=== PATIENT | female | born 1960 | race Caucasian/White ===

== ENCOUNTER → 2019-01-03 08:03 | Outpatient (CLI) | payer OTHER, SELFPAY ==
--- NOTE | 2019-01-03 08:08 | BI_ITS ---
MAMMOGRAPHY - BILATERAL SCREENING REASON FOR EXAM: Female, 58 years old. Routine annual screening examination. PERTINENT HISTORY: Non-contributory. TECHNIQUE: Digital bilateral breast cesia (3D mammographic acquisition) in the CC and MLO projections. 2-D mediolateral oblique (MLO) and craniocaudad (CC) views of both breasts were obtained. CAD: Full Field Digital Mammography with Computer Added Detection was performed. COMPARISON: Comparison is made with prior arteriogram examination dated July 08, 2016. FINDINGS: Breast Composition: The breasts are heterogeneously dense, which may obscure small masses. There are no dominant masses or suspicious calcifications. No other significant abnormalities are identified. There has been no significant change since the prior study. BI/SCREENING MAMM (CAD), BILAT IMPRESSION: Stable bilateral screening mammogram. Yearly follow-up mammogram recommended. (A) ASSESSMENT CATEGORY: BIRADS Category 1: Negative. A letter regarding these results will be sent to the patient by the facility within 30 days. Approximately 10% of breast cancers are not detected by mammography. A normal mammogram should not delay biopsy of a clinically suspicious abnormality. [id number] Electronically Signed: Satya Brooks, at 9:42 EST , Service support ,
== END ==
PROVIDERS: Referring Provider Family Medicine; Visit Provider Family Medicine
DX: Z12.31 Encounter for screening mammogram for malignant neoplasm of breast (principal)
CPT/HCPCS: 77063; 77067

== ENCOUNTER → 2020-12-24 15:00 | Outpatient (CLI) | payer OTHER, SELFPAY ==
[2020-12-24 18:18] LABS: Anion Gap 6 (5-15); BUN 17 mg/dL (7-18); BUN/Creat Ratio 24.8 RATIO (10-20); Calcium,Total 8.7 mg/dL (8.5-10.1); Chloride 108 mmol/L (98-107); Creatinine, Serum 0.68 mg/dL (0.55-1.02); EST Glomerular Filtration Rate 92 mL/min (>60); Est Glom Filt Rate - Afr Amer 112 mL/min (>60); Glucose 102 mg/dL (74-106); Magnesium 2.1 mg/dL (1.6-2.6); Potassium 3.6 mmol/L (3.5-5.1); Sodium Level 142 mmol/L (136-145); Thyroid Stim Hormone (TSH) 1.11 uIU/mL (0.358-3.74)
== END ==
PROVIDERS: PCP Family Medicine; Visit Provider Family Medicine
DX: R00.2 Palpitations (principal)
CPT/HCPCS: 36415; 80048; 83735; 84443

== ENCOUNTER → 2020-12-28 13:33 | Outpatient (CLI) | payer OTHER, SELFPAY ==
--- NOTE | 2020-12-28 13:37 | BI_ITS ---
MAMMOGRAPHY - BILATERAL SCREENING REASON FOR EXAM: Female, 60 years old. Routine annual screening examination. PERTINENT HISTORY: Non-contributory. TECHNIQUE: Digital bilateral breast roshan (3D mammographic acquisition) in the CC and MLO projections. 2-D mediolateral oblique (MLO) and craniocaudad (CC) views of both breasts were obtained. CAD: Full Field Digital Mammography with Computer Added Detection was performed. COMPARISON: Comparison is made with prior examination dated 01/03/2019. FINDINGS: Breast Composition: The breasts are heterogeneously dense, which may obscure small masses. There are no dominant masses or suspicious calcifications. No other significant abnormalities are identified. There has been no significant change since the prior study. BI/SCRN MAMM (CAD)W/ROSHAN BILAT IMPRESSION: Stable bilateral screening mammogram. Yearly follow-up mammogram recommended. (A) ASSESSMENT CATEGORY: BIRADS Category 1: Negative. A letter regarding these results will be sent to the patient by the facility within 30 days. Approximately 10% of breast cancers are not detected by mammography. A normal mammogram should not delay biopsy of a clinically suspicious abnormality. [id number] Electronically Signed: Satya Brooks MD at 14:23 EST , Service support ,
== END ==
PROVIDERS: PCP Family Medicine; Referring Provider Family Medicine; Visit Provider Family Medicine
DX: Z12.31 Encounter for screening mammogram for malignant neoplasm of breast (principal)
CPT/HCPCS: 77063; 77067

== ENCOUNTER → 2021-01-18 12:41 | Outpatient (CLI) | payer OTHER, SELFPAY ==
--- NOTE | 2021-01-18 12:46 | CDU_ITS ---
Reason For Study: TIA's with complete right vision loss Rt. Velocities/BP Lt. Velocities/BP Prox CCA 90.4/16 cm/sec. Prox CCA 83.4/25.8 cm/sec. Mid CCA 64.3/18.6 cm/sec. Mid CCA 74/22 cm/sec. Dist CCA 68.2/21.3 cm/sec. Dist CCA 76.8/24.8 cm/sec. Prox ICA 57.8/17.3 cm/sec. Prox ICA 80.6/25.8 cm/sec. Mid ICA 81.2/33 cm/sec. Mid ICA 86/34.4 cm/sec. Dist ICA 98.2/36.9 cm/sec. Dist ICA 78.3/28.9 cm/sec. Rt. ICA/CCA = 1.4. Lt. ICA/CCA = 1.1. Prox ECA 70.8/18.6 cm/sec. Prox ECA 75.9/21.1 cm/sec. Rt. Vert. 31.5/12.6 cm/sec. Lt. Vert. 32.5/11.6 cm/sec. Right Extracranial There is intimal thickening but no significant atherosclerotic plaque noted in the right common carotid artery. There is intimal thickening but no significant atherosclerotic plaque noted in the right internal carotid artery. There is intimal thickening but no significant atherosclerotic plaque noted in the right external carotid artery. Antegrade flow is noted in the right vertebral artery. Left Extracranial There is intimal thickening but no significant atherosclerotic plaque noted in the left common carotid artery. There is intimal thickening but no significant atherosclerotic plaque noted in the left internal carotid artery. There is intimal thickening but no significant atherosclerotic plaque noted in the left external carotid artery. Antegrade flow is noted in the left vertebral artery. Procedure Carotid Duplex [id number]. This is a Carotid Duplex examination using B-mode, color flow and specral Doppler. Exam performed in department. Interpretation Summary Mild (<50%) stenosis right extracranial internal carotid. Mild (<50%) stenosis left extracranial internal carotid. Flow within the vertebral arteries is antegrade bilaterally. Ordering Physician: Stepan Yeung Referring Physician: Stepan Yeung Performed By: Stephanie Shea RVT
--- NOTE | 2021-01-18 12:46 | ECHOD_ITS ---
Reason For Study: TIA Procedure This was a 2D Doppler, Color Flow transthoracic echocardiogram. Bubble Study Performed. Exam performed in department. Left Ventricle Normal LV size. Left ventricular systolic function is normal. The estimated ejection fraction is 60 %. No regional wall motion abnormalities noted. Right Ventricle Normal RV size. Normal systolic function. Atria Normal left atrium. Normal right atrium. Bubble contrast study negative for right to left interatrial shunt. Mitral Valve Normal mitral valve. Tricuspid Valve Normal tricuspid valve. Aortic Valve Normal aortic valve. Trisinus/trileaflet aortic valve. Pulmonic Valve Normal pulmonic valve. Great Vessels Normal aortic root. The pulmonary artery is normal size. Normal inferior vena cava. Pericardium/Pleural No pericardial effusion. Medication 22 gauge I.V. with prn adaptor inserted into right arm. Performed a rapid injection of agitated mix of 9 cc saline and 1cc air to assess for atrial septal defect. MMode/2D Measurements & Calculations LVIDd: 4.4 cm IVSd: 0.73 cm Ao root diam: 3.4 cm LVIDs: 2.5 cm LVPWd: 0.99 cm LA dimension: 3.5 cm FS: 42.6 % LAV(MOD-bp): 47.1 ml LA A4 area: 16.7 cm2 LAV(MOD-bp) Indexed: 25.6 ml/m2 LAV(MOD-sp2): 45.4 ml LAV(MOD-sp4): 44.3 ml Time Measurements MV dec time: 0.33 sec Doppler Measurements & Calculations MV E max kt: 70.1 cm/sec Lat Peak E' Kt: 10.5 cm/sec Med Peak E' Kt: 8.4 cm/sec MV A max kt: 95.4 cm/sec E/E' lat: 6.7 E/E' med: 8.4 MV E/A: 0.73 MV V2 max: 84.7 cm/sec MV P1/2t max kt: 72.3 cm/sec Ao V2 max: 109.6 cm/sec MV max P.9 mmHg MV P1/2t: 55.7 msec Ao max P.8 mmHg MV V2 mean: 44.8 cm/sec MV dec slope: 379.6 cm/sec2 MV mean P.95 mmHg MV V2 VTI: 27.2 cm MVA(P1/2t): 3.9 cm2 LV V1 max: 105.2 cm/sec PA V2 max: 79.9 cm/sec TR max kt: 239.3 cm/sec LV V1 max P.4 mmHg TR max P.9 mmHg Interpretation Summary Normal LV size. Left ventricular systolic function is normal. The estimated ejection fraction is 60 %. Bubble contrast study negative for right to left interatrial shunt. Ordering Physician: Stepan Yeung Referring Physician: Stepan Yeung Performed By: Javon Hay RCS
== END ==
PROVIDERS: PCP Family Medicine; Referring Provider Family Medicine; Visit Provider Family Medicine
DX: G45.3 Amaurosis fugax (principal); R00.2 Palpitations
CPT/HCPCS: 93306; 93880; A4216

== ENCOUNTER → 2021-01-20 15:34 | Outpatient (CLI) | payer OTHER, SELFPAY ==
[2021-01-20 14:40] VITALS: BMI 26.8
[2021-01-20 16:27] LABS: AST(SGOT) 16 U/L (15-37); Alanine Aminotransfer ALT/SGPT 28 U/L (13-56); Albumin, Serum 3.8 g/dL (3.2-5.0); Alkaline Phosphatase 73 U/L (45-117); Anion Gap 5 (5-15); BUN 21 mg/dL (7-18); BUN/Creat Ratio 38.7 RATIO (10-20); Bilirubin, Direct 0.14 mg/dL (0.00-0.30); Calcium,Total 8.6 mg/dL (8.5-10.1); Chloride 108 mmol/L (98-107); Cholesterol 224 mg/dL (200); Creatinine, Serum 0.54 mg/dL (0.55-1.02); EST Glomerular Filtration Rate 121 mL/min (>60); Est Glom Filt Rate - Afr Amer 146 mL/min (>60); Globulin 3.5 g/dL (2.2-4.2); Glucose 89 mg/dL (74-106); High Density Lipoprotein 83 mg/dL; Potassium 3.9 mmol/L (3.5-5.1); Protein, Total 7.3 g/dL (6.4-8.2); Sodium Level 140 mmol/L (136-145); Triglycerides 105 mg/dL; Very Low Density Lipoprotein 21 mg/dL (5-40)
== END ==
PROVIDERS: PCP Family Medicine; Referring Provider Internal Medicine Cardiovascular Disease; Visit Provider Internal Medicine Cardiovascular Disease
DX: G45.3 Amaurosis fugax (principal); R00.2 Palpitations
CPT/HCPCS: 36415; 80048; 80061; 80076

== ENCOUNTER 2021-01-26 07:34 | Day surgery (SDC) | payer OTHER, SELFPAY ==
[2021-01-20 14:40] VITALS: BMI 26.8
[2021-01-25 11:29] VITALS: BMI 26.8
--- NOTE | 2021-01-26 08:48 | CL.IE_ITS ---
Patient: SANCHO SHANNON Study Date: 01/26/2021 Performing: Artie Veronica MD : 1960 Age: 60 Gender: female PROCEDURES PERFORMED [id number] OF LOOP RECORDER INDICATIONS Cryptogenic stroke PROCEDURE DETAILS The patient was brought to the Catheterization Lab in the postabsorptive nonsedated state. Infor [facility] consent was obtained prior to the procedure. Local anesthetic was given subcutaneously to the le ft upper chest area with Lidocaine 2%. Incision was made to the left upper chest. ICM Loop Recorder w as inserted. The patient tolerated the procedure well. Estimated Blood Loss: 3 ml's IMPLANTED / EX-PLANTED DEVICES IMPLANTED DEVICE(S): ICM Loop Recorder - Scale Technician: [employer], Model # [id number] , Serial # [id number] DEVICE PARAMETERS CONCLUSIONS / RECOMMENDATIONS Device Conclusions: Successful implantation of a patient activated loop recorder. Device Recommendations: Follow up with Primary Care Physician PROCEDURE MEDICATIONS Antibiotic given in appropriate timeframe. Ancef 2 Gm IV @ 01/26/2021 08:15:47 Signed By Artie Veronica MD On 01/26/2021 08:47:58 Artie Veronica MD
== END 2021-01-26 09:50 | disposition home or self-care (01) ==
LOC: CLSP 07:35
PROVIDERS: PCP Family Medicine; Referring Provider Internal Medicine Cardiovascular Disease; Visit Provider Internal Medicine Cardiovascular Disease
DX: G45.3 Amaurosis fugax (principal); R00.2 Palpitations; F32.9 Major depressive disorder, single episode, unspecified; Z79.82 Long term (current) use of aspirin; Z79.899 Other long term (current) drug therapy; Z87.891 Personal history of nicotine dependence
CPT/HCPCS: 33285; J7040

== ENCOUNTER → 2022-09-05 | Outpatient (CLI) | payer OTHER, SELFPAY ==
--- NOTE | 2022-09-05 13:27 | BI_ITS ---
MAMMOGRAPHY - BILATERAL SCREENING REASON FOR EXAM: Female, 62 years old. Routine annual screening examination. PERTINENT HISTORY: Non-contributory. TECHNIQUE: Digital bilateral breast roshan (3D mammographic acquisition) in the CC and MLO projections. 2-D mediolateral oblique (MLO) and craniocaudad (CC) views of both breasts were obtained. CAD: Full Field Digital Mammography with Computer Added Detection was performed. COMPARISON: Comparison is made with prior study dated 12/28/2020 and 01/03/2019. FINDINGS: Breast Composition: The breasts are heterogeneously dense, which may obscure small masses. There are no dominant masses or suspicious calcifications. Loop recording device is seen in the deep central medial aspect of the left breast. No other significant abnormalities are identified. There has been no significant change since the prior study. BI/SCRN MAMM (CAD)W/ROSHAN BILAT IMPRESSION: Stable bilateral screening mammogram. Yearly follow-up mammogram recommended. (A) ASSESSMENT CATEGORY: BIRADS Category 2: Benign. A letter regarding these results will be sent to the patient by the facility within 30 days. Approximately 10% of breast cancers are not detected by mammography. A normal mammogram should not delay biopsy of a clinically suspicious abnormality. [id number] Electronically Signed: Satya Brooks MD at 14:30 EDT ,
== END | disposition home or self-care (01) ==
LOC: OPBI 13:26
PROVIDERS: PCP Family Medicine; Referring Provider Family Medicine; Visit Provider Family Medicine
DX: Z12.31 Encounter for screening mammogram for malignant neoplasm of breast (principal)
CPT/HCPCS: 77063; 77067

== ENCOUNTER → 2023-04-11 | Outpatient (CLI) | payer OTHER, SELFPAY ==
[2023-04-11 14:58] LABS: Absolute Lymphocyte Count 1.56 X10^3/uL (0.83-4.51); Absolute Neutrophil Count 2.6 X10^3/uL (2.0-7.7); Basophil# 0.04 X10^3/uL; Basophil% 0.8 % (0-1); Eosinophil# 0.08 X10^3/uL; Eosinophils% 1.7 % (0-5); Hematocrit 44.9 % (37-47); Hemoglobin 14.4 g/dL (12.0-15.0); Lymphocyte # 1.56 X10^3/ul (0.83-4.51); Lymphocyte % 32.3 % (19-41); Mean Corp Hgb Conc 32.1 g/dL (32-36); Mean Corpuscular Hgb 30.4 pg (27.0-32.0); Mean Corpuscular Volume 94.7 fL (81-99); Mean Platelet Vol. 10.6 fl (6.2-12.0); Monocyte# 0.53 X10^3/uL; NRBC Flagged by Analyzer 0 % (0-5); Neutrophil # 2.61 X10^3/uL (2.7-7.7); Platelet Count 276 K/mm3 (150-450); RBC Distribution Width CV 12.9 % (11.6-14.6); RBC Distribution Width SD 45.1 fl (35.1-43.9); Red Blood Count 4.74 M/mm3 (4.2-5.4); White Blood Count 4.8 K/mm3 (4.4-11.0)
[2023-04-11 15:39] LABS: AST(SGOT) 20 U/L (15-37); Alanine Aminotransfer ALT/SGPT 19 U/L (13-56); Albumin, Serum 3.9 g/dL (3.2-5.0); Alkaline Phosphatase 56 U/L (45-117); Anion Gap 4 (5-15); BUN 17 mg/dL (7-18); Chloride 106 mmol/L (98-107); Creatinine, Serum 0.71 mg/dL (0.55-1.02); EST Glomerular Filtration Rate 88 mL/min (>60); Est Glom Filt Rate - Afr Amer 107 mL/min (>60); Globulin 3.8 g/dL (2.2-4.2); Glucose 87 mg/dL (74-106); Protein, Total 7.7 g/dL (6.4-8.2); Sodium Level 139 mmol/L (136-145)
== END | disposition home or self-care (01) ==
LOC: BFHLAB 13:36
PROVIDERS: PCP Nurse Practitioner Family; Referring Provider Nurse Practitioner Family; Visit Provider Nurse Practitioner Family
DX: R10.32 Left lower quadrant pain (principal)
CPT/HCPCS: 36415; 80053; 85025

== ENCOUNTER → 2023-05-01 | Outpatient (CLI) | payer OTHER, SELFPAY ==
--- NOTE | 2023-05-01 14:52 | CT_ITS ---
STUDY: CT ABDOMEN AND PELVIS WITH CONTRAST REASON FOR EXAM: Female, 62 years old. 3 week history of right upper quadrant pain. RADIATION DOSAGE (If Supplied By Facility): CTDIvol = ( 12.99 ) mGy, DLP = ( 568.18 ) mGycm TECHNIQUE: Transaxial images were obtained from the dome of the diaphragm to the symphysis pubis without oral contrast. Oral and amp;amp; IV Redi-CAT and amp;amp; 100mL Isovue-300 was administered. Sagittal and coronal images were reconstructed. Individualized dose optimization techniques were used for this CT. COMPARISON: None. FINDINGS: The visualized lung bases are unremarkable. The visualized portions of the heart are within normal limits. Normal liver. Normal gallbladder and extrahepatic biliary system. Normal spleen. Normal pancreas. Normal bilateral adrenal glands. Normal right kidney. 1.2 cm cyst in the lateral portion of the left kidney. Normal visualized stomach. Normal small intestine. There are scattered colonic diverticula consistent with diverticulosis. The appendix is visualized and appears normal. Normal abdominal aorta. Normal inferior vena cava. Normal retroperitoneum. Normal urinary bladder. There is a 3.1 cm x 2.6 cm cyst in the left ovary. There is a 2.2 cm x 1.9 cm cyst in the right ovary. Normal abdominal wall. Normal osseous structures. CT/Abdomen/Pelvis WITH Contrast IMPRESSION: Bilateral ovarian cysts. Scattered sigmoid diverticula. Electronically Signed: Satya Brooks MD at 11:05 EDT ,
== END | disposition home or self-care (01) ==
PROVIDERS: PCP Family Medicine; Referring Provider Nurse Practitioner Family; Visit Provider Nurse Practitioner Family
DX: R10.31 Right lower quadrant pain (principal)
CPT/HCPCS: 74177; Q9967

== ENCOUNTER 2023-05-08 06:49 | Day surgery (SDC) | payer OTHER, SELFPAY ==
[2023-05-08] MEDS: Lactated Ringers 1,000 ML 15 ML IV (07:21)
[2023-05-08 07:22] VITALS: BP 112/68; PULSE 60; RESP 18; TEMP 36.5; O2SAT 100; BMI 26.6
--- NOTE | 2023-05-08 07:53 | H&P.OPEN ---
HPI - General HPI Narrative SANCHO SHANNON, is a 62 F who presents for screening colonoscopy. Patient has not had a colonoscopy in the past. She had a negative Cologuard 2 years ago. She denies any blood in the stool. She says she always has a small amount of right-sided abdominal pain has been going on for the last 3 months. She has no family history of colon cancer she does have family history of polyps. [facility] Medical History (Updated 05/04/23 @ 11:48 by Swati Alexandra) Alcohol use Amaurosis fugax of right eye Cardiology follow-up encounter Former smoker History of diverticulitis History of echocardiogram Intermittent palpitations Migraine headache Post-menopausal Wears contact lenses Home Medications aspirin 81 mg tablet,delayed release (Adult Low Dose Aspirin) 81 mg PO DAILY 01/18/21 [History Last Taken Unknown] metoprolol succinate 25 mg tablet,extended release 24 hr 25 mg PO DAILY #90 tabs 06/08/22 [Rx Last Taken 05/08/23] Allergy/AdvReac Type Severity Reaction Status Date / Time Sulfa (Sulfonamide Allergy hand Verified 05/04/23 11:42 Antibiotics) swelling meperidine [From Demerol] AdvReac vein Verified 05/04/23 11:42 irritation Family History (Updated 04/17/23 @ 10:48 by Alba Shaver) Mother blood clots Hypertension Heart disease CHF Colon polyps Father Hypertension Parkinson disease Brother Hypertension Sister Colon polyps Surgical History (Updated 05/04/23 @ 11:48 by Swati Alexandra) History of History of left heart catheterization (11/29/01) History of loop recorder (01/26/21) History of tubal ligation Social History Smoking Status: Former smoker alcohol intake: current alcohol intake frequency: holidays/special occasions only Past Medical/Surgical History Planned Operation Planned Operative Procedure/s: CSCOPE OA Previous Hospitalizations/Surgeries HX Hospitalizations: No HX of Surgeries: , heart cath, tubal ligation Any Problems With Anesthesia: No You/Your Family Experience Fever (Hyperthermia) With Anes: No Cholinesterase deficiency: No Cardiovascular Hx Chest Pain within Last 2 months: No Hx of Irregular Heartbeat and/or Afib: No Hx Heart Attack: No Hx Congestive Heart Failure: No Hx Rheumatic Fever: No Hx Hypertension: No Hx Internal Defibrillator: No Hx Pacemaker: No Hx Cardiac Catheterization: Yes What facility was last heart cath performed: unknown Date of last Heart Cath: unknown Hx Cardiac Surgery/Stents/Etc.: No Hx Stress Test: Yes Respiratory Chronic Cough: No Hx Chronic Obstructive Pulmonary Disease (COPD): No Hx Asthma: No Hx Emphysema: No Hx Sleep Apnea: No Hx Respiratory Tract Infection/Cold (presently): No Do You Snore Loudly (louder than talking or can be heard): No Do You Often Feel Tired/ Fatigued/ Sleepy Dring Daytime?: No Has Anyone Observed You Stop Breathing During Sleep?: No Result (for STOP score): Negative Hx Smoking: Yes Smoking Status: Former smoker Gastrointestinal Hx Gastroesophageal Reflux: No Hx Ulcer: No Hx Unplanned Weight Loss of 20#: No HX Unplanned Weight Gain of 20#: No Neurological Hx Seizures: No HX Syncope/Blackout Spells/Unconsciousness: No Hx Headaches: No Does patient have nerve stimulator: No Blood Disorder Hx Deep Vein Thrombosis: No Hx High Cholesterol: Yes Hx Hepatitis: No Hx Anemia: No Reproduction : No Genitourinary Hx Dialysis: No Musculoskeletal Hx Arthritis: No Endocrine Hx Diabetes: No Psycho/Social Hx Alcohol Use: No Hx Anxiety: No Hx Depression: Yes Miscellaneous Hx Cancer: No Recent Exposure to Contagious Disease: No Allergies Sulfa (Sulfonamide Antibiotics) Allergy (Verified 05/04/23 11:42) hand swelling meperidine [From Demerol] Adverse Reaction (Verified 05/04/23 11:42) vein irritation Discharge Is Pt Admitted From a Residential, or a [facility]: No After D/C, Where Do you Plan to Go: Return Home From the PAT History Number of Risk Factors: 1 Vital Signs Vital Signs Vital Signs: 05/08/23 07:22 05/08/23 07:22 Temperature 97.7 F L Temperature Source Temporal Pulse Rate 60 Respiratory Rate 18 Respiratory Pattern Normal Blood Pressure 112/68 Blood Pressure Mean 82 Blood Pressure Source Monitor Blood Pressure Position Semi-Fowlers Blood Pressure Location Right Arm Pulse Ox 100 Oxygen Delivery Method Room Air Weight Weight: 165 lb Body Mass Index (BMI) 26.6 Physical Exam Const alert and oriented x3 HEENT normocephalic Eyes PERRL Resp normal respiratory effort and normal air movement Cardio regular rate and regular rhythm GI soft to palpation, non-tender and non-distended Extremity normal to inspection Assessment & Plan Assessment/Plan (1) Encounter for screening for malignant neoplasm of colon: PLAN: I explained endoscopy in detail to the patient. I explained the risks including but not limited to stroke or heart attack with anesthesia, perforation of the GI tract, bleeding, infection. I explained that any of these could necessitate further emergency surgery. The patient understands and all questions were answered sufficiently. The patient wishes to proceed with procedure. Nirmal Newberry MD Pager: [facility] [address] [place] [address] [address] [place] [address] Office: Surgery Risks - Colonoscopy Risks Include but are not Limited To: Risks include but are not limited to: Bleeding, perforation requiring further surgery, inability to complete colonoscopy requiring barium enema.
[2023-05-08 08:22] VITALS: BP 112/68; BP 88/52; PULSE 62; RESP 12; TEMP 36.4; O2SAT 95
--- NOTE | 2023-05-08 08:26 | OP.COLON_ITS ---
Patient Name: Agnely Mancia Procedure Date: 05/08/2023 7:56 AM Date of : 1960 Age: 62 Procedure: Colonoscopy Indications: Screening for colorectal malignant neoplasm Providers: Nirmal Newberry MD Medicines: Monitored Anesthesia Care Patient Profile: This is a 62 year old female. Refer to note in patient chart for documentation of history and physical. Last Colonoscopy: none. The patient's first colonoscopy is today. Complications: No immediate complications. Procedure: Pre-Anesthesia Assessment: - Prior to the procedure, a History and Physical was performed, and patient medications and allergies were reviewed. The patient's tolerance of previous anesthesia was also reviewed. The risks and benefits of the procedure and the sedation options and risks were discussed with the patient. All questions were answered, and informed consent was obtained. Prior Anticoagulants: The patient has taken no previous anticoagulant or antiplatelet agents. ASA Grade Assessment: II - A patient with mild systemic disease. After reviewing the risks and benefits, the patient was deemed in satisfactory condition to undergo the procedure. After I obtained informed consent, the scope was passed under direct vision. Throughout the procedure, the patient's blood pressure, pulse, and oxygen saturations were monitored continuously. The colonoscope was introduced through the anus and advanced to the cecum, identified by appendiceal orifice and ileocecal valve. The colonoscopy was performed without difficulty. The patient tolerated the procedure well. The quality of the bowel preparation was good. Scope In: 8:05:12 AM Scope Withdrawal Time 0 hours 6 minutes 25 seconds Scope Out: 8:18:39 AM Total Procedure Duration Time 0 hours 13 minutes 27 seconds Findings: The entire examined colon appeared normal on direct and retroflexion views. Impression: - The entire examined colon is normal on direct and retroflexion views. - No specimens collected. Recommendation: - Discharge patient to home. - Resume previous diet. - Continue present medications. - Repeat colonoscopy in 10 years for screening purposes. Procedure Code(s): --- Professional --- 66200, Colonoscopy, flexible; diagnostic, including collection of specimen(s) by brushing or washing, when performed (separate procedure) Diagnosis Code(s): --- Professional --- Z12.11, Encounter for screening for malignant neoplasm of colon CPT copyright 2017 [employer]. All rights reserved. The codes documented in this report are preliminary and upon instrument worker review may be revised to meet current compliance requirements. Nirmal Newberry MD 05/08/2023 8:26:17 AM This report has been signed electronically. Number of Addenda: 0 Note Initiated On: 05/08/2023 7:56 AM
[2023-05-08 08:27] VITALS: BP 112/68; BP 99/57; PULSE 74; RESP 18; O2SAT 99
--- NOTE | 2023-05-08 08:27 | OP.CCLET_ITS ---
05/08/2023 Alicia Alston [address] [place] [address] Re : Colonoscopy procedure for Angely Gavino Dear Dr. Alston This procedure was performed on Monday, May 08, 2023. My impressions and recommendations are as follows: Impressions : - The entire examined colon is normal on direct and retroflexion views. - No specimens collected. Recommendations : - Discharge patient to home. - Resume previous diet. - Continue present medications. - Repeat colonoscopy in 10 years for screening purposes. My findings are described in the full procedure note, which is enclosed. If I can be of further assistance, please feel free to contact me at Doctor phone number(s): , Work: . Sincerely, Nirmal Newberry MD 05/08/2023 8:26:17 AM This report has been signed electronically.
[2023-05-08 08:29] VITALS: BP 112/68; BP 98/85; PULSE 72; RESP 18; O2SAT 97
[2023-05-08 08:34] VITALS: BP 112/68; BP 93/66; PULSE 59; RESP 18; TEMP 36.1; O2SAT 97
[2023-05-08 08:55] VITALS: BP 112/68
== END 2023-05-08 09:04 | disposition home or self-care (01) ==
LOC: SDC 06:56 → AC 06:57
PROVIDERS: PCP Family Medicine; Referring Provider Family Medicine; Visit Provider Surgery
PROC: 0DJD8ZZ Inspection of Lower Intestinal Tract, Via Natural or Artificial Opening Endoscopic (ICD-10-PCS; CPT 45378; principal; 2023-05-08 07:55)
DX: Z12.11 Encounter for screening for malignant neoplasm of colon (principal); Z79.82 Long term (current) use of aspirin; Z87.891 Personal history of nicotine dependence; Z79.899 Other long term (current) drug therapy; Z87.19 Personal history of other diseases of the digestive system
CPT/HCPCS: 45378; J7120; J2405

== ENCOUNTER → 2023-09-13 | Outpatient (CLI) | payer OTHER, SELFPAY ==
--- NOTE | 2023-09-13 13:37 | BI_ITS ---
MAMMOGRAPHY - BILATERAL SCREENING REASON FOR EXAM: Female, 63 years old. Routine annual screening examination. PERTINENT HISTORY: Non-contributory. TECHNIQUE: Digital bilateral breast roshan (3D mammographic acquisition) in the CC and MLO projections. 2-D mediolateral oblique (MLO) and craniocaudad (CC) views of both breasts were obtained. CAD: Full Field Digital Mammography with Computer Added Detection was performed. COMPARISON: Comparison is made with prior study September 05, 2022 and December 28, 2020. FINDINGS: Breast Composition: The breasts are heterogeneously dense, which may obscure small masses. There are no dominant masses or suspicious calcifications. A loop recorder device is seen in the deep central medial portion of the left breast. No other significant abnormalities are identified. There has been no significant change since the prior study. BI/SCRN MAMM (CAD)W/ROSHAN BILAT IMPRESSION: Stable bilateral screening mammogram. Yearly follow-up mammogram recommended. (A) ASSESSMENT CATEGORY: BIRADS Category 2: Benign. A letter regarding these results will be sent to the patient by the facility within 30 days. Approximately 10% of breast cancers are not detected by mammography. A normal mammogram should not delay biopsy of a clinically suspicious abnormality. [id number] Electronically Signed: Satya Brooks MD at 14:43 EST ,
== END | disposition home or self-care (01) ==
LOC: OPBI 13:36
PROVIDERS: PCP Family Medicine; Referring Provider Family Medicine; Visit Provider Family Medicine
DX: Z12.31 Encounter for screening mammogram for malignant neoplasm of breast (principal)
CPT/HCPCS: 77063; 77067

== ENCOUNTER 2023-11-25 22:17 | Inpatient (IN) | payer OTHER, MEDICARE, SELFPAY ==
[2023-11-25 22:24] VITALS: BP 130/68; PULSE 107; RESP 28; TEMP 37.4; O2SAT 70; BMI 27.8
--- NOTE | 2023-11-25 22:25 | ED.RN ---
pt walked in with friends assisting. blue lips. vitals obtained, pre-reg and then took straight to ED room 1 and placed on 4L NC.
[2023-11-25 22:35] VITALS: BP 130/68; PULSE 107; RESP 28; TEMP 37.4; O2SAT 89
--- NOTE | 2023-11-25 22:44 | ED.VIS.DYS ---
HPI History of Present Illness Chief Complaint: Shortness of Breath Informant: patient and family Narrative Narrative: Patient presents with cough and dyspnea. Patient states she has been coughing for about 2 weeks. It has been a dry cough. No productivity. No blood. It does not hurt to breathe. No chest pain or palpitations. She has not heard wheezing. She has felt kind of tired. She has taken COVID test that were negative. She thought she might be tired because her son's wedding was today and she has been busy with that. She has no recent travel surgery immobilization personal or family history of DVT or PE. No leg pain or swelling. No fevers at any time. She quit smoking over 30 years ago. She has never had a cardiovascular disease. She has a history of an increased heart rate and is on metoprolol but has been on a stable dose for 3 years. She states it is a little hard to breathe over the last 2 or so days. But coughing was 2 weeks. But no discomfort whatsoever. [facility] Medical History Alcohol use Amaurosis fugax of right eye Cardiology follow-up encounter Former smoker History of diverticulitis History of echocardiogram Intermittent palpitations Migraine headache Post-menopausal Wears contact lenses Home Medications aspirin 81 mg tablet,delayed release (Adult Low Dose Aspirin) 81 mg PO DAILY 01/18/21 [History Last Taken Unknown] metoprolol succinate 25 mg tablet,extended release 24 hr 25 mg PO DAILY #90 tabs 07/28/23 [Rx Last Taken Unknown] ascorbic acid (vitamin C) 500 mg tablet,extended release (C Complex) 500 mg PO DAILY 11/25/23 [History Last Taken Unknown] Allergy/AdvReac Type Severity Reaction Status Date / Time Sulfa (Sulfonamide Allergy hand Verified 11/25/23 22:42 Antibiotics) swelling meperidine [From Demerol] AdvReac vein Verified 11/25/23 22:42 irritation Family History Mother blood clots Hypertension Heart disease CHF Colon polyps Father Hypertension Parkinson disease Brother Hypertension Sister Colon polyps Surgical History History of History of left heart catheterization (11/29/01) History of loop recorder (01/26/21) History of tubal ligation Social History Smoking Status: Former smoker alcohol intake: current alcohol intake frequency: holidays/special occasions only ROS ROS ED Constitutional Constitutional ED: Denies chills, fever(s) or sweats Eyes Eyes: Denies change in vision ENT ENT ED: Denies rhinorrhea or sore throat Cardiovascular Cardiovascular: Denies chest pain, palpitations or racing heartbeat Respiratory/Chest Respiratory/Chest: Reports cough, dyspnea and dyspnea on exertion; Denies sputum Gastrointestinal Gastrointestinal: Denies nausea or vomiting Musculoskeletal Musculoskeletal: Reports myalgias and other Details: Had some slight myalgias earlier in the illness. Integumentary Denies rash Neurologic Neurologic: Denies headache(s) Endocrine Endocrinology: Denies polydipsia or polyuria Hematologic/Lymphatic Hematologic/Lymphatic: Denies lymphadenopathy Allergic/Immunologic Allergic/Immunologic ED: Denies urticaria EXAM Physical Exam Narrative Exam Narrative: CONSTITUTIONAL: Patient is nontoxic in appearance. The patient looks comfortable. Patient is running about 89% on 6 L. But she looks amazingly comfortable with this. She is telling her history. She is smiling and laughing. She is joking with her friends and us. She has a wide awake alert and shockingly nontoxic. HEENT: No notable trauma. Mucous membranes still moist. No sinus tenderness. I see no swelling or mass. She does speak with a very quiet voice and has admitted to having some laryngitis with this. But she does not feel like her throat is closing in any way. EYES: No conjunctival injection. No proptosis. NECK:No JVD. No stridor. CARDIOVASCULAR: Mildly tachycardic rate. Regular rhythm except for an occasional PAC on the monitor. No notable murmur. No JVD. RESPIRATORY: Some increased work of breathing but much less than 1 would think considering her hypoxia. She has a few coarse breath sounds in her mid lower lungs. No definitive wheezing. No specific rhonchi. GASTROINTESTINAL: Not distended. Bowel sounds are normal. No tenderness. No guarding. No rebound. No palpable mass. No bruit is heard. GENITOURINARY: No tenderness over the bladder. No CVA tenderness. MUSCULOSKELETAL: Atraumatic. No peripheral edema. No cord. No tenderness along the deep venous system. No asymmetry. No distended veins. She states her legs are normal. NEUROLOGICAL: Patient is alert and appropriate. No focal deficit noted. SKIN: No noted rashes. No diaphoresis. She apparently was a bit cyanotic when she came through the door at 70% but her color is normal now. PSYCHIATRIC: Patient is calm. Mood is appropriate. Const Vital Signs: 11/25/23 22:24 11/25/23 22:35 11/25/23 22:35 Temperature 99.4 F H 99.4 F H Temperature Source Oral Oral Pulse Rate 107 H 107 H Respiratory Rate 28 H 28 H Respiratory Effort Short of Breath Respiratory Pattern Gasping Blood Pressure 130/68 H 130/68 H Blood Pressure Mean 88 88 Pulse Ox 70 89 Oxygen Delivery Method Room Air Nasal Cannula Oxygen Flow Rate (L/min) 6 Fraction of Inspired Oxygen (FIO2) 11/25/23 22:54 11/25/23 23:00 11/25/23 23:00 Temperature Temperature Source Pulse Rate 104 H Respiratory Rate 26 H Respiratory Effort Respiratory Pattern Tachypnea Blood Pressure Blood Pressure Mean Pulse Ox 97 96 Oxygen Delivery Method Nasal Cannula Nasal Cannula Oxygen Flow Rate (L/min) 6 6 Fraction of Inspired Oxygen (FIO2) 11/26/23 01:00 11/26/23 01:14 11/26/23 01:15 Temperature Temperature Source Pulse Rate 94 89 Respiratory Rate 28 H 25 H Respiratory Effort Respiratory Pattern Tachypnea Blood Pressure 109/52 L Blood Pressure Mean 71 Pulse Ox 95 92 50 Oxygen Delivery Method Airvo Airvo Oxygen Flow Rate (L/min) Fraction of Inspired Oxygen (FIO2) 50 50 11/26/23 01:16 Temperature Temperature Source Pulse Rate 90 Respiratory Rate 25 H Respiratory Effort Respiratory Pattern Blood Pressure 95/81 H Blood Pressure Mean 85 Pulse Ox 93 Oxygen Delivery Method Oxygen Flow Rate (L/min) Fraction of Inspired Oxygen (FIO2) MDM MDM MDM Narrative Medical decision making narrative: Although she does not have notable wheezing, she does have auscultatory sounds and she will be given a DuoNeb to see if this provides benefit. We will do a CTA. Even if her D-dimer is negative and x-ray is negative we need more definitive answers due to her significant hypoxia. My independent interpretation of the patient's CTA shows diffuse and increased parenchymal density throughout both lung harding. I do not see any definitive PE. But I am awaiting final read. I did compare this to an abdominal CT from May 2023 and I saw none of those lung changes on that film. Patient's CBC shows nonspecific elevation of the white count 11.1 with normal platelets and hemoglobin. Patient's basic metabolic panel shows mildly low potassium at 3.4 and mildly elevated BUN and creatinine. She is hydrated. Glucose is also little bit up at 142. Patient's hepatic function shows no marked abnormalities. Patient's BNP is normal at 64. Patient's troponin is negative at 25. Patient's lactate is mildly elevated at 2.5 which is expected since she was so hypoxic. I reviewed prior records as an outpatient on the patient's electronic medical record. She had what was essentially a normal cardiac echo in January 2021. Patient will be treated as if she has pneumonia. She has a slight rise of her white count. She is coughing and she has changes on her scan. But this could also be inflammatory or other process. I think she does need to come in the hospital with her significant hypoxia. Even though she is tolerating and amazingly well. She will likely need to see pulmonology. I discussed case with hospitalist. Lab Data Attestation: I reviewed the patient's lab results. Labs: Laboratory Results - last 24 hr 11/25/23 22:30 WBC 11.1 H RBC 4.41 Hgb 13.1 Hct 40.3 MCV 91.4 MCH 29.7 MCHC 32.5 RDW Std Deviation 44.3 H RDW Coeff of Rebekah 13.2 Plt Count 332 MPV 10.0 Immature Gran % (Auto) 0.400 Neut % (Auto) 80.3 H Lymph % (Auto) 10.7 L Stokes % (Auto) 5.2 Eos % (Auto) 3.1 Baso % (Auto) 0.3 Absolute Neuts (auto) 8.9 H Absolute Lymphs (auto) 1.18 Nucleated RBC % 0 Sodium 138 Potassium 3.4 L Chloride 106 Carbon Dioxide 25.0 Anion Gap 7 BUN 33 H Creatinine 1.14 H Estim Creat Clear Calc 51.90 Est GFR (MDRD) Af Amer 62 Est GFR (MDRD) Non-Af 51 L BUN/Creatinine Ratio 28.9 H Glucose 142 H Lactic Acid 2.5 H* Calcium 10.1 Total Bilirubin 0.60 AST 52 H ALT 52 Alkaline Phosphatase 62 Troponin I High Sens 25 B-Natriuretic Peptide 64.0 Total Protein 7.4 Albumin 3.3 Globulin 4.1 Albumin/Globulin Ratio 0.8 L Radiography Diagnostic Testing: Clinical Impression(s) from Imaging Studies Chest CTA 11/25/23 23:40 IMPRESSION: 1. Patchy infiltrates involving the lower lobes. Patchy ground glass opacities are seen involving the upper lungs. Differential diagnosis includes pulmonary edema, alveolar damage, ARDS, infectious and inflammatory processes including atypical pneumonia. 2. No PE. [facility] program was used to assist in the detection of abnormal findings. Electronically Signed: Carlos Varma MD at 0:20 EST , EKG Initial EKG: Comments: My independent interpretation of her EKG shows sinus rhythm with slightly tachycardic rate at 107. There is an occasional PAC with compensatory pause. There are diffuse nonspecific ST and T wave changes. No indication of acute ST elevation ID. OK interval, QRS duration and QTc are normal. This EKG is a bit different than 1 I was able to find from 24 December 2020. Management Discussion w/another healthcare provider: Hospitalist Discharge Plan Dx/Rx/DC Orders Clinical Impression: Leukocytosis, Hypoxia, Pneumonia, Acidosis, lactic Disposition Disposition: Acute Care [facility] Discharge Date/Time: 11/26/23 02:00
[2023-11-25 22:54] VITALS: O2SAT 97
[2023-11-25 23:00] VITALS: PULSE 104; RESP 26; O2SAT 96
[2023-11-25] MEDS: Ipratropium/Albuterol Sulfate 3 ML AMPUL.NEB INHALATION (23:01)
[2023-11-25 23:03] LABS: Absolute Lymphocyte Count 1.18 X10^3/uL (0.83-4.51); Absolute Neutrophil Count 8.9 X10^3/uL (2.0-7.7); Basophil# 0.03 X10^3/uL; Basophil% 0.3 % (0-1); Eosinophil# 0.34 X10^3/uL; Eosinophils% 3.1 % (0-5); Hematocrit 40.3 % (37-47); Hemoglobin 13.1 g/dL (12.0-15.0); Lymphocyte # 1.18 X10^3/ul (0.83-4.51); Lymphocyte % 10.7 % (19-41); Mean Corp Hgb Conc 32.5 g/dL (32-36); Mean Corpuscular Hgb 29.7 pg (27.0-32.0); Mean Corpuscular Volume 91.4 fL (81-99); Monocyte# 0.57 X10^3/uL; Monocyte% 5.2 % (0-10); NRBC Flagged by Analyzer 0 % (0-5); Neutrophil % 80.3 % (47-70); Platelet Count 332 K/mm3 (150-450); RBC Distribution Width CV 13.2 % (11.6-14.6); RBC Distribution Width SD 44.3 fl (35.1-43.9); Red Blood Count 4.41 M/mm3 (4.2-5.4); White Blood Count 11.1 K/mm3 (4.4-11.0)
[2023-11-25 23:22] LABS: ALB/GLOB Ratio 0.8 RATIO (0.9-2.4); AST(SGOT) 52 U/L (15-37); Alanine Aminotransfer ALT/SGPT 52 U/L (13-56); Albumin, Serum 3.3 g/dL (3.2-5.0); Alkaline Phosphatase 62 U/L (45-117); Anion Gap 7 (5-15); BUN 33 mg/dL (7-18); BUN/Creat Ratio 28.9 RATIO (10-20); Calcium,Total 10.1 mg/dL (8.5-10.1); Chloride 106 mmol/L (98-107); Creatinine, Serum 1.14 mg/dL (0.55-1.02); EST Glomerular Filtration Rate 51 mL/min (>60); Est Glom Filt Rate - Afr Amer 62 mL/min (>60); Globulin 4.1 g/dL (2.2-4.2); Glucose 142 mg/dL (74-106); Potassium 3.4 mmol/L (3.5-5.1); Protein, Total 7.4 g/dL (6.4-8.2); Sodium Level 138 mmol/L (136-145); Troponin-I HS 25 pg/mL (3.0-54.0)
[2023-11-25 23:39] LABS: Lactic Acid 2.5 mmol/L (0.4-1.9)
--- NOTE | 2023-11-25 23:40 | CT_ITS ---
EXAM: CT ANGIOGRAPHY CHEST WITHOUT AND WITH INTRAVENOUS CONTRAST CLINICAL INDICATION: pe TECHNIQUE: Helically acquired angiography images were obtained of the chest without and with intravenous contrast. CTDIvol = ( 7.69 ) mGy, DLP = ( 260.74 ) mGycm This CT exam was performed using one or more of the following dose reduction techniques: automated exposure control, adjustment of the mA and/or kV according to patient size, and/or use of iterative reconstruction technique. MIP reconstructed images were created and reviewed. CONTRAST: IV 100mL [id number] COMPARISON: No relevant prior studies available. FINDINGS: PULMONARY ARTERIES: Unremarkable. Normal in caliber. No evidence of pulmonary embolism. No PE. AORTA: Unremarkable. No aortic aneurysm or dissection. GREAT VESSELS OF AORTIC ARCH: Unremarkable. Normal in caliber. No evidence of dissection. LUNGS AND PLEURAL SPACES: Patchy infiltrates involving the lower lobes. Patchy ground glass opacities are seen involving the upper lungs. Differential diagnosis includes pulmonary edema, alveolar damage, ARDS, infectious and inflammatory processes including atypical pneumonia. No mass. No pleural effusions or pneumothorax. No airway narrowing or obstruction. HEART: Unremarkable. Heart size is normal. No pericardial effusion. No significant coronary artery calcifications. MEDIASTINUM: Unremarkable. No mediastinal or hilar adenopathy. Esophagus is unremarkable. No hiatal hernia. THYROID: Unremarkable. No thyroid lesions. BONES/JOINTS: Unremarkable. No suspicious lytic or blastic abnormality. KIDNEYS AND URETERS: Incompletely imaged hypodense lesion (exophytic) at the lateral aspect of left kidney measuring [address]/CTA Chest W/WO Contrast IMPRESSION: 1. Patchy infiltrates involving the lower lobes. Patchy ground glass opacities are seen involving the upper lungs. Differential diagnosis includes pulmonary edema, alveolar damage, ARDS, infectious and inflammatory processes including atypical pneumonia. 2. No PE. [facility] program was used to assist in the detection of abnormal findings. Electronically Signed: Carlos Varma MD at 0:20 EST ,
[2023-11-26] VITALS (21 sets, daily range): BP systolic 95–119; BP diastolic 52–81; PULSE 79–110; RESP 20–28; TEMP 36.8–37.7; O2SAT 50–98; BMI 26.8
--- OUTSIDE RECORDS SUMMARY | 2023-11-26 00:07 | XMS RPT_ITS | CCD ---
Author Name Unknown Address [address] [place] [address] Organization [facility] Care Team Providers Care Commercial Litigation Attorney Name Role Phone [facility] Primary Care Provider ANNABEL Harris Attending Unavailable [facility] Primary Care Unavailable Allergies Allergy Classification Reported Allergen(s) Allergy Type Date of Onset Reaction(s) Facility (3 sources) Meperidine Drug Allergy 07-31-2015 Rash [facility] (3 sources) Sulfonamides (Antibiotic) Drug Allergy 07-31-2015 Swelling [facility] Medications Current Medications Medication Drug Class(es) Dates Sig (Normalized) Sig (Original) fluconazole 150 mg oral tablet (1 source) Azole Antifungal Start: 04-24-2023 End: 04-28-2023 fluconazole (Diflucan) 150 MG tablet Take 1 tablet (150 mg) by mouth Every 3 days for 2 doses. 2 tablet 1 04/24/2023 04/28/2023 Active Metoprolol (3 sources) beta-Adrenergic [place] Start: 01-04-2021 METOPROLOL SUCCINATE ER PO Problems Problem Classification Problem Date Documented Da te Episodic/Chronic Abdominal pain (3 sources) Pain in pelvis; Translations: [Pelvic and perineal pain] Onset: 04-19-2023 04-19-2023 Episodic Other screening for suspected conditions (not mental disorders or infectious disease) (3 sources) Patient encounter status; Translations: [Encounter for screening mammogram for malignant neoplasm of breast] Onset: 04-19-2023 04-19-2023 Episodic Results Test Name Value Interpretation Reference Range Facil ity Vital Signs Date Time Vital Sign Value Performing Clinician Rickey grossman 04-19-2023 11:51-0400 Body height 167.6 cm Annabel Miner MD Work Phone: [facility] 04-19-2023 11:51-0400 Body mass index (BMI) [Ratio] 26.79 kg/m2 Annabel Miner MD Work Phone: [facility] 04-19-2023 11:51-0400 Body weight 75.3 kg Annabel Miner MD Work Phone: [facility] 04-19-2023 11:51-0400 Diastolic blood pressure 79 mm[Hg] Annabel Miner MD Work Phone: [facility] 04-19-2023 11:51-0400 Heart rate 69 /min Annabel Miner MD Work Phone: [facility] 04-19-2023 11:51-0400 Systolic blood pressure 137 mm[Hg] Annabel Miner MD Work Phone: [facility] Encounters Encounter Date Encounter Type Care Provider Facility Start: 04-24-2023 Orders Only Annabel Arita Work Phone: [facility] Start: 04-21-2023 Telephone encounter Samantha COLORADO [facility] Clinical Communication Procedures Date Procedure Procedure Detail Performing Clinician Start: 09-05-2022 Mammography Annabel Orta Work Phone: Start: 04-27-2020 Microscopic observat ion [Identifier] in Cervix by Cyto stain Annabel Miner MD Work Phone: Plan of Treatment Date Care Activity Detail Author Start: 04-27-2025 Screening for malign ant neoplasm of cervix [facility] Start: 04-24-2024 End: 04-24-2024 Patient encounter procedure 04/24/2024 10:00 AM EDT Office Visit [facility] [address] [place] [address] [address] [place], [place] [id number] Coty Mcduffie MD [address] [facility], [address] [place] [address] [facility] Start: 09-05-2023 Screening for malign ant neoplasm of breast Mammogram [facility] Start: 07-07-2023 Influenza vaccination Influenz a Vaccine (Season Ended) [facility] Start: 05-23-2023 End: 05-23-2023 Professional / ancillary services management 05/23/2023 11:45 AM EDT Ancillary Procedure [facility] [address] [place] [address] [address] [place] [address] [facility] Start: 04-27-2023 Screening for malign ant neoplasm of cervix Pap Smear [facility] Start: 04-19-2023 End: 06-19-2024 MG Breast - bilateral Screening Bilateral screening mammogram Imaging Routine Encounter for screening mammogram for malignant neoplasm of breast Expected: 04/19/2023, Expires: 06/19/2024 [facility] Payers Date Payer Category Payer Private Health [facility] [id number] 2015-Present [address] [address] [place] [address] Commercial [id number] 2015 Private Health Insurance [id number] Social History Date Type Detail Facility Tobacco smoking status NHIS Never smoked tobacco [facility] Start: 04-19-2023 Alcohol intake Current drinke r of alcohol (finding) [facility] Start: 04-19-2023 History of Social function [facility] Start: 04-19-2023 Tobacco use panel [facility] Start: 1960 Sex Assigned At Not on file [facility] Start: 04-09-2023 End: 04-19-2023 Exposure to SARS-CoV-2 (event) Not sure [facility] Telephone encounter Note 04-24-2023 Telephone Encounter - Loan Marlow MA - 04/24/2023 9:09 AM EDT Note Date & Type Note Facility 04-24-2023 Telephone encounter Note Form atting of this note might be different from the original. Patient notified Dr Miner sent Rx to pharmacy [facility] Note 04-24-2023 Telephone Encounter - Loan Marlow MA - 04/24/2023 9:09 AM EDTTelephone Encounter - Samantha Lawrence LPN - 04/21/2023 11:41 AM EDT Note Date & Type Note Facility 04-24-2023 Miscellaneous Notes Formattin g of this note might be different from the original. Patient notified Dr Miner sent Rx to pharmacy S: Patient spoke with [facility] nurse regarding medication being sent for yeast infection B: Patient states she had an appointment a few days ago and a medication for yeast infection was suppose to be sent in and she called the pharmacy and it is not there. I checked and advised it was not sent and I will send message to provider to send in A: Advised Patient I would send message to provider R: Sent TE to provider documented in this encounter [facility] Telephone encounter Note 04-21-2023 Telephone Encounter - Samantha Lawrence LPN - 04/21/2023 11:41 AM EDT Note Date & Type Note Facility 04-21-2023 Telephone encounter Note Form atting of this note might be different from the original. S: Patient spoke with [facility] nurse regarding medication being sent for yeast infection B: Patient states she had an appointment a few days ago and a medication for yeast infection was suppose to be sent in and she called the pharmacy and it is not there. I checked and advised it was not sent and I will send message to provider to send in A: Advised Patient I would send message to provider R: Sent TE to provider [facility] History of Present illness Narrative 04-19-2023 Annabel Miner MD - 04/19/2023 11:45 AM EDT Note Date & Type Note Facility 04-19-2023 History of Presen t illness Narrative Angely Mancia 04/19/2025 62 y.o. Chief Complaint Patient presents with Annual Exam No LMP recorded. Patient is postmenopausal. Primary Care Physician: [facility] HPI : Angely Mancia is a 62 y.o. female The patient was seen and examined today for her annual exam. No Dyspareunia. Her bowels are regular. There are no voiding complaints. She denies any bloating. She denies vaginal discharge. Diet and exercise reviewed, pap and mammogram guidelines reviewed, self breast exam recommended and reviewed. She denies a family history of DVTs or PE. She also denies a history of migraines with aura, HTN, DM, breast disease. She does not smoke She c/o about a 2 month h/s of right sided pelvic pain. She denies vaginal bleeding, bloating, constipation or early satiety. OB History Para Term AB Living 2 2 2 2 SAB IAB Ectopic Multiple Live Births 2 # Outcome Date GA Lbr Gadiel/2nd Weight Sex Delivery Anes PTL Lv 2 Term M CS-LTranv AMMON 1 Term M CS-LTranv AMMON Past Medical History: Diagnosis Date Colon cancer screening 05/2021 negative cologuard Irregular heart beat toprol Past Surgical History: Procedure Laterality Date SECTION (HISTORICAL) 1996 TUBAL LIGATION Family History Problem Relation Name Age of Onset Heart disease Mother Diabetes Mother Hypertension Mother Parkinsonism Father Social History Socioeconomic History Marital status: Single Spouse name: Not on file Number of children: Not on file Years of education: Not on file Highest education level: Not on file Occupational History Not on file Tobacco Use Smoking status: Never Smokeless tobacco: Never Substance and Sexual Activity Alcohol use: Yes Drug use: No Sexual activity: Not Currently Partners: Male Comment: TL Other Topics Concern Not on file Social History Narrative Not on file Social Determinants of Health Financial Resource Strain: Not on file Food Insecurity: Not on file Transportation Needs: Not on file Physical Activity: Not on file Stress: Not on file Social Connections: Not on file Intimate Partner Violence: Not on file Housing Stability: Not on file MEDICATIONS: Current Outpatient Medications Medication Sig Dispense Refill METOPROLOL SUCCINATE ER PO No current facility-administered medications for this visit. No results found for: COLORU, CLARITYU, GLUCOSEU, BILIRUBINUR, SPECGRAV, BLOODU, PHUR, PROTEINU, LEUKOCYTESUR, NITRITE] ALLERGIES: Allergies as of 04/19/2023 - Reviewed 04/19/2023 Allergen Reaction Noted Sulfa antibiotics Swelling 07/31/2015 Meperidine Rash 07/31/2015 Gynecologic History: No LMP recorded. Patient is postmenopausal. Genetic Qualified Family History of Breast, Ovarian , Colon or Uterine Cancer: No If YES see scanned worksheet. Preventative Health Testing: Date of Last Pap Smear: 2019, normal with negative HPV Date of Last Mammogram: 1 yr ago, normal per pt Date of Last Colonoscopy: scheduled in 2 weeks Date of Last Bone Density: n/a REVIEW OF SYSTEMS: A minimum of an eleven point review of systems was completed. Review Of Systems (11 point): Constitutional: No fever, chills or malaise; No weight change or fatigue Head and Eyes: No vision, Headache, Dizziness or trauma in last 12 months ENT ROS: No hearing, Tinnitis, sinus or taste problems Hematological and Lymphatic ROS:No Lymphoma, Von Willebrand's, Hemophillia or Bleeding History Psych ROS: No Depression, Homicidal thoughts,suicidal thoughts, or anxiety Breast ROS: No prior breast abnormalities or lumps Respiratory ROS: No SOB, Pneumoniae,Cough, or Pulmonary Embolism History Cardiovascular ROS: No Chest Pain with Exertion, Palpitations, Syncope, Edema, Arrhythmia Gastrointestinal ROS: No Indigestion, Heartburn, Nausea, vomiting, Diarrhea, Constipation,or Bowel Changes; No Bloody Stools or melena Genito-Urinary ROS: No Dysuria, Hematuria or Nocturia. No Urinary Incontinence or Vaginal Discharge Musculoskeletal ROS: No Arthralgia, Arthritis,Gout,Osteoporosis or Rheumatism Neurological ROS: No CVA, Migraines, Epilepsy, Seizure Hx, or Limb Weakness Dermatological ROS: No Rash, Itching, Hives, Mole Changes or Cancer PHYSICAL Exam: Constitutional: Vitals: 04/19/23 1151 BP: 137/79 Pulse: 69 Weight: 166 lb (75.3 kg) Height: 5' 6 (1.676 m) SHAREPOINT ADMIN: BREASTS: normal, no masses, tenderness or skin changes. EXTERNAL GENITALIA: normal female structures VAGINA: normal ruggae, no lesions, normal discharge CERVIX: no lesions, no cervical motion tenderness, normal appearance. VAGINA VAULT: normal. Minimal relaxation UTERUS: normal mobility, nontender, normal size, shape and consistency. ADNEXA: normal, non tender no masses URETHRA: normal. nontender BLADDER: non tender. ANUS/PERINEUM: no hemorrhoids, masses or warts noted. NEUROLOGICAL Oriented x 3, no gross motor or sensory deficits noted. PELVIC SUPPORT DEFECTS: Normal support of vagina and or uterus. LUNGS: good effort. NECK: no thyromegaly, supple. ABDOMEN: normoactive bowel sounds, soft, non-tender, non-distended. LYMPH NODES: no lymphadenapathy axillary or inguinal. EXTREMITIES: no edema, clubbing or cyanosis. GENERAL EXAM Pleasant, well developed, well nourished, well groomed. PSYCHIATRIC Normal mood and affect, A&O x3. ASSESSMENT: 62 y.o. Annual No diagnosis found. Chief Complaint Patient presents with Annual Exam PLAN: No follow-ups on file. Repeat Annual every 1 year Annual Mammograms are recommended at age 40 and can prevent advanced breast cancer. Monthly self breast exams are also recommended. Risks and prevention of Breast cancer were discussed. ALL women should be in-taking a total of 1200mg of Calcium and 800IU of Vitamin D daily including diet and supplement, more is not better. Exercise daily to help build strong bones. A Colonoscopy is recommended for women over 50. Screening Lipid panel is recommended every 2 years. Screening DEXA scan should be done q 5 years in postmenopausal women unless risk factors are identified, starting age depends on risk factors. No pap needed after age 65, but does need annual pelvic and breast exams. Routine health maintenance per patients PCP. No orders of the defined types were placed in this encounter. There are no diagnoses linked to this encounter. No follow-ups on file. Mammogram ultrasound documented in this encounter [facility] Evaluation note Note Date & Type Note Facility documented in this encounter [facility] Summary Purpose Family History No Family History Records Found Advance Directives No Advanced Directives Records Found Additional Source Comments Reason for Visit (unrecogniz ed section and content) Reason Onset Date Comments Medication Problem 04/21/2023 Care Teams (unrecognized sec tion and content) Commercial Litigation Attorney Relationship Specialty Start Date End Date [facility] [address] [place] [address] PCP - General 04/11/23 Commercial Litigation Attorney Relationship Specialty Start Date End Date [facility] [address] [place] [address] PCP - General 04/11/23 INFORMATION SOURCE (unrecogn ized section and content) FOR RECORDS PERTAINING TO PATIENTS WHO ARE OR HAVE BEEN ENROLLED IN A CHEMICAL DEPENDENCY/SUBSTANCEABUSE PROGRAM, SOME INFORMATION MAY BE OMITTED. This clinical summary was aggregated from multiple sources. Caution should be exercised in using it in the provision of clinical care. This summary normalizes information from multiple sources, and as a consequence, information in this document may materially change the coding, format and clinical context of patient data. In addition, data may be omitted in some cases. CLINICAL DECISIONS SHOULD BE BASED ON THE PRIMARY CLINICAL RECORDS. [employer] provides no warranty or guarantee of the accuracy or completeness of information in this document.
--- NOTE | 2023-11-26 00:56 | HP.PCM.HOS_ITS ---
[facility] - General General Date of Admission: 11/26/23 Date of Service: 11/26/23 Chief Complaint: Shortness of breath. HPI Narrative SANCHO SHANNON, is a 63 F with a past medical history of being overweight; with BMI of 27.8 this admission, intermittent tachycardia with palpitations; treated with metoprolol, migraine headaches, remote history of tobacco abuse (quit ~35 years ago), history of amaurosis fugax of the right eye, history of virtually normal echocardiogram (01/2021), history of colonic diverticulosis and history of colon cancer who presents to [facility] ER complaining of SOB. Ms. Shannon reports her symptoms began approximately 2 weeks prior to admission with a gradual onset of a dry cough along with JOSEPH that progressed to SOB at rest that acutely worsened over the past 48 hours. She also admits to fatigue but she had attributed it to being tired because of her son's wedding which was on November 25, 2020 because she has been busy with that. She denies recent trauma, surgery, immobilization or history of VTE and she also denies a history of cardiovascular disease with her dose of metoprolol unchanged for the past ~3 years. She denies related fever, chills, chest pain and pleuritic pain with cough or deep breathing and her CT scan of the chest from May 2023 was unremarkable for acute pathologic changes. In the ER her CT scan of the chest revealed evidence of severe bilateral, multifocal pneumonia complicated by clinical evidence of acute hypoxic respiratory failure on Airvo 45L/min @ 49% FiO2 with leukocytosis of 11.1 and lactic acidosis of 2.5 mmol/L present on admission concerning for sepsis and she was then admitted to the PCU for ongoing care for a stay that is expected to be greater than 48 hours. [facility] Medical History Alcohol use Amaurosis fugax of right eye Cardiology follow-up encounter Former smoker History of diverticulitis History of echocardiogram Intermittent palpitations Migraine headache Post-menopausal Wears contact lenses Home Medications aspirin 81 mg tablet,delayed release (Adult Low Dose Aspirin) 81 mg PO DAILY 01/18/21 [History Last Taken Unknown] metoprolol succinate 25 mg tablet,extended release 24 hr 25 mg PO DAILY #90 tabs 07/28/23 [Rx Last Taken Unknown] ascorbic acid (vitamin C) 500 mg tablet,extended release (C Complex) 500 mg PO DAILY 11/25/23 [History Last Taken Unknown] Allergy/AdvReac Type Severity Reaction Status Date / Time Sulfa (Sulfonamide Allergy hand Verified 11/25/23 22:42 Antibiotics) swelling meperidine [From Demerol] AdvReac vein Verified 11/25/23 22:42 irritation Family History Mother blood clots Hypertension Heart disease CHF Colon polyps Father Hypertension Parkinson disease Brother Hypertension Sister Colon polyps Surgical History History of History of left heart catheterization (11/29/01) History of loop recorder (01/26/21) History of tubal ligation Social History Smoking Status: Former smoker alcohol intake: current alcohol intake frequency: holidays/special occasions only ROS ROS Narrative Review of systems: General: Perhaps ironically, she states she feels good overall and cannot believe she is actually sick. Patient denies fevers chills or night sweats. HENT: Denies headache, denies stuffy nose, denies sore throat EYES: Denies changes in vision Resp: Patient admits to dyspnea on exertion that progressed to shortness of breath at rest with nonproductive cough. Cardiac: Denies chest pain, palpitations or heart racing. GI: Denies abdominal pain, denies changes in bowel, Denies nausea or vomiting. : Denies changes in urination Extremity: Denies swelling Musculoskeletal: Patient denies arthralgias and myalgias. Neuro: Denies any numbness/tingling Heme: Denies any bleeding or bruising Skin: Denies rashes Psychiatric: No complaints voiced related to uncontrolled depression or anxiety. Endocrine: No polyuria, polydipsia or polyphagia. The rest of the 14 point ROS was negative except for positives in HPI. Vital Signs Vital Signs Vital Signs: 11/25/23 22:24 11/25/23 22:35 11/25/23 22:35 Temperature 99.4 F H 99.4 F H Temperature Source Oral Oral Pulse Rate 107 H 107 H Respiratory Rate 28 H 28 H Respiratory Effort Short of Breath Respiratory Pattern Gasping Blood Pressure 130/68 H 130/68 H Blood Pressure Mean 88 88 Pulse Ox 70 89 Oxygen Delivery Method Room Air Nasal Cannula Oxygen Flow Rate (L/min) 6 11/25/23 22:54 11/25/23 23:00 11/25/23 23:00 Temperature Temperature Source Pulse Rate 104 H Respiratory Rate 26 H Respiratory Effort Respiratory Pattern Tachypnea Blood Pressure Blood Pressure Mean Pulse Ox 97 96 Oxygen Delivery Method Nasal Cannula Nasal Cannula Oxygen Flow Rate (L/min) 6 6 Weight Weight: 172 lb 2.896 oz Body Mass Index (BMI) 27.8 Physical Exam Const alert, oriented x3, no apparent distress, average body habitus and healthy appearing General Appearance: cooperative HEENT normocephalic, head/scalp atraumatic and hearing grossly normal bilaterally Eyes PERRL and EOMs intact bilaterally Neck no lymphadenopathy and supple Results Lab / Micro Data 11/25/23 22:30 11/25/23 22:30 Labs: Laboratory Results - last 24 hr 11/25/23 22:30: WBC 11.1 H, RBC 4.41, Hgb 13.1, Hct 40.3, MCV 91.4, MCH 29.7, MCHC 32.5, RDW Std Deviation 44.3 H, RDW Coeff of Rebekah 13.2, Plt Count 332, MPV 10.0, Immature Gran % (Auto) 0.400, Neut % (Auto) 80.3 H, Lymph % (Auto) 10.7 L, Karnes % (Auto) 5.2, Eos % (Auto) 3.1, Baso % (Auto) 0.3, Absolute Neuts (auto) 8.9 H, Absolute Lymphs (auto) 1.18, Nucleated RBC % 0, Sodium 138, Potassium 3.4 L, Chloride 106, Carbon Dioxide 25.0, Anion Gap 7, BUN 33 H, Creatinine 1.14 H, Estim Creat Clear Calc 51.90, Est GFR (MDRD) Af Amer 62, Est GFR (MDRD) Non-Af 51 L, BUN/Creatinine Ratio 28.9 H, Glucose 142 H, Lactic Acid 2.5 H*, Calcium 10.1, Total Bilirubin 0.60, AST 52 H, ALT 52, Alkaline Phosphatase 62, Troponin I High Sens 25, B-Natriuretic Peptide 64.0, Total Protein 7.4, Albumin 3.3, Globulin 4.1, Albumin/Globulin Ratio 0.8 L Micro: Microbiology 11/25/23 23:15 Mucosa - Nasopharyngeal SARS-CoV-2, Influenza & RSV (PCR) - Final Imagaing Radiology Impression Chest CTA 11/25/23 23:40 IMPRESSION: 1. Patchy infiltrates involving the lower lobes. Patchy ground glass opacities are seen involving the upper lungs. Differential diagnosis includes pulmonary edema, alveolar damage, ARDS, infectious and inflammatory processes including atypical pneumonia. 2. No PE. AIDOC program was used to assist in the detection of abnormal findings. Electronically Signed: Carlos Varma MD at 0:20 EST , Assessment & Plan Assessment/Plan (1) Sepsis: QUALIFIERS: Sepsis type: sepsis due to unspecified organism Sepsis acute organ dysfunction status: with acute organ dysfunction Severe sepsis acute organ dysfunction type: acute respiratory failure Acute respiratory failure type: with hypoxia Severe sepsis shock status: without septic shock Qualified Code(s): A41.9 - Sepsis, unspecified organism; R65.20 - Severe sepsis without septic shock; J96.01 - Acute respiratory failure with hypoxia (2) Pneumonia: QUALIFIERS: Pneumonia type: due to unspecified organism Laterality: bilateral Lung location: unspecified part of lung Qualified Code(s): J18.9 - Pneumonia, unspecified organism (3) Acidosis, lactic: (4) Acute hypoxic respiratory failure: PLAN: Plan 1. Sepsis due to severe bilateral, multifocal pneumonia evidenced by leukocytos is of 11.1 present on admission, lactic acidosis of 2.5 mmol/L present on admission and severe hypoxia - Admit to monitored bed for treatment under the sepsis protocol. Continue broad-spectrum antibiotics and await culture and sensitivity data. Give Tylenol as needed pain or fever. Give albuterol nebulizers as needed. Finally, due to the severity of the patient's condition we will consult president consumer electronics company on-call to see this patient on rounds in the a.m. for further recommendations with help appreciated in advance. 2. Acute hypoxic respiratory failure requiring Airvo 45L/min @ 49% FiO2 att ributable to #1 - Wean supplemental oxygen with Airvo as tolerated. 3. Overweight; with BMI of 27.8 this admission - Weight loss will be recommended. Check TSH. 4. Intermittent tachycardia with palpitations; treated with metoprolol - Stable. Hold this agent until infection outlined in #1 is neutralized. 5. Migraine headaches - Stable with no complaints of headaches at this time. 6. Remote history of tobacco abuse (quit ~35 years ago) - Noted. 7. History of amaurosis fugax of the right eye - Noted. 8. History of virtually normal echocardiogram (01/2021) - Noted. 9. History of colonic diverticulosis - Stable. 10. History of colon cancer; with negative colonoscopy by Dr. Newberry (05/2023) - Noted. 11. DVT prophylaxis - Lovenox 40 mg sq daily. Total time: Approximately 55 minutes. Update: Patient was rechecked approximately 4 hours after admission with a l actic acidosis of 2.5 mmol/L present on admission now down to 1.2 mmol/L after the initial round of treatment. Her potassium dropped to 3.4 mmol/L and replacement was ordered. Her vital signs have remained stable and she never required pressor support. SENIOR STACK ENGINEER was updated with plan. Sepsis Attestation Sepsis Alert: Yes Sepsis Attestation: Sepsis Ruled Out Date exam was performed: 11/26/23 Time exam was performed: 01:00 Possible Source of Sepsis: Pulmonary Sepsis Organ Dysfunction Criteria Present: Acute Respiratory Failure (New need for BiPAP/CPAP or MV) and Lactic Acid > 2 mmol/L Fluid Resuscitation Fluid resuscitation indicated?: Yes Fluid Resuscitation ordered: 30 ml/kg fluid bolus ordered Amount of fluid ordered: 2 Sepsis Note Date exam was performed: 11/26/23 Time exam was performed: 05:00 Sepsis Attestation: Sepsis re-evaluation was performed Response to fluids: Fluid responsive hypotension Charges/Coding Visit Charges Inpatient E&M: 72662 Init Hosp L3
--- OUTSIDE RECORDS SUMMARY | 2023-11-26 01:15 | XMS RPT_ITS | CCD ---
Author Name Unknown Address [address] [place] [address] Organization [facility] Care Team Providers Care Sdv Pilot/Navigator/Dds Operator Name Role Phone [facility] Primary Care Provider ANNABEL Harris Attending Unavailable [facility] Primary Care Unavailable Allergies Allergy Classification Reported Allergen(s) Allergy Type Date of Onset Reaction(s) Facility (3 sources) Meperidine Drug Allergy 07-31-2015 Rash [facility] (3 sources) Sulfonamides (Antibiotic) Drug Allergy 07-31-2015 Swelling [facility] Medications Current Medications Medication Drug Class(es) Dates [...] 167.6 cm Annabel Miner MD Work Phone: [facility] [employer] 04-19-2023 11:51-0400 Body mass index (BMI) [Ratio] 26.79 kg/m2 Annabel Miner MD Work Phone: [facility] [employer] 04-19-2023 11:51-0400 Body weight 75.3 kg Annabel Miner MD Work Phone: [facility] 04-19-2023 11:51-0400 Diastolic blood pressure 79 mm[Hg] Annabel Miner MD Work Phone: [facility] 04-19-2023 11:51-0400 Heart rate 69 /min Annabel Miner MD Work Phone: [facility] 04-19-2023 11:51-0400 Systolic blood pressure 137 mm[Hg] Annabel Miner MD Work Phone: [facility] Encounters Encounter Date Encounter Type Care Provider Facility Start: 04-24-2023 Orders Only Annabel Arita Work Phone: [facility] Start: 04-21-2023 Telephone encounter Samantha COLORADO [facility] Clinical Communication Procedures Date Procedure Procedure Detail Performing Clinician Start: 09-05-2022 Mammography Annabel Orta Work Phone: Start: 04-27-2020 Microscopic observat ion [Identifier] in Cervix by Cyto stain Annabel Miner MD Work Phone: Plan of Treatment Date Care Activity Detail Author Start: 04-27-2025 Screening for malign ant neoplasm of cervix [facility] Start: 04-24-2024 End: 04-24-2024 Patient encounter procedure 04/24/2024 10:00 AM EDT Office Visit [facility] [address] [place] [address] [address] [place], [place] [address] Coty Mcduffie MD [address] [facility], [address] [place] [address] [facility] Start: 09-05-2023 Screening for malign ant neoplasm of breast Mammogram [facility] Start: 07-07-2023 Influenza vaccination Influenz a Vaccine (Season Ended) [facility] Start: 05-23-2023 End: 05-23-2023 Professional / ancillary services management 05/23/2023 11:45 AM EDT Ancillary Procedure [facility] [address] [place] [address] [address] [place] [address] [facility] Start: 04-27-2023 Screening for malign ant neoplasm of cervix Pap Smear [facility] Start: 04-19-2023 End: 06-19-2024 MG Breast - bilateral Screening Bilateral screening mammogram Imaging Routine Encounter for screening mammogram for malignant neoplasm of breast Expected: 04/19/2023, Expires: 06/19/2024 [facility] Payers Date Payer Category Payer Private Health Insurance [facility] OPT [id number] 2015-Present [address] [address] [place] [address] Commercial [id number] 2015 Private Health Insurance [id number] Social History Date Type Detail Facility Tobacco smoking status NHIS Never smoked tobacco [facility] Start: 04-19-2023 Alcohol intake Current drinke r of alcohol (finding) [facility] Start: 04-19-2023 History of Social function [facility] Start: 04-19-2023 Tobacco use panel [facility] Start: 1960 Sex Assigned At Not on file S [facility] Start: 04-09-2023 End: 04-19-2023 Exposure to SARS-CoV-2 (event) Not sure [facility] Telephone encounter Note 04-24-2023 Telephone Encounter - Loan Marlow MA - 04/24/2023 9:09 AM EDT Note Date & Type Note Facility 04-24-2023 Telephone encounter Note Form atting of this note might be different from the original. Patient notified Dr Miner sent Rx to pharmacy [facility] Note 04-24-2023 Telephone Encounter - Loan Marlow MA - 04/24/2023 9:09 AM EDTTelephone Encounter - Samantha Lawrence LPN - 04/21/2023 11:41 AM EDT Note Date & Type Note Facility 04-24-2023 Miscellaneous Notes Formattin g of this note might be different from the original. Patient notified Dr Miner sent Rx to pharmacy S: Patient spoke with [facility] nurse regarding medication being sent for [...] TE to provider documented in this encounter [facility] Telephone encounter Note 04-21-2023 Telephone Encounter - Samantha Lawrence LPN - 04/21/2023 11:41 AM EDT Note Date & Type Note Facility 04-21-2023 Telephone encounter Note Form atting of this note might be different from the original. S: Patient spoke with [facility] nurse regarding medication being sent for [...] to provider R: Sent TE to provider [facility] History of Present illness Narrative 04-19-2023 Annabel Miner MD - 04/19/2023 11:45 AM EDT Note Date & Type Note Facility 04-19-2023 History of Presen t illness Narrative Angely Mancia 04/19/2025 62 y.o. Chief Complaint Patient presents with Annual Exam No LMP recorded. Patient is postmenopausal. 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 [employer] provides no warranty or guarantee of the accuracy or completeness of information in this document.
[2023-11-26] MEDS: Ceftriaxone 1 GM/50 ML BAG IV ×2 (01:24→20:50)
--- OUTSIDE RECORDS SUMMARY | 2023-11-26 02:01 | XMS RPT_ITS | CCD ---
Author Name Unknown Address [address] [place] [address] Organization [facility] Care Team Providers Care Cinema Operator Name Role Phone [facility] Primary Care Provider ANNABEL Harris Attending Unavailable [facility] Primary Care Unavailable Allergies Allergy Classification Reported Allergen(s) Allergy Type Date of Onset Reaction(s) Facility (3 sources) Meperidine Drug Allergy 07-31-2015 Rash [facility] (3 sources) Sulfonamides (Antibiotic) Drug Allergy 07-31-2015 Swelling [facility] Medications Current Medications Medication Drug Class(es) [...] Annabel Miner MD Work Phone: [facility] [employer] 04-19-2023 11:51-0400 Body mass index (BMI) [Ratio] 26.79 kg/m2 Annabel Miner MD Work Phone: [facility] [employer] 04-19-2023 11:51-0400 Body weight 75.3 kg Annabel Miner MD Work Phone: [facility] 04-19-2023 11:51-0400 Diastolic blood pressure 79 mm[Hg] Annabel Miner MD Work Phone: [facility] 04-19-2023 11:51-0400 Heart rate 69 /min Annabel Miner MD Work Phone: [facility] 04-19-2023 11:51-0400 Systolic blood pressure 137 mm[Hg] Annabel Miner MD Work Phone: [facility] Encounters Encounter Date Encounter Type Care Provider Facility Start: 04-24-2023 Orders Only Annabel Arita Work Phone: [facility] Start: 04-21-2023 Telephone encounter Samantha COLORADO [facility] Clinical Communication Procedures Date Procedure Procedure Detail Performing Clinician Start: 09-05-2022 Mammography Annabel Orta Work Phone: Start: 04-27-2020 Microscopic observat ion [Identifier] in Cervix by Cyto stain Annabel Miner MD Work Phone: Plan of Treatment Date Care Activity Detail Author Start: 04-27-2025 Screening for malign ant neoplasm of cervix [facility] Start: 04-24-2024 End: 04-24-2024 Patient encounter procedure 04/24/2024 10:00 AM EDT Office Visit [facility] [address] [place] [address] [address] [place], [place] [address] Coty Mcduffie MD [address] [facility], [address] [place] [address] [facility] Start: 09-05-2023 Screening for malign ant neoplasm of breast Mammogram [facility] Start: 07-07-2023 Influenza vaccination Influenz a Vaccine (Season Ended) [facility] Start: 05-23-2023 End: 05-23-2023 Professional / ancillary services management 05/23/2023 11:45 AM EDT Ancillary Procedure [facility] [address] [place] [address] [address] [place] [address] [facility] Start: 04-27-2023 Screening for malign ant neoplasm of cervix Pap Smear [facility] Start: 04-19-2023 End: 06-19-2024 MG Breast - bilateral Screening Bilateral screening mammogram Imaging Routine Encounter for screening mammogram for malignant neoplasm of breast Expected: 04/19/2023, Expires: 06/19/2024 [facility] Payers Date Payer Category Payer [facility] Health [facility] [id number] 2015-Present [address] [address] [place] [address] Commercial [id number] 2015 Private Health Insurance [id number] Social History Date Type Detail Facility Tobacco smoking status NHIS Never smoked tobacco [facility] Start: 04-19-2023 Alcohol intake Current drinke r of alcohol (finding) [facility] Start: 04-19-2023 History of Social function [facility] Start: 04-19-2023 Tobacco use panel [facility] Start: 1960 Sex Assigned At Not on file S [facility] Start: 04-09-2023 End: 04-19-2023 Exposure to SARS-CoV-2 (event) Not sure [facility] Telephone encounter Note 04-24-2023 Telephone Encounter - Loan Marlow MA - 04/24/2023 9:09 AM EDT Note Date & Type Note Facility 04-24-2023 Telephone encounter Note Form atting of this note might be different from the original. Patient notified Dr Miner sent Rx to pharmacy [facility] Note 04-24-2023 Telephone Encounter - Loan Marlow MA - 04/24/2023 9:09 AM EDTTelephone Encounter - Samantha Lawrence LPN - 04/21/2023 11:41 AM EDT Note Date & Type Note Facility 04-24-2023 Miscellaneous Notes Formattin g of this note might be different from the original. Patient notified Dr Miner sent Rx to pharmacy S: Patient spoke with [facility] nurse regarding medication being sent for yeast [...] TE to provider documented in this encounter [facility] Telephone encounter Note 04-21-2023 Telephone Encounter - Samantha Lawrence LPN - 04/21/2023 11:41 AM EDT Note Date & Type Note Facility 04-21-2023 Telephone encounter Note Form atting of this note might be different from the original. S: Patient spoke with [facility] nurse regarding medication being sent for yeast [...] to provider R: Sent TE to provider [facility] History of Present illness Narrative 04-19-2023 Annabel Miner MD - 04/19/2023 11:45 AM EDT Note Date & Type Note Facility 04-19-2023 History of Presen t illness Narrative Angely Mancia 04/19[birth year]23 62 y.o. Chief Complaint Patient presents with Annual Exam No LMP recorded. Patient is postmenopausal. Primary Care Physician: [facility] HPI : Angely Mancia is a 62 [...] (75.3 kg) Height: 5' 6 (1.676 m) HAND WASHER: BREASTS: normal, no masses, tenderness or skin [...] Care Teams (unrecognized sec tion and content) Cinema Operator Relationship Specialty Start Date End Date [facility] [address] [place] [address] PCP - General 04/11/23 Cinema Operator Relationship Specialty Start Date End Date [facility] [address] [place] [address] PCP - General 04/11/23 INFORMATION SOURCE (unrecogn [...] BE BASED ON THE PRIMARY CLINICAL RECORDS. [employer] provides no warranty or guarantee of the accuracy or completeness of information in this document.
[2023-11-26] MEDS: Azithromycin 500 MG in Dextrose 5%-Water (250mL Bag) 250 ML 250 MG IV ×2 (02:24→21:38)
[2023-11-26] MEDS: 0.9% Normal Saline (1000mL) 1,000 ML 999 ML IV ×2 (02:26→05:04)
[2023-11-26 02:57] LABS: Reflex Lactate? Y
[2023-11-26 03:31] LABS: Lactic Acid 1.2 mmol/L (0.4-1.9)
[2023-11-26 06:01] LABS: Allen Test Positive; Base Excess -2 mmol/L (-2 to +2); Bicarbonate 23.3 mmol/L (22-26); Blood Gas Specimen Type ART; Comment airvo. 45L 50%; Mode Not entered; O2 Delivery Device HFNC; PO2 82 mmHG (75-100); SITE R Radial; SO2 96 % (95-99); Total Carbon Dioxide 25 mmol/L
[2023-11-26] MEDS: Enoxaparin 40 MG/0.4 ML Syringe SC (06:28)
[2023-11-26] MEDS: Potassium Chloride Oral Tablet 20 MEQ 60 MEQ PO (06:28)
--- NOTE | 2023-11-26 06:40 | RAD_ITS ---
EXAM: XR CHEST, 1 VIEW CLINICAL INDICATION: PNA. TECHNIQUE: Frontal view of the chest. COMPARISON: Chest CTA 11:38 PM November 25, 2023. There were extensive pulmonary opacities most pronounced in the lower lobes. FINDINGS: LUNGS AND PLEURAL SPACES: Hazy moderate opacities most pronounced in the lower lung harding appear similar to casting machine operator helper exam for the chest CTA. Heart margins and hemidiaphragms remain well seen. No pneumothorax. No effusion. HEART: Unremarkable. Cardiac silhouette not enlarged. MEDIASTINUM: Central airways and mediastinal contour are unremarkable. BONES/JOINTS: Mild thoracic spondylosis. No acute fracture. SOFT TISSUES: Unremarkable. TUBES, LINES AND DEVICES: Small battery type device again noted over the left medial thorax. RAD/Chest 1 View (Portable) IMPRESSION: Bilateral moderate pulmonary opacities appear similar to casting machine operator helper exam for prior CTA with the exception of mildly larger or more confluent opacity at the left lateral lung base. Electronically Signed: Joseline Hernandez MD at 8:04 EST ,
--- NOTE | 2023-11-26 06:48 | EX.PCM.CONCC ---
Assessment & Plan Assessment/Plan (1) Acute hypoxic respiratory failure: PLAN: Plan RECOMMENDATIONS: 1. Continue current antibiotics, pending infectious workup. 2. Check MRSA screen, and if positive, add vancomycin. 3. Check BNP. 4. Wean FiO2 to maintain oxygen saturations at or above 90%. 5. Continue appropriate DVT prophylaxis. 6. Encourage incentive spirometer use and mobilize patient as tolerated. IMPRESSIONS: 1. Acute hypoxemic respiratory failure Clinical concern for underlying bilateral pneumonia. The patient has no pre-existing lung conditions and does not utilize supplemental oxygen at her baseline. For now, it is reasonable to continue current antibiotic regimen, pending infectious workup. Continue heated high flow oxygen and wean FiO2 to maintain saturations at or above 90%. Will check MRSA screen and BNP. If MRSA screen is positive, will add vancomycin to antibiotic coverage. Otherwise, continue current supportive care. 2. History of palpitations/tachycardia/history of migraine headaches/remote tobacco abuse history Complicates care, management, recovery and prognosis. Continue current medical management and supportive care as noted above. This note was generated with [employer] dictation software. It may contain incorrect words, spelling, and punctuation that were not noted in checking the note before signing. HPI Consult Data Date of Consult: 11/26/23 HPI Narrative Reason for Consultation: Acute hypoxemic respiratory failure HPI Narrative: The patient is a 63-year-old female, with a history as outlined below, who presented to the emergency department on November 26 with shortness of breath. The patient does have a remote smoking history along with intermittent palpitations and history of migraines. 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 She denied any recent known sick contact exposure. She does not utilize supplemental oxygen at her baseline. She has no pre-existing lung conditions. On presentation to the emergency department, the patient was noted to have a temperature of 99.4 ?F. She was mildly tachycardic and tachypneic. However, the patient was hemodynamically stable. Initial laboratory evaluation revealed a white blood cell count of 11,000. Initial ABG demonstrated a pH of 7.4 with a pCO2 of 38 and pO2 of 82. Chemistry profile was notable for a potassium of 3.4 and creatinine of 1.14. Lactate was elevated at 2.5. CTA chest demonstrated bilateral groundglass opacities, most pronounced in the bilateral lower lobes. COVID, influenza and RSV PCR was negative. Strep and urine Legionella antigens were negative. The patient was initiated on antimicrobials and supplemental oxygen. She was subsequently admitted to the hospital for further management. [facility] Medical History Alcohol use Amaurosis fugax of right eye Cardiology follow-up encounter Former smoker History of diverticulitis History of echocardiogram Intermittent palpitations Migraine headache Post-menopausal Wears contact lenses Home Medications aspirin 81 mg tablet,delayed release (Adult Low Dose Aspirin) 81 mg PO DAILY 01/18/21 [History Last Taken Unknown] metoprolol succinate 25 mg tablet,extended release 24 hr 25 mg PO DAILY #90 tabs 07/28/23 [Rx Last Taken Unknown] ascorbic acid (vitamin C) 500 mg tablet,extended release (C Complex) 500 mg PO DAILY 11/25/23 [History Last Taken Unknown] Allergy/AdvReac Type Severity Reaction Status Date / Time Sulfa (Sulfonamide Allergy hand Verified 11/25/23 22:42 Antibiotics) swelling meperidine [From Demerol] AdvReac vein Verified 11/25/23 22:42 irritation Family History Mother blood clots Hypertension Heart disease CHF Colon polyps Father Hypertension Parkinson disease Brother Hypertension Sister Colon polyps Surgical History History of History of left heart catheterization (11/29/01) History of loop recorder (01/26/21) History of tubal ligation Social History Smoking Status: Former smoker alcohol intake: current alcohol intake frequency: holidays/special occasions only ROS ROS Narrative 10 systems were reviewed with pertinent positives as noted in the HPI above. Physical Exam Const alert and no apparent distress General Appearance: cooperative HEENT normocephalic, head/scalp atraumatic and moist oral mucous membranes Eyes PERRL, EOMs intact bilaterally and conjunctivae normal Neck supple General: trachea midline Chest inspection of chest normal Resp normal respiratory effort Resp Narrative: Mild basilar rales Cardio regular rate and regular rhythm GI normal to inspection, nondistended, normoactive bowel sounds Extremity no clubbing, cyanosis or edema Skin no rashes or lesions noted Neuro oriented x3, CN's II-XII intact bilaterally and moves all extremities Psych cooperative and affect normal Lab / Micro Data 11/25/23 22:30 11/25/23 22:30 Labs: Laboratory Results - last 24 hr 11/25/23 22:30: WBC 11.1 H, RBC 4.41, Hgb 13.1, Hct 40.3, MCV 91.4, MCH 29.7, MCHC 32.5, RDW Std Deviation 44.3 H, RDW Coeff of Rebekah 13.2, Plt Count 332, MPV 10.0, Immature Gran % (Auto) 0.400, Neut % (Auto) 80.3 H, Lymph % (Auto) 10.7 L, [place] % (Auto) 5.2, Eos % (Auto) 3.1, Baso % (Auto) 0.3, Absolute Neuts (auto) 8.9 H, Absolute Lymphs (auto) 1.18, Nucleated RBC % 0, Sodium 138, Potassium 3.4 L, Chloride 106, Carbon Dioxide 25.0, Anion Gap 7, BUN 33 H, Creatinine 1.14 H, Estim Creat Clear Calc 51.90, Est GFR (MDRD) Af Amer 62, Est GFR (MDRD) Non-Af 51 L, BUN/Creatinine Ratio 28.9 H, Glucose 142 H, Lactic Acid 2.5 H*, Calcium 10.1, Total Bilirubin 0.60, AST 52 H, ALT 52, Alkaline Phosphatase 62, Troponin I High Sens 25, B-Natriuretic Peptide 64.0, Total Protein 7.4, Albumin 3.3, Globulin 4.1, Albumin/Globulin Ratio 0.8 L 11/26/23 02:50: Lactic Acid 1.2 Micro: Microbiology 11/26/23 02:30 Urine, Random Legionella Antigen - Final 11/26/23 02:30 Urine, Random Streptococcus pneumoniae Antigen (M - Final 11/25/23 23:15 Mucosa - Nasopharyngeal SARS-CoV-2, Influenza & RSV (PCR) - Final ABG Data ABG results: ABG 11/26/23 05:58 Specimen Type ART Sample Site R Radial pH 7.40 Bicarbonate Actual 23.3 Total CO2 25 Base Excess -2 O2 Saturation 96 O2 % 50.0 ABG pCO2 38.0 ABG pO2 82 Marcos Test Positive O2 Delivery Device HFNC Vent Mode Not entered Clinical Comments airvo. 45L 50% Imagaing Radiology Impression Chest CTA 11/25/23 23:40 IMPRESSION: 1. Patchy infiltrates involving the lower lobes. Patchy ground glass opacities are seen involving the upper lungs. Differential diagnosis includes pulmonary edema, alveolar damage, ARDS, infectious and inflammatory processes including atypical pneumonia. 2. No PE. AIDOC program was used to assist in the detection of abnormal findings. Electronically Signed: Carlos Varma MD at 0:20 EST , Charges/Coding Visit Charges Inpatient E&M: 93538 Init Hosp L3
[2023-11-26 07:56] LABS: BNP,B-Type NATRIURETIC PEPTIDE 107.3 pg/mL (0-100)
--- NOTE | 2023-11-26 08:04 | PCM.HOSP.N ---
Hospitalist Note SANCHO SHANNON, is a 63 F with a past medical history of being overweight; with BMI of 27.8 this admission, intermittent tachycardia with palpitations; treated with metoprolol, migraine headaches, remote history of tobacco abuse (quit ~35 years ago), history of amaurosis fugax of the right eye, history of virtually normal echocardiogram (01/2021), history of colonic diverticulosis and history of colon cancer who presents to [facility] ER complaining of SOB. Symptoms began 2 weeks prior to admission that acutely worsened over [address] scan with severe bilateral multifocal pneumonia and patient found to have acute hypoxic respiratory failure presently on Airvo. Infectious workup pending, patient on Rocephin and azithromycin, pulmonology consulted. MRSA screen negative, continue to wean O2 as tolerated. Continue Mucinex. A.m. chest x-ray redemonstrated pulmonary opacities. Patient evaluated at bedside and still on Airvo but reports she is feeling better than when she came in, coughing but not producing sputum. Will continue current management and monitor closely. Pulm following
[2023-11-26] MEDS: guaiFENesin 1,200 MG Tablet 1200 MG PO ×2 (09:09→20:52)
[2023-11-26] MEDS: Aspirin E.C. 81 MG Tablet PO (09:09)
[2023-11-26] MEDS: Ascorbic Acid 500 MG Tablet 1000 MG PO ×2 (09:09→16:30)
[2023-11-26] MEDS: Zinc Sulfate 50 mg zinc (220 mg) ORAL capsule PO (09:10)
[2023-11-26] MEDS: Cholecalciferol (Vit D3) 125 MCG CAPSULE (5,000 UNITS) PO (09:10)
[2023-11-26 09:30] LABS: M R Staph aureus DNA By PCR Negative (Negative); Probe Check PASS; Specimen Processing Control PASS
[2023-11-26] MEDS: Acetaminophen 325 MG Tablet 650 MG PO (20:55)
[2023-11-27] VITALS (10 sets, daily range): BP systolic 102–111; BP diastolic 55–65; PULSE 76–132; RESP 16–24; TEMP 36.7–37.7; O2SAT 93–98
--- NOTE | 2023-11-27 04:14 | CPS ---
Pt was proning herself. spo2 shot up to 100%
[2023-11-27] MEDS: Enoxaparin 40 MG/0.4 ML Syringe SC (05:01)
[2023-11-27 06:30] LABS: Absolute Lymphocyte Count 1.35 X10^3/uL (0.83-4.51); Basophil# 0.03 X10^3/uL; Basophil% 0.3 % (0-1); Eosinophil# 0.17 X10^3/uL; Eosinophils% 1.8 % (0-5); Hematocrit 35.4 % (37-47); Hemoglobin 11.3 g/dL (12.0-15.0); Lymphocyte # 1.35 X10^3/ul (0.83-4.51); Lymphocyte % 14.3 % (19-41); Mean Corp Hgb Conc 31.9 g/dL (32-36); Mean Corpuscular Hgb 29.3 pg (27.0-32.0); Mean Corpuscular Volume 91.7 fL (81-99); Mean Platelet Vol. 10.2 fl (6.2-12.0); Monocyte# 0.89 X10^3/uL; Monocyte% 9.4 % (0-10); NRBC Flagged by Analyzer 0 % (0-5); Neutrophil # 6.95 X10^3/uL (2.7-7.7); Neutrophil % 73.8 % (47-70); Platelet Count 282 K/mm3 (150-450); RBC Distribution Width CV 13.2 % (11.6-14.6); Red Blood Count 3.86 M/mm3 (4.2-5.4); White Blood Count 9.4 K/mm3 (4.4-11.0)
[2023-11-27 06:56] LABS: Anion Gap 5 (5-15); BUN 10 mg/dL (7-18); BUN/Creat Ratio 19.8 RATIO (10-20); Calcium,Total 8.5 mg/dL (8.5-10.1); Chloride 111 mmol/L (98-107); EST Glomerular Filtration Rate 130 mL/min (>60); Est Glom Filt Rate - Afr Amer 157 mL/min (>60); Estimated Creatinine Clearance 72.71 ml/min; Glucose 98 mg/dL (74-106); Potassium 3.8 mmol/L (3.5-5.1); Sodium Level 141 mmol/L (136-145)
--- NOTE | 2023-11-27 08:22 | PN.CC_ITS ---
Assessment & Plan Assessment/Plan (1) Acute hypoxic respiratory failure: PLAN: Plan RECOMMENDATIONS: 1. Broaden antibiotics given tenuous respiratory status. 2. Wean FiO2 to maintain oxygen saturations at or above 90%. 3. Continue appropriate DVT prophylaxis. 4. Encourage incentive spirometer use and mobilize patient as tolerated. IMPRESSIONS: 1. Acute hypoxemic respiratory failure Clinical concern for underlying bilateral pneumonia. The patient has no pre- existing lung conditions and does not utilize supplemental oxygen at her baseline. Given her tenuous respiratory status, the patient was placed on empiric broad-spectrum antimicrobials. Continue heated high flow oxygen and wean FiO2 for saturations greater than 90%. Encourage incentive spirometer use and mobilize patient as tolerated. 2. History of palpitations/tachycardia/history of migraine headaches/remote tobacco abuse history Complicates care, management, recovery and prognosis. Continue current medical management and supportive care as noted above. This note was generated with [employer] dictation software. It may contain incorrect words, spelling, and punctuation that were not noted in checking the note before signing. Subjective Subjective The patient was seen and examined at the bedside this morning. Events from the last 24 hours have been reviewed. The patient is currently afebrile, hemodynamically stable and maintaining appropriate oxygen saturations on heated high flow oxygen with an FiO2 requirement of 55% and flow rate of 45 L/min. The patient's FiO2 requirement had increased overnight to 70%. MRSA screen was negative yesterday. Objective Data Objective Data The patient's most recent lab work, culture data and imaging studies have all been personally reviewed. Strep and urine Legionella antigens were negative. COVID, influenza and RSV PCR's were negative. Vital Signs: Vital Signs Temp Pulse Resp BP Pulse Ox O2 Del Method O2 Flow Rate 99.1 F 83 18 111/57 L 98 Airvo 45 11/27/23 03:00 11/27/23 03:00 11/27/23 03:00 11/27/23 03:00 11/27/23 03:35 11/27/23 03:00 11/27/23 03:00 FiO2 55 11/27/23 03:35 Oxygen Flow Rate (L/min) 45 Oxygen Delivery Method Airvo Weight: 166 lb Body Mass Index (BMI) 26.8 Intake & Output: Intake and Output for Last 24 Hours 11/25/23 11/26/23 11/27/23 23:59 23:59 23:59 Intake Total 3850.0 / 3850.0 Output Total 1999 Balance 1850.0 / 1850.0 Lab / Micro Data Attestation: I reviewed the patient's lab results. 11/27/23 06:00 11/27/23 06:00 Labs: Laboratory Results - last 24 hr 11/26/23 08:00: MRSA (PCR) Negative 11/27/23 06:00: WBC 9.4, RBC 3.86 L, Hgb 11.3 L, Hct 35.4 L, MCV 91.7, MCH 29.3, MCHC 31.9 L, RDW Std Deviation 44.0 H, RDW Coeff of Rebekah 13.2, Plt Count 282, MPV 10.2, Immature Gran % (Auto) 0.400, Neut % (Auto) 73.8 H, Lymph % (Auto) 14.3 L, [place]cock % (Auto) 9.4, Eos % (Auto) 1.8, Baso % (Auto) 0.3, Absolute Neuts (auto) 7.0, Absolute Lymphs (auto) 1.35, Nucleated RBC % 0, Sodium 141, Potassium 3.8, Chloride 111 H, Carbon Dioxide 25.0, Anion Gap 5, BUN 10, Creatinine 0.50 L, Estim Creat Clear Calc 72.71, Est GFR (MDRD) Af Amer 157, Est GFR (MDRD) Non-Af 130, BUN/Creatinine Ratio 19.8, Glucose 98, Calcium 8.5 Micro: Microbiology 11/26/23 02:30 Urine, Random Legionella Antigen - Final 11/26/23 02:30 Urine, Random Streptococcus pneumoniae Antigen (M - Final 11/25/23 23:15 Mucosa - Nasopharyngeal SARS-CoV-2, Influenza & RSV (PCR) - Final Physical Exam Const alert and no apparent distress Constitutional Narrative: Resting comfortably in bed. General Appearance: cooperative HEENT normocephalic, head/scalp atraumatic and moist oral mucous membranes Eyes PERRL, EOMs intact bilaterally and conjunctivae normal Neck supple General: trachea midline Chest inspection of chest normal Resp normal respiratory effort and no use of accessory muscles Resp Narrative: Mild basilar rales Effort and Inspection: able to speak in complete sentences Cardio regular rate and regular rhythm GI normal to inspection, nondistended, normoactive bowel sounds Extremity no clubbing, cyanosis or edema Skin no rashes or lesions noted Neuro oriented x3, CN's II-XII intact bilaterally and moves all extremities Psych cooperative and affect normal Charges/Coding Visit Charges Inpatient E&M: 69245 Subs Hosp L2
--- NOTE | 2023-11-27 09:28 | PN.HOSP_ITS ---
Reason for Visit Reason for Visit: Diagnoses Sepsis, unspecified organism (11/26/23) Acidosis, unspecified (11/26/23) Pneumonia, unspecified organism (11/26/23) Acute respiratory failure with hypoxia (11/26/23) Other abnormalities of breathing (11/26/23) Severe sepsis without septic shock (11/26/23) Objective Data Objective Data Vital Signs: Vital Signs Temp Pulse Resp BP Pulse Ox O2 Del Method O2 Flow Rate 99.1 F 83 18 111/57 L 98 Airvo 45 11/27/23 03:00 11/27/23 03:00 11/27/23 03:00 11/27/23 03:00 11/27/23 03:35 11/27/23 03:00 11/27/23 03:00 FiO2 55 11/27/23 03:35 Oxygen Flow Rate (L/min) 45 Oxygen Delivery Method Airvo Weight: 166 lb Body Mass Index (BMI) 26.8 Intake & Output: Intake and Output for Last 24 Hours 11/25/23 11/26/23 11/27/23 23:59 23:59 23:59 Intake Total 3850.0 / 3850.0 Output Total 1999 / 1999 Balance 1850.0 / 1850.0 Lab / Micro Data 11/27/23 06:00 11/27/23 06:00 Labs: Laboratory Results - last 24 hr 11/26/23 08:00: MRSA (PCR) Negative 11/27/23 06:00: WBC 9.4, RBC 3.86 L, Hgb 11.3 L, Hct 35.4 L, MCV 91.7, MCH 29.3, MCHC 31.9 L, RDW Std Deviation 44.0 H, RDW Coeff of Rebekah 13.2, Plt Count 282, MPV 10.2, Immature Gran % (Auto) 0.400, Neut % (Auto) 73.8 H, Lymph % (Auto) 14.3 L, [place] % (Auto) 9.4, Eos % (Auto) 1.8, Baso % (Auto) 0.3, Absolute Neuts (auto) 7.0, Absolute Lymphs (auto) 1.35, Nucleated RBC % 0, Sodium 141, Potassium 3.8, Chloride 111 H, Carbon Dioxide 25.0, Anion Gap 5, BUN 10, Creatinine 0.50 L, Estim Creat Clear Calc 72.71, Est GFR (MDRD) Af Amer 157, Est GFR (MDRD) Non-Af 130, BUN/Creatinine Ratio 19.8, Glucose 98, Calcium 8.5 Micro: Microbiology 11/26/23 02:30 Urine, Random Legionella Antigen - Final 11/26/23 02:30 Urine, Random Streptococcus pneumoniae Antigen (M - Final 11/25/23 23:15 Mucosa - Nasopharyngeal SARS-CoV-2, Influenza & RSV (PCR) - Final Physical Exam Narrative Seen and examined. Patient is still short of breath. On 45% FiO2. Denies chest pain/chest congestion/chest tightness. Physical exam General: Alert, Oriented x3, Cooperative HEENT: Atraumatic, PERRLA, EOMI, Normocephalic Oral: No Gingival or Mucosal Lesions/ Ulcerations Neck: Supple, No JVD, Negative Carotid Bruits Lungs: Air entry diminished in bilateral lung bases. Bilateral coarse crepitations/wheezing. On Airvo Cardiovascular: Regular rate, Regular Rhythm, Normal S1, Normal S2, No murmurs Abdomen: Bowel Sounds Present, Soft, Non Tender, Non-Distended : No renal angle tenderness. No suprapubic tenderness. Extremities: No edema, Capillary Refill Less than 3 Seconds Skin: No rashes, No breakdown Musculoskeletal: No Tenderness to Palpation of Joints or Extremities Neurological: Cranial nerves II-XII grossly intact, DTR 2+/4. No acute focal neurological deficit. Psych/Mental Status: Flat affect. Assessment & Plan Assessment/Plan (1) Sepsis: QUALIFIERS: Acute respiratory failure type: with hypoxia Sepsis acute organ dysfunction status: with acute organ dysfunction Sepsis type: sepsis due to unspecified organism Severe sepsis acute organ dysfunction type: acute respiratory failure Severe sepsis shock status: without septic shock Qualified Code(s): A41.9 - Sepsis, unspecified organism; R65.20 - Severe sepsis without septic shock; J96.01 - Acute respiratory failure with hypoxia (2) Pneumonia: QUALIFIERS: Laterality: bilateral Lung location: unspecified part of lung Pneumonia type: due to unspecified organism Qualified Code(s): J18.9 - Pneumonia, unspecified organism (3) Acidosis, lactic: (4) Acute hypoxic respiratory failure: PLAN: Plan 1. Sepsis due to severe bilateral, multifocal pneumonia evidenced by leukocytosis of 11.1 present on admission, lactic acidosis of 2.5 mmol/L present on admission and severe hypoxia - Admit to monitored bed for treatment under the sepsis protocol. Continue broad-spectrum antibiotics and await culture and sensitivity data. Give Tylenol as needed pain or fever. Give albuterol nebulizers as needed. Finally, due to the severity of the patient's condition we will consult sales order coordinator on-call to see this patient on rounds in the a.m. for further recommendations with help appreciated in advance. 11/27: COVID influenza and RSV PCR are negative. Strep and Legionella antigens are negative. Tmax 99. 9 Fahrenheit 2. Acute hypoxic respiratory failure requiring Airvo 45L/min @ 49% FiO2 attributable to #1 - Wean supplemental oxygen with Airvo as tolerated. 11/27: Overnight patient FiO2 requirement went up,70% but currently 55%. 3. Overweight; with BMI of 27.8 this admission - Weight loss will be recommended. Check TSH. 4. Intermittent tachycardia with palpitations; treated with metoprolol - Stable. Hold this agent until infection outlined in #1 is neutralized. 5. Migraine headaches - Stable with no complaints of headaches at this time. 6. Remote history of tobacco abuse (quit ~35 years ago) - Noted. 7. History of amaurosis fugax of the right eye - Noted. 8. History of virtually normal echocardiogram (01/2021) - Noted. 9. History of colonic diverticulosis - Stable. 10. History of colon cancer; with negative colonoscopy by Dr. Newberry (05/2023) - Noted. 11. DVT prophylaxis - Lovenox 40 mg sq daily. Charges/Coding Visit Charges Inpatient E&M: 61645 Subs Hosp L2
[2023-11-27] MEDS: Aspirin E.C. 81 MG Tablet PO (10:24)
[2023-11-27] MEDS: Cholecalciferol (Vit D3) 125 MCG CAPSULE (5,000 UNITS) PO (10:24)
[2023-11-27] MEDS: Zinc Sulfate 50 mg zinc (220 mg) ORAL capsule PO (10:24)
[2023-11-27] MEDS: Ascorbic Acid 500 MG Tablet 1000 MG PO ×2 (10:24→17:54)
[2023-11-27] MEDS: guaiFENesin 1,200 MG Tablet 1200 MG PO ×2 (10:24→21:53)
[2023-11-27] MEDS: Acetaminophen 325 MG Tablet 650 MG PO ×2 (10:33→22:00)
[2023-11-27] MEDS: Piperacil/Tazobactam 3.375 GM in 0.9% Normal Saline (50mL MB+) 50 ML IV ×3 (10:39→21:54)
--- NOTE | 2023-11-27 11:25 | CASEMGMT ---
RN CM Face to Face with patient for initial transition planning/care coordination assessment. RN CM introduced self and role at [facility]. Patient lying in bed, alert and oriented. Patient willing to participate in assessment and is able to answer all questions appropriately. Care providers, pharmacy, and demographics verified. Patient wishes to discharge home, denies need for home health at this time. Patient states she has no further needs or concerns at this time. CM to follow for discharge planning needs that may arise. PCP: Alecia Specialists: Glenys, certified medical records coder; Preferred Pharmacy: [facility] Insurance: [employer], [employer] Prescription Benefit: yes Living Will/HPOA: yes, Colleen Ramos [phone] LNOK: son, sister Living Arrangements: Patient lives alone in a first floor apartment with no steps to enter. Patient states she is independent at home. Transportation: self, sister DME/HHC: Patient denies DME in the home. No previous HHC or SNF. Will monitor for home oxygen, prefers [employer]. Disposition Plan: Patient to discharge home with family support and follow-up plans in place. Stephanie WILCOX, RN, CM
[2023-11-27] MEDS: Metoprolol(XL)Succ 25 MG Tablet PO (12:36)
--- NOTE | 2023-11-27 15:11 | CHAPLAIN ---
Type of Pastoral Visit _x__ Initial Visit ___ Follow-up Visit ___ On-call Visit ___ General Patient Visit ___ Spiritual Assessment ___ Family Conference ___ Bereavement ___ Rapid Response ___ Code Blue ___ Other (describe below) Pastoral Care Referral From __x_ Patient ___ Family ___ Nurse ___ Physician ___ Demo Event Specialist ___ Music Theory Professor ___ Other (describe below) Sacrament/Intervention _x__ Active listening ___ Anointing ___ Presybeterian ___ Bereavement ___ Communion ___ Lilly exploration ___ ___ Life review _x__ Prayer ___ Reconciliation _x__ Sacrament of Sick ___ Supportive presence ___ Wedding ___ Other (describe below) Pastoral Comments patient states that she likes in his heosptial from past experiences; pt is on breathing bi pap and says that she would just like a prayer at tis time
[2023-11-27] MEDS: Ensure Plus High Protein 120 ML LIQUID PO (17:54)
[2023-11-28] VITALS (28 sets, daily range): BP systolic 85–105; BP diastolic 42–77; PULSE 76–165; RESP 14–31; TEMP 36.1–37.2; O2SAT 93–99
[2023-11-28] MEDS: Metoprolol Tartrate 5 MG/5 ML Vial IV ×2 (02:40→05:09)
[2023-11-28] MEDS: 0.9% Normal Saline (500mL Bag) 500 ML 999 ML IV (03:30)
[2023-11-28] MEDS: Piperacil/Tazobactam 3.375 GM in 0.9% Normal Saline (50mL MB+) 50 ML IV ×3 (05:09→20:54)
[2023-11-28] MEDS: Enoxaparin 40 MG/0.4 ML Syringe SC (05:09)
[2023-11-28] MEDS: Diltiazem 125 MG in Dextrose 5%-Water (100mL Bag) 100 ML CONT INF (05:50)
[2023-11-28 07:23] LABS: Absolute Lymphocyte Count 1.88 X10^3/uL (0.83-4.51); Absolute Neutrophil Count 6.6 X10^3/uL (2.0-7.7); Basophil# 0.07 X10^3/uL; Basophil% 0.7 % (0-1); Eosinophil# 0.37 X10^3/uL; Eosinophils% 3.8 % (0-5); Hematocrit 34.8 % (37-47); Hemoglobin 11.3 g/dL (12.0-15.0); Lymphocyte # 1.88 X10^3/ul (0.83-4.51); Lymphocyte % 19.1 % (19-41); Mean Corp Hgb Conc 32.5 g/dL (32-36); Mean Corpuscular Hgb 29.6 pg (27.0-32.0); Mean Corpuscular Volume 91.1 fL (81-99); Mean Platelet Vol. 9.8 fl (6.2-12.0); Monocyte# 0.86 X10^3/uL; Monocyte% 8.7 % (0-10); NRBC Flagged by Analyzer 0 % (0-5); Neutrophil # 6.63 X10^3/uL (2.7-7.7); Neutrophil % 67.3 % (47-70); Platelet Count 306 K/mm3 (150-450); RBC Distribution Width CV 13.1 % (11.6-14.6); RBC Distribution Width SD 43.2 fl (35.1-43.9); Red Blood Count 3.82 M/mm3 (4.2-5.4); White Blood Count 9.9 K/mm3 (4.4-11.0)
[2023-11-28] MEDS: Ascorbic Acid 500 MG Tablet 1000 MG PO ×2 (07:51→18:01)
[2023-11-28] MEDS: Cholecalciferol (Vit D3) 125 MCG CAPSULE (5,000 UNITS) PO (07:51)
[2023-11-28] MEDS: Aspirin E.C. 81 MG Tablet PO (07:51)
[2023-11-28] MEDS: Zinc Sulfate 50 mg zinc (220 mg) ORAL capsule PO (07:52)
[2023-11-28] MEDS: guaiFENesin 1,200 MG Tablet 1200 MG PO ×2 (07:52→20:54)
[2023-11-28 07:56] LABS: Anion Gap 4 (5-15); BUN 12 mg/dL (7-18); Calcium,Total 8.9 mg/dL (8.5-10.1); Chloride 110 mmol/L (98-107); EST Glomerular Filtration Rate 132 mL/min (>60); Est Glom Filt Rate - Afr Amer 159 mL/min (>60); Estimated Creatinine Clearance 72.71 ml/min; Glucose 102 mg/dL (74-106); Potassium 3.5 mmol/L (3.5-5.1); Sodium Level 140 mmol/L (136-145)
[2023-11-28] MEDS: 0.9% Saline Lock 10 ML Syringe IV (08:07)
--- NOTE | 2023-11-28 08:14 | NURSING ---
Hand off and report given to J. See RN
[2023-11-28] MEDS: Metoprolol(XL)Succ 25 MG Tablet PO (12:00)
[2023-11-28 13:01] LABS: Magnesium 2.1 mg/dL (1.6-2.6)
[2023-11-28] MEDS: Potassium Chloride Oral Tablet 20 MEQ 40 MEQ PO (13:03)
--- NOTE | 2023-11-28 16:42 | PCM.PN.HOSP ---
Reason for Visit Reason for Visit: Diagnoses Sepsis, unspecified organism (11/26/23) Acidosis, unspecified (11/26/23) Pneumonia, unspecified organism (11/26/23) Acute respiratory failure with hypoxia (11/26/23) Other abnormalities of breathing (11/26/23) Severe sepsis without septic shock (11/26/23) Objective Data Objective Data Vital Signs: Vital Signs Temp Pulse Resp BP Pulse Ox O2 Del Method O2 Flow Rate 97 F L 84 19 H 105/55 L 98 Airvo 40 11/28/23 12:00 11/28/23 14:41 11/28/23 12:00 11/28/23 14:41 11/28/23 13:17 11/28/23 13:05 11/28/23 13:05 FiO2 40 11/28/23 13:17 Oxygen Flow Rate (L/min) 40 Oxygen Delivery Method Airvo Weight: 166 lb 0.129 oz Body Mass Index (BMI) 26.8 Intake & Output: Intake and Output for Last 24 Hours 11/26/23 11/27/23 11/28/23 23:59 23:59 23:59 Intake Total 3850.0 / 3850.0 1300 / 1300 1118.33 / 1118.33 Output Total 1999 / 1999 Balance 1850.0 / 1850.0 1300 / 1300 1118.33 / 1118.33 Lab / Micro Data 11/28/23 06:55 11/28/23 06:55 Labs: Laboratory Results - last 24 hr 11/28/23 06:55: WBC 9.9, RBC 3.82 L, Hgb 11.3 L, Hct 34.8 L, MCV 91.1, MCH 29.6, MCHC 32.5, RDW Std Deviation 43.2, RDW Coeff of Rebekah 13.1, Plt Count 306, MPV 9.8, Immature Gran % (Auto) 0.400, Neut % (Auto) 67.3, Lymph % (Auto) 19.1, [place] % (Auto) 8.7, Eos % (Auto) 3.8, Baso % (Auto) 0.7, Absolute Neuts (auto) 6.6, Absolute Lymphs (auto) 1.88, Nucleated RBC % 0, Sodium 140, Potassium 3.5, Chloride 110 H, Carbon Dioxide 26.0, Anion Gap 4 L, BUN 12, Creatinine 0.50 L, Estim Creat Clear Calc 72.71, Est GFR (MDRD) Af Amer 159, Est GFR (MDRD) Non-Af 132, BUN/Creatinine Ratio 24.0 H, Glucose 102, Calcium 8.9, Phosphorus 3.0, Magnesium 2.1 Micro: Microbiology 11/25/23 23:00 Blood Culture (Wb) #2 - Anticubital Left Blood Culture - Preliminary No growth in 48 hours. 11/25/23 22:30 Blood Culture (Wb) - Anticubital Right Blood Culture - Preliminary No growth in 48 hours. 11/26/23 02:30 Urine, Random Legionella Antigen - Final 11/26/23 02:30 Urine, Random Streptococcus pneumoniae Antigen (M - Final 11/25/23 23:15 Mucosa - Nasopharyngeal SARS-CoV-2, Influenza & RSV (PCR) - Final Physical Exam Narrative Seen and examined. Patient is still short of breath. On 40% FiO2 on Airvo. IV antibiotic broadened to Zosyn on 11/27. Patient further said that she has a loop recorder by Dr. Veronica and wanted to see him to ask some questions. This was communicated to Dr. Veronica. Patient is still short of breath. Went into A-fib with RVR. Was on Cardizem drip. Converted to sinus rhythm in the morning. Blood pressure was on lower side in the upper 80s and got better after discontinuation of Cardizem drip. Physical exam General: Alert, Oriented x3, Cooperative HEENT: Atraumatic, PERRLA, EOMI, Normocephalic Oral: No Gingival or Mucosal Lesions/ Ulcerations Neck: Supple, No JVD, Negative Carotid Bruits Lungs: Air entry diminished in bilateral lung bases. Bilateral coarse crepitations/wheezing. On Airvo Cardiovascular: A-fib converted to sinus rhythm. Normal S1, Normal S2, No murmurs Abdomen: Bowel Sounds Present, Soft, Non Tender, Non-Distended : No renal angle tenderness. No suprapubic tenderness. Extremities: No edema, Capillary Refill Less than 3 Seconds Skin: No rashes, No breakdown Musculoskeletal: No Tenderness to Palpation of Joints or Extremities Neurological: Cranial nerves II-XII grossly intact, DTR 2+/4. No acute focal neurological deficit. Psych/Mental Status: Flat affect. Assessment & Plan Assessment/Plan (1) Sepsis: QUALIFIERS: Sepsis type: sepsis due to unspecified organism Sepsis acute organ dysfunction status: with acute organ dysfunction Severe sepsis acute organ dysfunction type: acute respiratory failure Acute respiratory failure type: with hypoxia Severe sepsis shock status: without septic shock Qualified Code(s): A41.9 - Sepsis, unspecified organism; R65.20 - Severe sepsis without septic shock; J96.01 - Acute respiratory failure with hypoxia (2) Pneumonia: QUALIFIERS: Pneumonia type: due to unspecified organism Laterality: bilateral Lung location: unspecified part of lung Qualified Code(s): J18.9 - Pneumonia, unspecified organism (3) Acidosis, lactic: (4) Acute hypoxic respiratory failure: PLAN: Plan 1. Sepsis due to severe bilateral, multifocal pneumonia evidenced by leukocytosis of 11.1 present on admission, lactic acidosis of 2.5 mmol/L present on admission and severe hypoxia - Admit to monitored bed for treatment under the sepsis protocol. Continue broad-spectrum antibiotics and await culture and sensitivity data. Give Tylenol as needed pain or fever. Give albuterol nebulizers as needed. Finally, due to the severity of the patient's condition we will consult glue size machine operator on-call to see this patient on rounds in the a.m. for further recommendations with help appreciated in advance. 11/27: COVID influenza and RSV PCR are negative. Strep and Legionella antigens are negative. Tmax 99. 9 Fahrenheit 11/28: Went into A-fib with RVR last night. Patient was started on Cardizem drip at night. Converted to sinus rhythm in the morning. Blood pressure on lower side in the upper 80s. Blood pressure got better after discontinuation most recent 105/55. Heart rate 84/min. Patient has loop recorder discussed with Dr. Veronica. 2. Acute hypoxic respiratory failure requiring Airvo 45L/min @ 49% FiO2 attributable to #1 - Wean supplemental oxygen with Airvo as tolerated. 11/27: Overnight patient FiO2 requirement went up,70% but currently 55%. 11/28: FiO2 requirement getting better currently on 40% FiO2. Continue IV antibiotic Zosyn. 3. Overweight; with BMI of 27.8 this admission - Weight loss will be recommended. Check TSH. 4. Intermittent tachycardia with palpitations; treated with metoprolol - Stable. Hold this agent until infection outlined in #1 is neutralized. 5. Migraine headaches - Stable with no complaints of headaches at this time. 6. Remote history of tobacco abuse (quit ~35 years ago) - Noted. 7. History of amaurosis fugax of the right eye - Noted. 8. History of virtually normal echocardiogram (01/2021) - Noted. 9. History of colonic diverticulosis - Stable. 10. History of colon cancer; with negative colonoscopy by Dr. Newberry (05/2023) - Noted. 11. DVT prophylaxis - Lovenox 40 mg sq daily. Charges/Coding Visit Charges Inpatient E&M: 07184 Subs Hosp L2
[2023-11-29] VITALS (16 sets, daily range): BP systolic 105–114; BP diastolic 56–68; PULSE 73–88; RESP 16–20; TEMP 36.7–36.8; O2SAT 91–100
[2023-11-29] MEDS: Piperacil/Tazobactam 3.375 GM in 0.9% Normal Saline (50mL MB+) 50 ML IV ×3 (05:11→20:26)
[2023-11-29] MEDS: Enoxaparin 40 MG/0.4 ML Syringe SC (05:12)
[2023-11-29 08:14] LABS: Absolute Lymphocyte Count 1.54 X10^3/uL (0.83-4.51); Absolute Neutrophil Count 7.3 X10^3/uL (2.0-7.7); Basophil# 0.06 X10^3/uL; Basophil% 0.6 % (0-1); Eosinophil# 0.53 X10^3/uL; Eosinophils% 5.2 % (0-5); Hematocrit 34.4 % (37-47); Hemoglobin 10.8 g/dL (12.0-15.0); Lymphocyte # 1.54 X10^3/ul (0.83-4.51); Lymphocyte % 15.1 % (19-41); Mean Corp Hgb Conc 31.4 g/dL (32-36); Mean Corpuscular Hgb 29.2 pg (27.0-32.0); Mean Platelet Vol. 9.8 fl (6.2-12.0); Monocyte# 0.71 X10^3/uL; NRBC Flagged by Analyzer 0 % (0-5); Neutrophil % 71.7 % (47-70); Platelet Count 289 K/mm3 (150-450); RBC Distribution Width SD 44.3 fl (35.1-43.9); White Blood Count 10.2 K/mm3 (4.4-11.0)
[2023-11-29 08:31] LABS: Anion Gap 4 (5-15); BUN 15 mg/dL (7-18); BUN/Creat Ratio 32.6 RATIO (10-20); Calcium,Total 8.8 mg/dL (8.5-10.1); Chloride 111 mmol/L (98-107); Creatinine, Serum 0.46 mg/dL (0.55-1.02); EST Glomerular Filtration Rate 145 mL/min (>60); Est Glom Filt Rate - Afr Amer 175 mL/min (>60); Estimated Creatinine Clearance 72.71 ml/min; Glucose 93 mg/dL (74-106); Potassium 3.7 mmol/L (3.5-5.1); Sodium Level 140 mmol/L (136-145)
[2023-11-29] MEDS: Aspirin E.C. 81 MG Tablet PO (09:10)
[2023-11-29] MEDS: Potassium Chloride Oral Tablet 20 MEQ 40 MEQ PO (09:10)
[2023-11-29] MEDS: Ascorbic Acid 500 MG Tablet 1000 MG PO ×2 (09:10→16:41)
[2023-11-29] MEDS: guaiFENesin 1,200 MG Tablet 1200 MG PO ×2 (09:10→20:26)
[2023-11-29] MEDS: Metoprolol(XL)Succ 25 MG Tablet PO (09:11)
[2023-11-29] MEDS: Zinc Sulfate 50 mg zinc (220 mg) ORAL capsule PO (09:11)
[2023-11-29] MEDS: Cholecalciferol (Vit D3) 125 MCG CAPSULE (5,000 UNITS) PO (09:11)
--- NOTE | 2023-11-29 12:49 | PN.CC_ITS ---
Assessment & Plan Assessment/Plan (1) Acute hypoxic respiratory failure: PLAN: Plan RECOMMENDATIONS: 1. Continue antibiotics to complete 7 days of therapy. 2. Continue to wean supplemental oxygen to maintain saturations at or above 90%. 3. Continue appropriate DVT prophylaxis. 4. Encourage incentive spirometer use and mobilize patient as tolerated. 5. Perform walking oximetry study prior to consideration for discharge home. IMPRESSIONS: 1. Acute hypoxemic respiratory failure Clinical concern for underlying bilateral pneumonia. The patient has no pre- existing lung conditions and does not utilize supplemental oxygen at her baseline. The patient is gradually improving with antimicrobial management. Continue to wean supplemental oxygen to maintain saturations at or above 90%. Encourage incentive spirometer use and mobilize patient as tolerated. I would recommend that the patient complete a total of 7 days of antimicrobial therapy. 2. History of palpitations/tachycardia/history of migraine headaches/remote tobacco abuse history Complicates care, management, recovery and prognosis. Continue current medical management and supportive care as noted above. This note was generated with [employer] dictation software. It may contain incorrect words, spelling, and punctuation that were not noted in checking the note before signing. Subjective Subjective The patient was seen and examined at the bedside this morning. Events from the last 24 hours have been reviewed. The patient is currently afebrile, hemodyn amically stable and maintaining appropriate oxygen saturations on 5 L/min via nasal cannula. Overall, the patient reported that she feels much better, improving day by day. Morning labs are stable. Objective Data Objective Data The patient's most recent lab work, culture data and imaging studies have all been personally reviewed. Strep and urine Legionella antigens were negative. COVID, influenza and RSV PCR's were negative. Vital Signs: Vital Signs Temp Pulse Resp BP Pulse Ox O2 Del Method O2 Flow Rate 98.3 F 85 18 105/63 98 Nasal Cannula 5 11/29/23 09:00 11/29/23 09:11 11/29/23 09:00 11/29/23 09:11 11/29/23 12:48 11/29/23 12:48 11/29/23 12:48 FiO2 50 11/29/23 09:00 Oxygen Flow Rate (L/min) 5 Oxygen Delivery Method Nasal Cannula Weight: 166 lb 0.129 oz Body Mass Index (BMI) 26.8 Intake & Output: Intake and Output for Last 24 Hours 11/27/23 11/28/23 11/29/23 23:59 23:59 23:59 Intake Total 1300 / 1300 2208.33 / 2208.33 100 / 100 Balance 1300 / 1300 2208.33 / 2208.33 100 / 100 Lab / Micro Data Attestation: I reviewed the patient's lab results. 11/29/23 07:55 11/29/23 07:55 Labs: Laboratory Results - last 24 hr 11/28/23 06:55: Phosphorus 3.0, Magnesium 2.1 11/29/23 07:55: WBC 10.2, RBC 3.70 L, Hgb 10.8 L, Hct 34.4 L, MCV 93.0, MCH 29.2, MCHC 31.4 L, RDW Std Deviation 44.3 H, RDW Coeff of Rebekah 13.0, Plt Count 289, MPV 9.8, Immature Gran % (Auto) 0.400, Neut % (Auto) 71.7 H, Lymph % (Auto) 15.1 L, [place] % (Auto) 7.0, Eos % (Auto) 5.2 H, Baso % (Auto) 0.6, Absolute Neuts (auto) 7.3, Absolute Lymphs (auto) 1.54, Nucleated RBC % 0, Sodium 140, Potassium 3.7, Chloride 111 H, Carbon Dioxide 25.0, Anion Gap 4 L, BUN 15, Creatinine 0.46 L, Estim Creat Clear Calc 72.71, Est GFR (MDRD) Af Amer 175, Est GFR (MDRD) Non-Af 145, BUN/Creatinine Ratio 32.6 H, Glucose 93, Calcium 8.8 Micro: Microbiology 11/25/23 23:00 Blood Culture (Wb) #2 - Anticubital Left Blood Culture - Preliminary No growth in 48 hours. 11/25/23 22:30 Blood Culture (Wb) - Anticubital Right Blood Culture - Preliminary No growth in 48 hours. 11/26/23 02:30 Urine, Random Legionella Antigen - Final 11/26/23 02:30 Urine, Random Streptococcus pneumoniae Antigen (M - Final 11/25/23 23:15 Mucosa - Nasopharyngeal SARS-CoV-2, Influenza & RSV (PCR) - Final Physical Exam Const alert and no apparent distress Constitutional Narrative: Sitting in bedside recliner. General Appearance: cooperative HEENT normocephalic, head/scalp atraumatic and moist oral mucous membranes Eyes PERRL, EOMs intact bilaterally and conjunctivae normal Neck supple General: trachea midline Chest inspection of chest normal Resp normal respiratory effort and no use of accessory muscles Resp Narrative: Mild basilar rales Effort and Inspection: able to speak in complete sentences Cardio regular rate and regular rhythm GI normal to inspection, nondistended, normoactive bowel sounds Extremity no clubbing, cyanosis or edema Skin no rashes or lesions noted Neuro oriented x3, CN's II-XII intact bilaterally and moves all extremities Psych cooperative and affect normal Charges/Coding Visit Charges Inpatient E&M: 07393 Subs Hosp L2
--- NOTE | 2023-11-29 14:29 | PN.HOSP_ITS ---
Reason for Visit Reason for Visit: Diagnoses Sepsis, unspecified organism (11/26/23) Acidosis, unspecified (11/26/23) Pneumonia, unspecified organism (11/26/23) Acute respiratory failure with hypoxia (11/26/23) Other abnormalities of breathing (11/26/23) Severe sepsis without septic shock (11/26/23) Objective Data Objective Data Vital Signs: Vital Signs Temp Pulse Resp BP Pulse Ox O2 Del Method O2 Flow Rate 98.1 F 84 16 114/56 L 96 Nasal Cannula 5 11/29/23 13:29 11/29/23 13:29 11/29/23 13:29 11/29/23 13:29 11/29/23 13:29 11/29/23 13:29 11/29/23 13:29 FiO2 50 11/29/23 09:00 Oxygen Flow Rate (L/min) 5 Oxygen Delivery Method Nasal Cannula Weight: 166 lb 0.129 oz Body Mass Index (BMI) 26.8 Intake & Output: Intake and Output for Last 24 Hours 11/27/23 11/28/23 11/29/23 23:59 23:59 23:59 Intake Total 1300 / 1300 2208.33 / 2208.33 800 / 800 Balance 1300 / 1300 2208.33 / 2208.33 800 / 800 Lab / Micro Data 11/29/23 07:55 11/29/23 07:55 Labs: Laboratory Results - last 24 hr 11/29/23 07:55: WBC 10.2, RBC 3.70 L, Hgb 10.8 L, Hct 34.4 L, MCV 93.0, MCH 29.2, MCHC 31.4 L, RDW Std Deviation 44.3 H, RDW Coeff of Rebekah 13.0, Plt Count 289, MPV 9.8, Immature Gran % (Auto) 0.400, Neut % (Auto) 71.7 H, Lymph % (Auto) 15.1 L, [place] % (Auto) 7.0, Eos % (Auto) 5.2 H, Baso % (Auto) 0.6, Absolute Neuts (auto) 7.3, Absolute Lymphs (auto) 1.54, Nucleated RBC % 0, Sodium 140, Potassium 3.7, Chloride 111 H, Carbon Dioxide 25.0, Anion Gap 4 L, BUN 15, Creatinine 0.46 L, Estim Creat Clear Calc 72.71, Est GFR (MDRD) Af Amer 175, Est GFR (MDRD) Non-Af 145, BUN/Creatinine Ratio 32.6 H, Glucose 93, Calcium 8.8 Micro: Microbiology 11/25/23 23:00 Blood Culture (Wb) #2 - Anticubital Left Blood Culture - Preliminary No growth in 48 hours. 11/25/23 22:30 Blood Culture (Wb) - Anticubital Right Blood Culture - Preliminary No growth in 48 hours. 11/26/23 02:30 Urine, Random Legionella Antigen - Final 11/26/23 02:30 Urine, Random Streptococcus pneumoniae Antigen (M - Final 11/25/23 23:15 Mucosa - Nasopharyngeal SARS-CoV-2, Influenza & RSV (PCR) - Final Physical Exam Narrative Seen and examined. Objectively patient does not look short of breath and comfortable on 50% FiO2 Airvo in the morning. Transition to 5 L high flow oxygen. Does not have chest pain. IV antibiotic broadened to Zosyn on 11/27. Patient was seen by Dr. Veronica on 11/29. She has a loop recorder. Physical exam General: Alert, Oriented x3, Cooperative HEENT: Atraumatic, PERRLA, EOMI, Normocephalic Oral: No Gingival or Mucosal Lesions/ Ulcerations Neck: Supple, No JVD, Negative Carotid Bruits Lungs: Air entry diminished in bilateral lung bases. Bilateral coarse crepitations have improved. On Airvo/high flow oxygen. No tachypnea. Cardiovascular: A-fib converted to sinus rhythm. Normal S1, Normal S2, No murmurs Abdomen: Bowel Sounds Present, Soft, Non Tender, Non-Distended : No renal angle tenderness. No suprapubic tenderness. Extremities: No edema, Capillary Refill Less than 3 Seconds Skin: No rashes, No breakdown Musculoskeletal: No Tenderness to Palpation of Joints or Extremities Neurological: Cranial nerves II-XII grossly intact, DTR 2+/4. No acute focal neurological deficit. Psych/Mental Status: Flat affect. Assessment & Plan Assessment/Plan (1) Sepsis: QUALIFIERS: Sepsis type: sepsis due to unspecified organism Sepsis acute organ dysfunction status: with acute organ dysfunction Severe sepsis acute organ dysfunction type: acute respiratory failure Acute respiratory failure type: with hypoxia Severe sepsis shock status: without septic shock Qualified Code(s): A41.9 - Sepsis, unspecified organism; R65.20 - Severe sepsis without septic shock; J96.01 - Acute respiratory failure with hypoxia (2) Pneumonia: QUALIFIERS: Pneumonia type: due to unspecified organism Laterality: bilateral Lung location: unspecified part of lung Qualified Code(s): J18.9 - Pneumonia, unspecified organism (3) Acidosis, lactic: (4) Acute hypoxic respiratory failure: PLAN: Plan 1. Sepsis due to severe bilateral, multifocal pneumonia evidenced by leukocytosis of 11.1 present on admission, lactic acidosis of 2.5 mmol/L present on admission and severe hypoxia - Admit to monitored bed for treatment under the sepsis protocol. Continue broad-spectrum antibiotics and await culture and sensitivity data. Give Tylenol as needed pain or fever. Give albuterol nebulizers as needed. Finally, due to the severity of the patient's condition we will consult coin machine collector supervisor on-call to see this patient on rounds in the a.m. for further recommendations with help appreciated in advance. 11/27: COVID influenza and RSV PCR are negative. Strep and Legionella antigens are negative. Tmax 99. 9 Fahrenheit 11/29: Currently in sinus rhythm. Continue IV antibiotic total of 7 days. Continue aggressive pulmonary hygiene with incentive spirometry. Seen by coin machine collector supervisor. 2. Acute hypoxic respiratory failure requiring Airvo 45L/min @ 49% FiO2 attributable to #1 - Wean supplemental oxygen with Airvo as tolerated. 11/27: Overnight patient FiO2 requirement went up,70% but currently 55%. 11/28: FiO2 requirement getting better currently on 40% FiO2. Continue IV antibiotic Zosyn. 3. Overweight; with BMI of 27.8 this admission - Weight loss will be recommended. Check TSH. 4. Paroxysmal A-fib; 11/28: Went into A-fib with RVR last night. History of paroxysmal A-fib. Patient was started on Cardizem drip at night. Converted to sinus rhythm in the morning. Blood pressure on lower side in the upper 80s. Blood pressure got better after discontinuation most recent 105/55. Heart rate 84/min. Patient has loop recorder discussed with Dr. Veronica. 11/29: Blood pressure improved after discontinuation of Cardizem, 114/56 heart rate 84. On metoprolol succinate 25 mg daily. 5. Migraine headaches - Stable with no complaints of headaches at this time. 6. Remote history of tobacco abuse (quit ~35 years ago) - Noted. 7. History of amaurosis fugax of the right eye - Noted. 8. History of virtually normal echocardiogram (01/2021) - Noted. 9. History of colonic diverticulosis - Stable. 10. History of colon cancer; with negative colonoscopy by Dr. Newberry (05/2023) - Noted. 11. DVT prophylaxis - Lovenox 40 mg sq daily. Charges/Coding Visit Charges Inpatient E&M: 59101 Subs Hosp L2
[2023-11-29] MEDS: 0.9% Saline Lock 10 ML Syringe IV (20:26)
[2023-11-30] VITALS (7 sets, daily range): BP systolic 94–106; BP diastolic 59–72; PULSE 74–83; RESP 14–16; TEMP 36.2–36.8; O2SAT 77–98
[2023-11-30] MEDS: Enoxaparin 40 MG/0.4 ML Syringe SC (05:22)
[2023-11-30] MEDS: Piperacil/Tazobactam 3.375 GM in 0.9% Normal Saline (50mL MB+) 50 ML IV (05:22)
[2023-11-30 07:09] LABS: Absolute Lymphocyte Count 1.76 X10^3/uL (0.83-4.51); Absolute Neutrophil Count 5.9 X10^3/uL (2.0-7.7); Basophil# 0.06 X10^3/uL; Basophil% 0.7 % (0-1); Eosinophil# 0.56 X10^3/uL; Eosinophils% 6.3 % (0-5); Hematocrit 33.6 % (37-47); Hemoglobin 10.9 g/dL (12.0-15.0); Lymphocyte # 1.76 X10^3/ul (0.83-4.51); Lymphocyte % 19.8 % (19-41); Mean Corp Hgb Conc 32.4 g/dL (32-36); Mean Corpuscular Hgb 29.3 pg (27.0-32.0); Mean Corpuscular Volume 90.3 fL (81-99); Mean Platelet Vol. 9.7 fl (6.2-12.0); Monocyte% 6.7 % (0-10); NRBC Flagged by Analyzer 0 % (0-5); Neutrophil # 5.89 X10^3/uL (2.7-7.7); Neutrophil % 66.1 % (47-70); Platelet Count 318 K/mm3 (150-450); RBC Distribution Width CV 12.8 % (11.6-14.6); RBC Distribution Width SD 42.2 fl (35.1-43.9); Red Blood Count 3.72 M/mm3 (4.2-5.4); White Blood Count 8.9 K/mm3 (4.4-11.0)
[2023-11-30 07:48] LABS: Anion Gap 3 (5-15); BUN 14 mg/dL (7-18); BUN/Creat Ratio 28.9 RATIO (10-20); Chloride 110 mmol/L (98-107); Creatinine, Serum 0.48 mg/dL (0.55-1.02); EST Glomerular Filtration Rate 137 mL/min (>60); Est Glom Filt Rate - Afr Amer 165 mL/min (>60); Estimated Creatinine Clearance 72.71 ml/min; Glucose 99 mg/dL (74-106); Potassium 3.7 mmol/L (3.5-5.1); Sodium Level 138 mmol/L (136-145)
--- NOTE | 2023-11-30 09:23 | PN.HOSP_ITS ---
Reason for Visit Reason for Visit: Diagnoses Sepsis, unspecified organism (11/26/23) Acidosis, unspecified (11/26/23) Pneumonia, unspecified organism (11/26/23) Acute respiratory failure with hypoxia (11/26/23) Other abnormalities of breathing (11/26/23) Severe sepsis without septic shock (11/26/23) Objective Data Objective Data Vital Signs: Vital Signs Temp Pulse Resp BP Pulse Ox O2 Del Method O2 Flow Rate 98.2 F 76 14 96/72 96 Nasal Cannula 2 11/30/23 02:30 11/30/23 02:30 11/30/23 02:30 11/30/23 02:30 11/30/23 02:30 11/30/23 03:00 11/30/23 03:00 FiO2 50 11/29/23 09:00 Oxygen Flow Rate (L/min) 2 Oxygen Delivery Method Nasal Cannula Weight: 166 lb 0.129 oz Body Mass Index (BMI) 26.8 Intake & Output: Intake and Output for Last 24 Hours 11/28/23 11/29/23 11/30/23 23:59 23:59 23:59 Intake Total 2208.33 / 2208.33 850 / 850 50 / 50 Output Total 1100 / 1100 Balance 2208.33 / 2208.33 850 / 850 -1050 / -1050 Lab / Micro Data 11/30/23 06:45 11/30/23 06:45 Labs: Laboratory Results - last 24 hr 11/30/23 06:45: WBC 8.9, RBC 3.72 L, Hgb 10.9 L, Hct 33.6 L, MCV 90.3, MCH 29.3, MCHC 32.4, RDW Std Deviation 42.2, RDW Coeff of Rebekah 12.8, Plt Count 318, MPV 9.7, Immature Gran % (Auto) 0.400, Neut % (Auto) 66.1, Lymph % (Auto) 19.8, [place] % (Auto) 6.7, Eos % (Auto) 6.3 H, Baso % (Auto) 0.7, Absolute Neuts (auto) 5.9, Absolute Lymphs (auto) 1.76, Nucleated RBC % 0, Sodium 138, Potassium 3.7, Chloride 110 H, Carbon Dioxide 25.0, Anion Gap 3 L, BUN 14, Creatinine 0.48 L, Estim Creat Clear Calc 72.71, Est GFR (MDRD) Af Amer 165, Est GFR (MDRD) Non-Af 137, BUN/Creatinine Ratio 28.9 H, Glucose 99, Calcium 9.0 Micro: Microbiology 11/29/23 16:10 Stool Clostridioides difficile (PCR) - Final 11/25/23 23:00 Blood Culture (Wb) #2 - Anticubital Left Blood Culture - Preliminary No growth in 48 hours. 11/25/23 22:30 Blood Culture (Wb) - Anticubital Right Blood Culture - Preliminary No growth in 48 hours. 11/26/23 02:30 Urine, Random Legionella Antigen - Final 11/26/23 02:30 Urine, Random Streptococcus pneumoniae Antigen (M - Final 11/25/23 23:15 Mucosa - Nasopharyngeal SARS-CoV-2, Influenza & RSV (PCR) - Final Physical Exam Narrative Seen and examined. Objectively patient does not look short of breath and comfortable on 50% FiO2 Airvo in the morning. Transition to 5 L high flow oxygen. Does not have chest pain. IV antibiotic broadened to Zosyn on 11/27. Patient was seen by Dr. Veronica on 11/29. She has a loop recorder. Physical exam General: Alert, Oriented x3, Cooperative HEENT: Atraumatic, PERRLA, EOMI, Normocephalic Oral: No Gingival or Mucosal Lesions/ Ulcerations Neck: Supple, No JVD, Negative Carotid Bruits Lungs: Air entry diminished in bilateral lung bases. Bilateral coarse crepitations have improved. On Airvo/high flow oxygen. No tachypnea. Cardiovascular: A-fib converted to sinus rhythm. Normal S1, Normal S2, No murmurs Abdomen: Bowel Sounds Present, Soft, Non Tender, Non-Distended : No renal angle tenderness. No suprapubic tenderness. Extremities: No edema, Capillary Refill Less than 3 Seconds Skin: No rashes, No breakdown Musculoskeletal: No Tenderness to Palpation of Joints or Extremities Neurological: Cranial nerves II-XII grossly intact, DTR 2+/4. No acute focal neurological deficit. Psych/Mental Status: Flat affect. Assessment & Plan Assessment/Plan (1) Sepsis: QUALIFIERS: Sepsis type: sepsis due to unspecified organism Sepsis acute organ dysfunction status: with acute organ dysfunction Severe sepsis acute organ dysfunction type: acute respiratory failure Acute respiratory failure type: with hypoxia Severe sepsis shock status: without septic shock Qualified Code(s): A41.9 - Sepsis, unspecified organism; R65.20 - Severe sepsis without septic shock; J96.01 - Acute respiratory failure with hypoxia (2) Pneumonia: QUALIFIERS: Pneumonia type: due to unspecified organism Laterality: bilateral Lung location: unspecified part of lung Qualified Cod e(s): J18.9 - Pneumonia, unspecified organism (3) Acidosis, lactic: (4) Acute hypoxic respiratory failure: PLAN: Plan 1. Sepsis due to severe bilateral, multifocal pneumonia evidenced by leukocytosis of 11.1 present on admission, lactic acidosis of 2.5 mmol/L present on admission and severe hypoxia - Admit to monitored bed for treatment under [facility] sepsis protocol. Continue broad-spectrum antibiotics and await culture and sensitivity data. Give Tylenol as needed pain or fever. Give albuterol nebulizers as needed. Finally, due to the severity of the patient's condition we will consult nut processing supervisor on-call to see this patient on rounds in the a.m. for further recommendations with help appreciated in advance. 11/27: COVID influenza and RSV PCR are negative. Strep and Legionella antigens are negative. Tmax 99. 9 Fahrenheit 11/29: Currently in sinus rhythm. Continue IV antibiotic total of 7 days. Continue aggressive pulmonary hygiene with incentive spirometry. Seen by nut processing supervisor. 2. Acute hypoxic respiratory failure requiring Airvo 45L/min @ 49% FiO2 attributable to #1 - Wean supplemental oxygen with Airvo as tolerated. 11/27: Overnight patient FiO2 requirement went up,70% but currently 55%. 11/28: FiO2 requirement getting better currently on 40% FiO2. Continue IV antibiotic Zosyn. 3. Overweight; with BMI of 27.8 this admission - Weight loss will be recommended. Check TSH. 4. Paroxysmal A-fib; 11/28: Went into A-fib with RVR last night. History of paroxysmal A-fib. Patient was started on Cardizem drip at night. Converted to sinus rhythm in the morning. Blood pressure on lower side in the upper 80s. Blood pressure got better after discontinuation most recent 105/55. Heart rate 84/min. Patient has loop recorder discussed with Dr. Veronica. 11/29: Blood pressure improved after discontinuation of Cardizem, 114/56 heart rate 84. On metoprolol succinate 25 mg daily. 5. Migraine headaches - Stable with no complaints of headaches at this time. 6. Remote history of tobacco abuse (quit ~35 years ago) - Noted. 7. History of amaurosis fugax of the right eye - Noted. 8. History of virtually normal echocardiogram (01/2021) - Noted. 9. History of colonic diverticulosis - Stable. 10. History of colon cancer; with negative colonoscopy by Dr. Newberry (05/2023) - Noted. 11. DVT prophylaxis - Lovenox 40 mg sq daily.
--- NOTE | 2023-11-30 09:23 | PCM.DC ---
Discharge Instructions Diet Discharge Diet: No restrictions Activity Discharge Activity: Return to Normal Activity Weight Bearing Status: Weight bearing as tolerated Dressing / Incision Call your doctor if you observe: Fever of 101 or Higher, Coldness, Increased Pain, Numbness or Tingling, Change in Color, Inability to urinate, Inability to have a bowel movement, Using more than 1 pad per hour, Shortness of breath, Dizziness, Fainting spells, Swelling in the ankles, Chest pain, Prolonged hiccupping, Increased palpitations (irregular heartbeat) and Calf discomfort Follow Up Care When: IN 2 WEEKS Test Results: Test results from this visit will be discussed in further detail at your follow-up appointment, if applicable. Discharge Plan Admission Admit Date/Time: 11/26/23 01:23 Primary Reason for Your Visit: Bilateral pneumonia. Attending Provider: Geovanni Dorantes Primary Care Provider: Alicia Alston Consulting Providers: Tang Long; Lisa Jackson Instructions Additional Instructions / Restrictions: Advised to continue incentive spirometry and Pep for 1 more week. Discharge Orders/Prescriptions Prescriptions: New acidophilus-pectin, citrus 25 million cell -100 mg Tablet 2 tab PO BID Qty: 0 0RF Rx Instructions: For 7 days. levofloxacin 500 mg tablet 500 mg PO DAILY 4 Days Qty: 4 0RF pseudoephedrine-guaifenesin [Mucus D] 120-1,200 mg tablet extended release 12 hr 1 tab PO Q12H 7 Days Qty: 14 0RF Continued aspirin [Adult Low Dose Aspirin] 81 mg tablet,delayed release (DR/EC) 81 mg PO DAILY ascorbic acid (vitamin C) [C Complex] 500 mg tablet extended release 500 mg PO DAILY metoprolol succinate 25 mg tablet extended release 24 hr 25 mg PO DAILY Qty: 90 3RF Referrals / Follow Up: Alicia Alston DO [Primary Care Provider] - Artie Veronica MD [Med Staff - Active Staff] - Within 1 Month Heladio Clancy DO [Med Staff - Active Staff] - Within 2 Weeks (For PFT and follow-up for pneumonia/hypoxia.) Disposition Disposition (needs filled in before D/C Order can be placed): Home, Self Care
[2023-11-30] MEDS: Metoprolol(XL)Succ 25 MG Tablet PO (09:51)
[2023-11-30] MEDS: Ascorbic Acid 500 MG Tablet 1000 MG PO (09:51)
[2023-11-30] MEDS: Potassium Chloride Oral Tablet 20 MEQ 40 MEQ PO (09:51)
[2023-11-30] MEDS: Cholecalciferol (Vit D3) 125 MCG CAPSULE (5,000 UNITS) PO (09:51)
[2023-11-30] MEDS: Aspirin E.C. 81 MG Tablet PO (09:51)
[2023-11-30] MEDS: guaiFENesin 1,200 MG Tablet 1200 MG PO (09:52)
[2023-11-30] MEDS: Zinc Sulfate 50 mg zinc (220 mg) ORAL capsule PO (09:52)
--- NOTE | 2023-11-30 10:42 | PN.CC_ITS ---
Assessment & Plan Assessment/Plan (1) Acute hypoxic respiratory failure: PLAN: Plan RECOMMENDATIONS: 1. Continue antibiotics to complete 7 days of therapy. 2. Continue to wean supplemental oxygen to maintain saturations at or above 90%. 3. Continue appropriate DVT prophylaxis. 4. Encourage incentive spirometer use and mobilize patient as tolerated. 5. Perform walking oximetry study prior to consideration for discharge home. 6. Follow-up in the pulmonary medicine clinic 2 weeks postdischarge. 7. The patient is medically stable for discharge home from my perspective. Please call with any additional questions. IMPRESSIONS: 1. Acute hypoxemic respiratory failure Clinical concern for underlying bilateral pneumonia. The patient has no pre- existing lung conditions and does not utilize supplemental oxygen at her [facility]. The patient is gradually improving with antimicrobial management. Continue to wean supplemental oxygen to maintain saturations at or above 90%. Encourage incentive spirometer use and mobilize patient as tolerated. I would recommend that the patient complete a total of 7 days of antimicrobial therapy. I do anticipate that the patient will have a home-going supplemental oxygen requirement. She can follow-up in the pulmonary medicine clinic in 2 weeks, at which time, we can reassess her supplemental oxygen needs. 2. History of palpitations/tachycardia/history of migraine headaches/remote tobacco abuse history Complicates care, management, recovery and prognosis. Continue current medical management and supportive care as noted above. This note was generated with Droid system master dictation software. It may contain incorrect words, spelling, and punctuation that were not noted in checking the note before signing. Subjective Subjective The patient was seen and examined at the bedside this morning. Events from the last 24 hours have been reviewed. The patient is currently afebrile, h emodynamically stable and maintaining appropriate oxygen saturations on 2 L/min via nasal cannula. The patient again reports feeling significantly better over the last several days. Objective Data Objective Data The patient's most recent lab work, culture data and imaging studies have all been personally reviewed. Strep and urine Legionella antigens were negative. COVID, influenza and RSV PCR's were negative. Vital Signs: Vital Signs Temp Pulse Resp BP Pulse Ox O2 Del Method O2 Flow Rate 97.2 F L 83 16 106/62 94 Nasal Cannula 2 11/30/23 09:46 11/30/23 09:51 11/30/23 09:46 11/30/23 09:51 11/30/23 09:46 11/30/23 10:00 11/30/23 10:00 FiO2 50 11/29/23 09:00 Oxygen Flow Rate (L/min) 2 Oxygen Delivery Method Nasal Cannula Weight: 166 lb 0.129 oz Body Mass Index (BMI) 26.8 Intake & Output: Intake and Output for Last 24 Hours 11/28/23 11/29/23 11/30/23 23:59 23:59 23:59 Intake Total 2208.33 / 2208.33 850 / 850 100 / 100 Output Total 1100 / 1100 Balance 2208.33 / 2208.33 850 / 850 -1000 / -1000 Lab / Micro Data Attestation: I reviewed the patient's lab results. 11/30/23 06:45 11/30/23 06:45 Labs: Laboratory Results - last 24 hr 11/30/23 06:45: WBC 8.9, RBC 3.72 L, Hgb 10.9 L, Hct 33.6 L, MCV 90.3, MCH 29.3, MCHC 32.4, RDW Std Deviation 42.2, RDW Coeff of Rebekah 12.8, Plt Count 318, MPV 9.7, Immature Gran % (Auto) 0.400, Neut % (Auto) 66.1, Lymph % (Auto) 19.8, [place] % (Auto) 6.7, Eos % (Auto) 6.3 H, Baso % (Auto) 0.7, Absolute Neuts (auto) 5.9, Absolute Lymphs (auto) 1.76, Nucleated RBC % 0, Sodium 138, Potassium 3.7, Chloride 110 H, Carbon Dioxide 25.0, Anion Gap 3 L, BUN 14, Creatinine 0.48 L, Estim Creat Clear Calc 72.71, Est GFR (MDRD) Af Amer 165, Est GFR (MDRD) Non-Af 137, BUN/Creatinine Ratio 28.9 H, Glucose 99, Calcium 9.0 Micro: Microbiology 11/29/23 16:10 Stool Clostridioides difficile (PCR) - Final 11/25/23 23:00 Blood Culture (Wb) #2 - Anticubital Left Blood Culture - Preliminary No growth in 48 hours. 11/25/23 22:30 Blood Culture (Wb) - Anticubital Right Blood Culture - Preliminary No growth in 48 hours. 11/26/23 02:30 Urine, Random Legionella Antigen - Final 11/26/23 02:30 Urine, Random Streptococcus pneumoniae Antigen (M - Final 11/25/23 23:15 Mucosa - Nasopharyngeal SARS-CoV-2, Influenza & RSV (PCR) - Final Physical Exam Const alert and no apparent distress Constitutional Narrative: Sitting in bedside recliner. General Appearance: cooperative HEENT normocephalic, head/scalp atraumatic and moist oral mucous membranes Eyes PERRL, EOMs intact bilaterally and conjunctivae normal Neck supple General: trachea midline Chest inspection of chest normal Resp normal respiratory effort and no use of accessory muscles Resp Narrative: Mild bibasilar rales Effort and Inspection: able to speak in complete sentences Cardio regular rate and regular rhythm GI normal to inspection, nondistended, normoactive bowel sounds Extremity no clubbing, cyanosis or edema Skin no rashes or lesions noted Neuro oriented x3, CN's II-XII intact bilaterally and moves all extremities Psych cooperative and affect normal Charges/Coding Visit Charges Inpatient E&M: 26064 Subs Hosp L2
--- NOTE | 2023-11-30 12:09 | PCM.DC.SUM ---
Providers Date of Admission: 11/26/23 Date of Discharge: 11/30/23 Primary Care Physician: Dr. Alicia Alston, DO Consultations 11/26/23 01:32 Consult: Dcs Engineer / Pulmonary Medicine Routine Consulting Provider: Intensivists/Pulmonary Med Reason for Consult: Sepsis due to severe bilateral multifocal pneumonia EMERGENT Consult: No MD Notified: Yes Date Notified: 11/26/23 Time Notified: 01:24 Method of Notification: Verbal Reason For Visit: SEPSIS DUE TO SEVEREBILATERAL MULTIFOCAL PNEUMONIA Diagnosis Discharge Diagnosis (1) Acute hypoxic respiratory failure: Status: Acute Code(s): J96.01 - Acute respiratory failure with hypoxia Plan 1 severe bilateral, multifocal pneumonia evidenced by leukocytosis of 11.1 present on admission, lactic acidosis of 2.5 mmol/L present on admission and severe hypoxia - Admit to monitored bed Continue broad-spectrum antibiotics and await culture and sensitivity data. Give Tylenol as needed pain or fever. Give albuterol nebulizers as needed. Finally, due to the severity of the patient's condition we will consult heavy repairer on-call to see this patient on rounds in the a.m. for further recommendations with help appreciated in advance. 11/27: COVID influenza and RSV PCR are negative. Strep and Legionella antigens are negative. Tmax 99. 9 Fahrenheit 11/29: Currently in sinus rhythm. Continue IV antibiotic total of 7 days. Continue aggressive pulmonary hygiene with incentive spirometry. Seen by heavy repairer. 11/30: Patient does not meet the new SEP-3 criteria for sepsis therefore sepsis ruled out. Patient is discharged on Levaquin to complete a total of 7 days of antibiotic. 2. Acute hypoxic respiratory failure requiring Airvo 45L/min @ 49% FiO2 attributable to #1 - Wean supplemental oxygen with Airvo as tolerated. 11/27: Overnight patient FiO2 requirement went up,70% but currently 55%. 11/28: FiO2 requirement getting better currently on 40% FiO2. Continue IV antibiotic Zosyn. 11/30: Oxygen requirement has come down to 2 L. Home qualification oxygen was done and patient requires 2 L oxygen. Pulse ox 93% at rest on ambient air, 77% ambulating on ambient air and 92% on 2 L on ambulation. Patient is ambulatory in home and in the community and requires home oxygen with portability during walking or injection for diagnosis of bilateral pneumonia. 3. Overweight; with BMI of 27.8 this admission - Weight loss will be recommended. Check TSH. 4. Paroxysmal A-fib; 11/28: Went into A-fib with RVR last night. History of paroxysmal A-fib. Patient was started on Cardizem drip at night. Converted to sinus rhythm in the morning. Blood pressure on lower side in the upper 80s due to Cardizem drip. Blood pressure got better after discontinuation most recent 105/55. Heart rate 84/min. Patient has loop recorder discussed with Dr. Veronica. 11/29: Blood pressure improved after discontinuation of Cardizem, 114/56 heart rate 84. On metoprolol succinate 25 mg daily. 5. Migraine headaches - Stable with no complaints of headaches at this time. 6. Remote history of tobacco abuse (quit ~35 years ago) - Noted. 7. History of amaurosis fugax of the right eye - Noted. 8. History of virtually normal echocardiogram (01/2021) - Noted. 9. History of colonic diverticulosis - Stable. 10. History of colon cancer; with negative colonoscopy by Dr. Newberry (05/2023) - Noted. 11. DVT prophylaxis - Lovenox 40 mg sq daily. Discharge medication reconciliation done. Discharge follow-up instructions completed. Discharge process discussed with the patient and all questions were answered to patient's satisfaction. Follow with PCP in 1 to 2 weeks. Follow-up in pulmonary clinic in 2 weeks. Total time spent, exact 35 minutes on discharge meds reconciliation, examination, coordination of care with nurses and ancillary staff, review of imaging and blood test and discussion with the patient on follow-up instructions. Medications at Discharge Home Medications aspirin 81 mg tablet,delayed release (Adult Low Dose Aspirin) 81 mg PO DAILY 01/18/21 metoprolol succinate 25 mg tablet,extended release 24 hr 25 mg PO DAILY #90 tabs 07/28/23 ascorbic acid (vitamin C) 500 mg tablet,extended release (C Complex) 500 mg PO DAILY 11/25/23 acidophilus 25 million cell-pectin, citrus 100 mg tablet 2 tab PO BID #0 tabs 11/30/23 levofloxacin 500 mg tablet 500 mg PO DAILY 4 days #4 tabs 11/30/23 pseudoephedrine-guaifenesin ER 120 mg-1,200 mg tab,extend release 12hr (Mucus D) 1 tab PO Q12H cold symptoms 1 week #14 tabs 11/30/23 Physical Exam Narrative Seen and examined. Patient on 2 L of oxygen. Comfortable breathing with no shortness of breath. Does not have chest pain. IV antibiotic broadened to Zosyn on 11/27. Patient was seen by Dr. Veronica on 11/29. She has a loop recorder. Physical exam General: Alert, Oriented x3, Cooperative HEENT: Atraumatic, PERRLA, EOMI, Normocephalic Oral: No Gingival or Mucosal Lesions/ Ulcerations Neck: Supple, No JVD, Negative Carotid Bruits Lungs: Air entry diminished in bilateral lung bases. Bilateral coarse crepitations have improved. On 2 L of oxygen. Cardiovascular: A-fib converted to sinus rhythm. Normal S1, Normal S2, No murmurs Abdomen: Bowel Sounds Present, Soft, Non Tender, Non-Distended : No renal angle tenderness. No suprapubic tenderness. Extremities: No edema, Capillary Refill Less than 3 Seconds Skin: No rashes, No breakdown Musculoskeletal: No Tenderness to Palpation of Joints or Extremities Neurological: Cranial nerves II-XII grossly intact, DTR 2+/4. No acute focal neurological deficit. Psych/Mental Status: Flat affect. Weight / BMI Weight Weight: 166 lb 0.129 oz Body Mass Index (BMI) 26.8 ABG / Lab / Microbiology Data 11/30/23 06:45 11/30/23 06:45 Laboratory: Laboratory Results - last 24 hr 11/30/23 06:45: WBC 8.9, RBC 3.72 L, Hgb 10.9 L, Hct 33.6 L, MCV 90.3, MCH 29.3, MCHC 32.4, RDW Std Deviation 42.2, RDW Coeff of Rebekah 12.8, Plt Count 318, MPV 9.7, Immature Gran % (Auto) 0.400, Neut % (Auto) 66.1, Lymph % (Auto) 19.8, [place] % (Auto) 6.7, Eos % (Auto) 6.3 H, Baso % (Auto) 0.7, Absolute Neuts (auto) 5.9, Absolute Lymphs (auto) 1.76, Nucleated RBC % 0, Sodium 138, Potassium 3.7, Chloride 110 H, Carbon Dioxide 25.0, Anion Gap 3 L, BUN 14, Creatinine 0.48 L, Estim Creat Clear Calc 72.71, Est GFR (MDRD) Af Amer 165, Est GFR (MDRD) Non-Af 137, BUN/Creatinine Ratio 28.9 H, Glucose 99, Calcium 9.0 Microbiology: Microbiology 11/29/23 16:10 Stool Clostridioides difficile (PCR) - Final 11/25/23 23:00 Blood Culture (Wb) #2 - Anticubital Left Blood Culture - Preliminary No growth in 48 hours. 11/25/23 22:30 Blood Culture (Wb) - Anticubital Right Blood Culture - Preliminary No growth in 48 hours. 11/26/23 02:30 Urine, Random Legionella Antigen - Final 11/26/23 02:30 Urine, Random Streptococcus pneumoniae Antigen (M - Final 11/25/23 23:15 Mucosa - Nasopharyngeal SARS-CoV-2, Influenza & RSV (PCR) - Final D/C Instructions Discharge Diet: No restrictions Weight Bearing Status: Weight bearing as tolerated Call your doctor if you observe: Fever of 101 or Higher, Coldness, Increased Pain, Numbness or Tingling, Change in Color, Inability to urinate, Inability to have a bowel movement, Using more than 1 pad per hour, Shortness of breath, Dizziness, Fainting spells, Swelling in the ankles, Chest pain, Prolonged hiccupping, Increased palpitations (irregular heartbeat) and Calf discomfort When: IN 2 WEEKS Meaningful Use Info Meaningful Use Diagnoses (Choose all that apply): None applicable Discharge Plan Admission Admit Date/Time: 11/26/23 01:23 Attending Provider: Geovanni Dorantes Primary Care Provider: Alicia Alston Consulting Providers: Tang Long; Lisa Jackson Instructions Additional Instructions / Restrictions: Advised to continue incentive spirometry and Pep for 1 more week. Discharge Orders/Prescriptions Prescriptions: New acidophilus-pectin, citrus 25 million cell -100 mg Tablet 2 tab PO BID Qty: 0 0RF Rx Instructions: For 7 days. levofloxacin 500 mg tablet 500 mg PO DAILY 4 Days Qty: 4 0RF pseudoephedrine-guaifenesin [Mucus D] 120-1,200 mg tablet extended release 12 hr 1 tab PO Q12H 7 Days Qty: 14 0RF Continued aspirin [Adult Low Dose Aspirin] 81 mg tablet,delayed release (DR/EC) 81 mg PO DAILY ascorbic acid (vitamin C) [C Complex] 500 mg tablet extended release 500 mg PO DAILY metoprolol succinate 25 mg tablet extended release 24 hr 25 mg PO DAILY Qty: 90 3RF Referrals / Follow Up: Artie Veronica MD [Med Staff - Active Staff] - Within 1 Month Heladio Clancy DO [Med Staff - Active Staff] - Within 2 Weeks (For PFT and follow-up for pneumonia/hypoxia.) Alicia Alston DO [Primary Care Provider] - Disposition Disposition (needs filled in before D/C Order can be placed): Home, Self Care Charges/Coding Visit Charges Inpatient E&M: 80891 Disch Hosp >30min
--- NOTE | 2023-11-30 13:00 | CASEMGMT ---
KENNETH ZUNIGA updated that patient will need oxygen at discharge. Script received and referral sent to [facility] via [employer]. KENNETH ZUNIGA in to to patient's room to discuss needs at discharge. RN NADIA updated patient regarding oxygen setup. Patient denies further needs or help at discharge. Patient had no further questions or concerns.
--- NOTE | 2023-11-30 14:37 | PHA.DC_ITS ---
Pharmacy [facility] has performed discharge medication reconciliation and counseling for this patient. 1. GUAIFENESIN/PSEUDOEPHEDRINE ER 1200/120MG 1T PO BID X 7 DAYS 2. LACTOBACILLUS 2T PO BID X 7 DAYS 3. LEVOFLOXACIN 500MG PO DAILY X 5 DAYS The patient's discharge medication list was reviewed for discrepancies and discrepancies were resolved. The patient was counseled on the following discharge medications and changes in medications for homegoing were reviewed. The Reason for Use, instructions for use, and potential side effects were reviewed for all new medications. The patient's questions regarding all of their medications were answered. The patient was able to verbally demonstrate an understanding of their discharge medications. Medications at Discharge Home Medications aspirin 81 mg tablet,delayed release (Adult Low Dose Aspirin) 81 mg PO DAILY 01/18/21 metoprolol succinate 25 mg tablet,extended release 24 hr 25 mg PO DAILY #90 tabs 07/28/23 ascorbic acid (vitamin C) 500 mg tablet,extended release (C Complex) 500 mg PO DAILY 11/25/23 acidophilus 25 million cell-pectin, citrus 100 mg tablet 2 tab PO BID #0 tabs 11/30/23 levofloxacin 500 mg tablet 500 mg PO DAILY 4 days #4 tabs 11/30/23 pseudoephedrine-guaifenesin ER 120 mg-1,200 mg tab,extend release 12hr (Mucus D) 1 tab PO Q12H cold symptoms 1 week #14 tabs 11/30/23
--- OUTSIDE RECORDS SUMMARY | 2023-12-05 15:11 | XMS RPT_ITS | CCD ---
Author Name Unknown Address [address] [place] [address] Organization [facility] Care Team Providers Care Call Center Representative Name Role Phone [facility] Primary Care Provider ANNABEL Harris Attending Unavailable [facility] Primary Care Unavailable Allergies Allergy Classification Reported Allergen(s) Allergy Type Date of Onset Reaction(s) Facility (3 sources) Meperidine Drug Allergy 07-31-2015 Rash [facility] (3 sources) Sulfonamides (Antibiotic) Drug Allergy 07-31-2015 Swelling [facility] Medications Current Medications Medication Drug Class(es) Dates [...] 167.6 cm Annabel Miner MD Work Phone: [facility] [employer] 04-19-2023 11:51-0400 Body mass index (BMI) [Ratio] 26.79 kg/m2 Annabel Miner MD Work Phone: [facility] 04-19-2023 11:51-0400 Body weight 75.3 kg Annabel Miner MD Work Phone: [facility] 04-19-2023 11:51-0400 Diastolic blood pressure 79 mm[Hg] Annabel Miner MD Work Phone: [facility] 04-19-2023 11:51-0400 Heart rate 69 /min Annabel Miner MD Work Phone: [facility] 04-19-2023 11:51-0400 Systolic blood pressure 137 mm[Hg] Annabel Miner MD Work Phone: [facility] Encounters Encounter Date Encounter Type Care Provider Facility Start: 04-24-2023 Orders Only Annabel Arita Work Phone: [facility] Start: 04-21-2023 Telephone encounter Samantha COLORADO [facility] Clinical Communication Procedures Date Procedure Procedure Detail Performing Clinician Start: 09-05-2022 Mammography Annabel Orta Work Phone: Start: 04-27-2020 Microscopic observat ion [Identifier] in Cervix by Cyto stain Annabel Miner MD Work Phone: Plan of Treatment Date Care Activity Detail Author Start: 04-27-2025 Screening for malign ant neoplasm of cervix [facility] Start: 04-24-2024 End: 04-24-2024 Patient encounter procedure 04/24/2024 10:00 AM EDT Office Visit [facility] [address] [place] [address] [address] [place] [address] Coty Mcduffie MD [address], [address] [place] [address] [facility] Start: 09-05-2023 Screening for malign ant neoplasm of breast Mammogram [facility] Start: 07-07-2023 Influenza vaccination Influenz a Vaccine (Season Ended) [facility] Start: 05-23-2023 End: 05-23-2023 Professional / ancillary services management 05/23/2023 11:45 AM EDT Ancillary Procedure [facility] [address] [place] [address] [address] [place] [address] [facility] Start: 04-27-2023 Screening for malign ant neoplasm of cervix Pap Smear [facility] Start: 04-19-2023 End: 06-19-2024 MG Breast - bilateral Screening Bilateral screening mammogram Imaging Routine Encounter for screening mammogram for malignant neoplasm of breast Expected: 04/19/2023, Expires: 06/19/2024 [facility] Payers Date Payer Category Payer Private Health Insurance [facility] [place] [id number] 2015-Present [address] [address] [place] [address] Commercial [id number] 2015 Private Health Insurance [id number] Social History Date Type Detail Facility Tobacco smoking status NHIS Never smoked tobacco [facility] Start: 04-19-2023 Alcohol intake Current drinke r of alcohol (finding) [facility] Start: 04-19-2023 History of Social function [facility] Start: 04-19-2023 Tobacco use panel [facility] Start: 1960 Sex Assigned At Not on file S [facility] Start: 04-09-2023 End: 04-19-2023 Exposure to SARS-CoV-2 (event) Not sure [facility] Telephone encounter Note 04-24-2023 Telephone Encounter - Loan Marlow MA - 04/24/2023 9:09 AM EDT Note Date & Type Note Facility 04-24-2023 Telephone encounter Note Form atting of this note might be different from the original. Patient notified Dr Miner sent Rx to pharmacy [facility] Note 04-24-2023 Telephone Encounter - Loan Marlow MA - 04/24/2023 9:09 AM EDTTelephone Encounter - Samantha Lawrence LPN - 04/21/2023 11:41 AM EDT Note Date & Type Note Facility 04-24-2023 Miscellaneous Notes Formattin g of this note might be different from the original. Patient notified Dr Miner sent Rx to pharmacy S: Patient spoke with [facility] nurse regarding medication being sent for yeast [...] TE to provider documented in this encounter [facility] Telephone encounter Note 04-21-2023 Telephone Encounter - Samantha Lawrence LPN - 04/21/2023 11:41 AM EDT Note Date & Type Note Facility 04-21-2023 Telephone encounter Note Form atting of this note might be different from the original. S: Patient spoke with [facility] nurse regarding medication being sent for yeast [...] to provider R: Sent TE to provider [facility] History of Present illness Narrative 04-19-2023 Annabel Miner MD - 04/19/2023 11:45 AM EDT Note Date & Type Note Facility 04-19-2023 History of Presen t illness Narrative Angely Mancia 04/19/2025 62 y.o. Chief Complaint Patient presents with Annual Exam No LMP recorded. Patient is postmenopausal. Primary Care Physician: [facility] HPI : Angely Mancia is [...] (75.3 kg) Height: 5' 6 (1.676 m) [facility]: BREASTS: normal, no masses, tenderness or skin [...] Care Teams (unrecognized sec tion and content) Call Center Representative Relationship Specialty Start Date End Date [facility] [address] [place] [address] PCP - General 04/11/23 Call Center Representative Relationship Specialty Start Date End Date [facility] [address] [place] [address] PCP - General 04/11/23 INFORMATION SOURCE (unrecogn [...] BE BASED ON THE PRIMARY CLINICAL RECORDS. [employer] [facility]. provides no warranty or guarantee of the accuracy or completeness of information in this document.
== END 2023-11-30 15:45 | disposition home or self-care (01) | DRG 193 ==
LOC: ED 11-26 00:05 → PCU 11-26 01:59
PROVIDERS: Internal Medicine; Internal Medicine Critical Care Medicine; Admitting Provider Internal Medicine; Emergency Provider Emergency Medicine; PCP Family Medicine; Visit Provider Internal Medicine
DX: J18.9 Pneumonia, unspecified organism (principal); J96.01 Acute respiratory failure with hypoxia; I48.0 Paroxysmal atrial fibrillation; Z11.52 Encounter for screening for COVID-19; E66.3 Overweight; Z68.27 Body mass index [BMI] 27.0-27.9, adult; Z79.82 Long term (current) use of aspirin; Z87.891 Personal history of nicotine dependence
CPT/HCPCS: 36415; 36600; 71045; 71275; 80048; 80053; 82803; 83605; 83735; 83880; 84100; 84484; 85025; 87040; 87449; 87493; 87631; 87641; 93005; 94003; 94640; 94660; 94762; 99285; J7030; J7040; J7050; Q9967; A4216

== ENCOUNTER → 2023-12-28 | Outpatient (CLI) | payer OTHER, SELFPAY ==
--- NOTE | 2023-12-28 10:50 | RAD_ITS ---
INDICATION: Cough, SOB EXAMINATION/TECHNIQUE: X-RAY - XR Chest 2 Views COMPARISON: 121.4 FINDINGS: LIFE-SUPPORT AND LINES: 1. conveyor monitor is present. HEART AND VESSELS: The cardiac silhouette, pulmonary vasculature have normal appearance. No evidence of congestive failure. LUNGS AND PLEURAL SPACES: Lungs are clear. No focal infiltrate, consolidation or effusions. No evidence of pneumothorax. No pulmonary mass is noted. MEDIASTINUM AND HILAR REGIONS: No masses adenopathy noted. No areas of calcification. Visualized upper airway is normal in position. BONY ELEMENTS: No acute bony changes noted. RAD/Chest PA and Lateral IMPRESSION: 1. No evidence of acute cardiopulmonary process 2. Superficial color television console monitor is noted. Electronically Signed: Sanford Ham MD at 18:30 EST ,
[2023-12-28 11:07] LABS: Absolute Lymphocyte Count 2.12 X10^3/uL (0.83-4.51); Absolute Neutrophil Count 2.5 X10^3/uL (2.0-7.7); Basophil# 0.03 X10^3/uL; Basophil% 0.5 % (0-1); Eosinophil# 0.27 X10^3/uL; Eosinophils% 4.8 % (0-5); Hematocrit 42.9 % (37-47); Hemoglobin 13.7 g/dL (12.0-15.0); Lymphocyte # 2.12 X10^3/ul (0.83-4.51); Lymphocyte % 38.1 % (19-41); Mean Corp Hgb Conc 31.9 g/dL (32-36); Mean Corpuscular Hgb 29.7 pg (27.0-32.0); Mean Corpuscular Volume 93.1 fL (81-99); Mean Platelet Vol. 9.3 fl (6.2-12.0); Monocyte# 0.61 X10^3/uL; NRBC Flagged by Analyzer 0 % (0-5); Neutrophil # 2.53 X10^3/uL (2.7-7.7); Neutrophil % 45.4 % (47-70); Platelet Count 231 K/mm3 (150-450); RBC Distribution Width CV 13.8 % (11.6-14.6); RBC Distribution Width SD 47.1 fl (35.1-43.9); Red Blood Count 4.61 M/mm3 (4.2-5.4); White Blood Count 5.6 K/mm3 (4.4-11.0)
[2023-12-28 11:51] LABS: BNP,B-Type NATRIURETIC PEPTIDE 65.6 pg/mL (0-100)
[2023-12-28 11:56] LABS: ALB/GLOB Ratio 0.8 RATIO (0.9-2.4); AST(SGOT) 16 U/L (15-37); Alanine Aminotransfer ALT/SGPT 28 U/L (13-56); Albumin, Serum 3.4 g/dL (3.2-5.0); Alkaline Phosphatase 59 U/L (45-117); Anion Gap 3 (5-15); BUN 17 mg/dL (7-18); BUN/Creat Ratio 29.6 RATIO (10-20); Calcium,Total 8.9 mg/dL (8.5-10.1); Chloride 109 mmol/L (98-107); Creatinine, Serum 0.57 mg/dL (0.55-1.02); EST Glomerular Filtration Rate 112 mL/min (>60); Est Glom Filt Rate - Afr Amer 136 mL/min (>60); Glucose 101 mg/dL (74-106); Potassium 4.1 mmol/L (3.5-5.1); Protein, Total 7.4 g/dL (6.4-8.2); Sodium Level 140 mmol/L (136-145)
== END | disposition home or self-care (01) ==
LOC: RAD 10:46
PROVIDERS: PCP Family Medicine; Referring Provider Nurse Practitioner Family; Visit Provider Nurse Practitioner Family
DX: R06.09 Other forms of dyspnea (principal); R05.9 Cough, unspecified
CPT/HCPCS: 36415; 71046; 80053; 83735; 83880; 85025

== ENCOUNTER 2024-02-14 22:50 | Emergency (ER) | payer MEDICARE, OTHER, SELFPAY ==
[2024-02-14 22:50] VITALS: BP 128/76; PULSE 96; RESP 18; TEMP 37.7; O2SAT 94; BMI 27.8
[2024-02-14 22:53] VITALS: BP 102/60; PULSE 83; RESP 24; TEMP 37.7; O2SAT 93
--- NOTE | 2024-02-14 22:59 | RAD_ITS ---
EXAM: XR CHEST, 1 VIEW CLINICAL INDICATION: fever TECHNIQUE: Frontal view of the chest. COMPARISON: November 26, 2023. FINDINGS: LUNGS AND PLEURAL SPACES: Unremarkable. No consolidation or edema. No pneumothorax. No effusion. HEART: Superficial battery type youth nutritional monitor again noted projecting over the left heart. MEDIASTINUM: Central airways and mediastinal contour are unremarkable. BONES/JOINTS: Unremarkable. No acute fracture. SOFT TISSUES: Unremarkable. RAD/Chest 1 View (Portable) IMPRESSION: No acute findings in the chest. Electronically Signed: Joseline Hernandez MD at 0:33 EDT ,
--- NOTE | 2024-02-14 23:05 | EDS_ITS ---
HPI History of Present Illness Chief Complaint: Fever Narrative Narrative: 63-year-old female presenting with fever. She states her pulse ox was 84% at home. She states she was told to come antibiotics Dr. Clancy on her previous admission if she had low oxygen levels. She has not had low oxygen's until today. Started getting sick earlier with a fever of 104 ?F and bodyaches and chills eyes. She is not coughing severely. No severe headache but mild. No visual complaints. No chest pain or shortness. No abdominal. # Lungs. PFSH PFSH Medical History Acute hypoxic respiratory failure Alcohol use Amaurosis fugax of right eye Cardiology follow-up encounter Former smoker History of diverticulitis History of echocardiogram Intermittent palpitations Migraine headache Post-menopausal Supraventricular tachycardia Wears contact lenses Home Medications aspirin 81 mg tablet,delayed release (Adult Low Dose Aspirin) 81 mg PO DAILY 01/18/21 [History Last Taken Unknown] metoprolol succinate 25 mg tablet,extended release 24 hr 25 mg PO DAILY #90 tabs 07/28/23 [Rx Last Taken Unknown] ascorbic acid (vitamin C) 500 mg tablet,extended release (C Complex) 500 mg PO DAILY 11/25/23 [History Last Taken Unknown] levofloxacin 500 mg tablet 500 mg PO DAILY #7 tabs 02/15/24 [Rx Last Taken Unknown] Allergy/AdvReac Type Severity Reaction Status Date / Time Sulfa (Sulfonamide Allergy hand Verified 02/14/24 22:53 Antibiotics) swelling meperidine [From Demerol] AdvReac vein Verified 02/14/24 22:53 irritation Family History Mother blood clots Hypertension Heart disease CHF Colon polyps Father Hypertension Parkinson disease Brother Hypertension Sister Colon polyps Surgical History History of History of left heart catheterization (11/29/01) History of loop recorder (01/26/21) History of tubal ligation Social History Smoking Status: Former smoker how long ago did patient quit smokin years ago alcohol intake: current alcohol intake frequency: holidays/special occasions only substance use type: does not use caffeine: Yes Type: coffee Number of servings: 2 ROS ROS ED Constitutional Constitutional ED: Reports chills and fever(s); Denies sweats Eyes Eyes: Denies blurry vision or change in vision ENT ENT ED: Denies ear pain Cardiovascular Cardiovascular: Denies chest pain, palpitations or racing heartbeat Respiratory/Chest Respiratory/Chest: Reports cough; Denies sputum Gastrointestinal Gastrointestinal: Denies abdominal pain, constipation, diarrhea, nausea or vomiting Genitourinary Genitourinary ED: Denies dysuria, hematuria or urinary frequency Musculoskeletal Musculoskeletal: Reports myalgias; Denies arthralgias or neck pain Integumentary Denies abscess, Abrasions or rash Neurologic Neurologic: Denies headache(s), paresthesias or weakness Psychiatric Psychiatric: Denies anxiety, depression, suicidal ideation or suicidal thoughts Endocrine Endocrinology: Denies polydipsia or polyuria EXAM Physical Exam Const Vital Signs: 02/14/24 22:50 02/14/24 22:53 02/14/24 23:34 Temperature 99.8 F H 99.8 F H Temperature Source Oral Oral Pulse Rate 96 83 Respiratory Rate 18 24 H Respiratory Effort Normal Respiratory Pattern Normal Blood Pressure 128/76 H 102/60 Blood Pressure Mean 93 74 Pulse Ox 94 93 Oxygen Delivery Method Room Air Room Air 02/14/24 23:53 02/15/24 00:00 02/15/24 00:50 Temperature 99.8 F H 100.1 F H Temperature Source Oral Oral Pulse Rate 85 84 84 Respiratory Rate 24 H 23 H 24 H Respiratory Effort Respiratory Pattern Blood Pressure 114/59 L 114/59 L 114/59 L Blood Pressure Mean 77 77 77 Pulse Ox 92 93 92 Oxygen Delivery Method Room Air Room Air Room Air 02/15/24 01:00 Temperature 100.1 F H Temperature Source Oral Pulse Rate 86 Respiratory Rate 16 Respiratory Effort Respiratory Pattern Blood Pressure 97/77 Blood Pressure Mean 83 Pulse Ox 93 Oxygen Delivery Method Room Air MDM MDM MDM Narrative Medical decision making narrative: Patient presenting with fever. Her concern was that she had a low pulse ox. Vital signs are currently stable and she is afebrile. She took ibuprofen prior to arrival. O2 sat 94% on room air. Will obtain ambulating pulse ox. Patient will be tested for COVID, influenza, RSV. IV line was established and she given a liter normal saline. Chest x-ray will be obtained to rule out pneumonia as patient has concern for this due to previous pneumonia requiring hospitalization. CBC to assess white blood cell count, hemoglobin, platelets. BMP to assess renal function, creatinine and glucose. Urinalysis to assess for UTI. Urinalysis is negative. CBC shows mild leukocytosis of 14.8. Hemoglobin 13.9. Platelets 237. Renal function and electrolytes within normal limits. Patient was ambulated on pulse ox to maintain saturations of 92%. She had a low-grade fever here of 100.1 and was given Tylenol. Her viral testing is all negative. Given her history of hypoxic respiratory failure and recent admission for pneumonia as well as her white blood cell count at 14.8. After long discussion and we will put her on Levaquin as an outpatient and treat her as pneumonia. Return precautions were discussed. Impression: 1. Pneumonia 2. Febrile illness 3. Leukocytosis Lab Data Labs: Laboratory Results - last 24 hr 02/14/24 02/14/24 23:26 23:30 WBC 14.8 H RBC 4.71 Hgb 13.9 Hct 41.8 MCV 88.7 MCH 29.5 MCHC 33.3 RDW Std Deviation 44.8 H RDW Coeff of Rebekah 13.7 Plt Count 237 MPV 9.8 Immature Gran % (Auto) 0.400 Neut % (Auto) 90.6 H Lymph % (Auto) 4.7 L Nash % (Auto) 3.5 Eos % (Auto) 0.5 Baso % (Auto) 0.3 Absolute Neuts (auto) 13.4 H Absolute Lymphs (auto) 0.70 L Nucleated RBC % 0 Sodium 140 Potassium 3.9 Chloride 109 H Carbon Dioxide 26.0 Anion Gap 5 BUN 25 H Creatinine 0.83 Estim Creat Clear Calc 71.28 Est GFR (MDRD) Af Amer 89 Est GFR (MDRD) Non-Af 73 BUN/Creatinine Ratio 30.2 H Glucose 124 H Calcium 9.2 Urine Color Yellow Urine Clarity Clear Urine pH 6.5 Ur Specific [place] 1.020 Urine Protein 30 H Urine Glucose (UA) Normal Urine Ketones 5 H Urine Occult Blood 10 H Urine Nitrite Negative Urine Bilirubin 1 H Urine Urobilinogen 1 H Ur Leukocyte Esterase 500 H Urine RBC 5-10 SEEN Urine WBC 10-25 SEEN Ur Squamous Epith Cells 0-5 SEEN Calcium Oxalate Crystal 1+ Urine Bacteria 0 SEEN Hyaline Casts 0-5 SEEN Fine Granular Casts 0-5 SEEN Urine Mucus 1+ Radiography Diagnostic Testing: Clinical Impression(s) from Imaging Studies Chest X-Ray 02/14/24 22:59 IMPRESSION: No acute findings in the chest. Electronically Signed: Joseline Hernandez MD at 0:33 EDT Reading Location ID and State: [facility] / MD Tel , Service support , Discharge Plan Triage Chief Complaint: Fever ED Provider: Adonis Marlow Dx/Rx/DC Orders Instructions: ED Pneumonia (Adult) Prescriptions: New levofloxacin 500 mg tablet 500 mg PO DAILY Qty: 7 0RF No Action aspirin [Adult Low Dose Aspirin] 81 mg tablet,delayed release (DR/EC) 81 mg PO DAILY ascorbic acid (vitamin C) [C Complex] 500 mg tablet extended release 500 mg PO DAILY metoprolol succinate 25 mg tablet extended release 24 hr 25 mg PO DAILY Qty: 90 3RF Primary Care Provider: Alicia Alston Referrals: Alicia Alston DO [Primary Care Provider] - Disposition Disposition: Home, Self Care
[2024-02-14] MEDS: 0.9% Normal Saline (1000mL) 1,000 ML 999 ML IV (23:26)
[2024-02-14 23:34] VITALS: O2SAT 94
[2024-02-14 23:36] LABS: Absolute Neutrophil Count 13.4 X10^3/uL (2.0-7.7); Basophil# 0.04 X10^3/uL; Basophil% 0.3 % (0-1); Eosinophil# 0.08 X10^3/uL; Eosinophils% 0.5 % (0-5); Hematocrit 41.8 % (37-47); Hemoglobin 13.9 g/dL (12.0-15.0); Lymphocyte % 4.7 % (19-41); Mean Corp Hgb Conc 33.3 g/dL (32-36); Mean Corpuscular Hgb 29.5 pg (27.0-32.0); Mean Corpuscular Volume 88.7 fL (81-99); Mean Platelet Vol. 9.8 fl (6.2-12.0); Monocyte# 0.52 X10^3/uL; Monocyte% 3.5 % (0-10); NRBC Flagged by Analyzer 0 % (0-5); Neutrophil # 13.37 X10^3/uL (2.7-7.7); Neutrophil % 90.6 % (47-70); Platelet Count 237 K/mm3 (150-450); RBC Distribution Width CV 13.7 % (11.6-14.6); RBC Distribution Width SD 44.8 fl (35.1-43.9); Red Blood Count 4.71 M/mm3 (4.2-5.4); White Blood Count 14.8 K/mm3 (4.4-11.0)
[2024-02-14 23:36] LABS: Bacteria 0 SEEN /hpf (None Seen)
[2024-02-14 23:38] LABS: Color, Urine Yellow (Yellow); Glucose, Dipstick Normal (Normal); Ketone-Dipstick 5 mg/dl (Negative); Leukocyte Esterase-Dipstick 500 /ul (Negative); Nitrite-Dipstick Negative (Negative); Occult Blood-Urine 10 /ul (Negative); Protein-Dipstick 30 mg/dl (Negative); Urine Clarity Clear (Clear); Urine Urobilinogen 1 mg/dl (Normal); Urine pH 6.5 (5.0 - 8.0)
[2024-02-14 23:51] LABS: Anion Gap 5 (5-15); BUN 25 mg/dL (7-18); BUN/Creat Ratio 30.2 RATIO (10-20); Calcium,Total 9.2 mg/dL (8.5-10.1); Chloride 109 mmol/L (98-107); Creatinine, Serum 0.83 mg/dL (0.55-1.02); EST Glomerular Filtration Rate 73 mL/min (>60); Est Glom Filt Rate - Afr Amer 89 mL/min (>60); Estimated Creatinine Clearance 71.28 ml/min; Glucose 124 mg/dL (74-106); Potassium 3.9 mmol/L (3.5-5.1); Sodium Level 140 mmol/L (136-145)
[2024-02-14 23:53] VITALS: BP 114/59; PULSE 85; RESP 24; TEMP 37.7; O2SAT 92
[2024-02-14 23:57] LABS: Red Blood Cells-Urine 5-10 SEEN /hpf (0-5); Squamous Epithelial Cells - UA 0-5 SEEN /hpf (5-10); Urine Bilirubin Dipstick 1 mg/dL (Negative); White Blood Cells 10-25 SEEN /hpf (0-5)
[2024-02-14 23:58] LABS: Calcium Oxalate Crystals Ur 1+ /hpf (<or=2+); Fine Granular Cast- Urine 0-5 SEEN /lpf (0-5); Hyaline Cast 0-5 SEEN /lpf (0-5); Mucous, Urine 1+ /hpf (<or=2+)
[2024-02-15] VITALS: BP 114/59; PULSE 84; RESP 23; TEMP 37.8; O2SAT 93
[2024-02-15 00:50] VITALS: BP 114/59; PULSE 84; RESP 24; O2SAT 92
[2024-02-15] MEDS: Acetaminophen 500 MG Tablet 1000 MG PO (00:58)
[2024-02-15 01:00] VITALS: BP 97/77; PULSE 86; RESP 16; TEMP 37.8; O2SAT 93
[2024-02-15 01:47] VITALS: BP 97/77; PULSE 86; RESP 20; TEMP 36.9; O2SAT 94
[2024-02-15] MEDS: levoFLOXacin 500 MG Tablet PO (01:52)
== END 2024-02-15 01:52 | disposition home or self-care (01) ==
PROVIDERS: Emergency Provider Student in an Organized Health Care Education/Training Program; PCP Family Medicine; Visit Provider Student in an Organized Health Care Education/Training Program
DX: J18.9 Pneumonia, unspecified organism (principal); J96.91 Respiratory failure, unspecified with hypoxia; D72.829 Elevated white blood cell count, unspecified; Z79.82 Long term (current) use of aspirin; Z79.899 Other long term (current) drug therapy; Z87.891 Personal history of nicotine dependence
CPT/HCPCS: 71045; 80048; 81001; 85025; 87631; 96360; 96361; 99285; J7030; A4216

== ENCOUNTER → 2024-10-14 | Outpatient (CLI) | payer MEDICARE, OTHER, SELFPAY ==
--- NOTE | 2024-10-14 13:28 | BI_ITS ---
MAMMOGRAPHY - BILATERAL SCREENING REASON FOR EXAM: Female, 64 years old. Routine annual screening examination. PERTINENT HISTORY: Non-contributory. TECHNIQUE: Digital bilateral breast roshan (3D mammographic acquisition) in the CC and MLO projections. 2-D mediolateral oblique (MLO) and craniocaudad (CC) views of both breasts were obtained. CAD: Full Field Digital Mammography with Computer Added Detection was performed. COMPARISON: Comparison is made with prior study dated September 13, 2023 and September 05, 2022. FINDINGS: Breast Composition: The breasts are heterogeneously dense, which may obscure small masses. There are no dominant masses or suspicious calcifications. A loop recording device is seen in the deep slightly upper medial aspect of the left breast. No other significant abnormalities are identified. There has been no significant change since the prior study. BI/SCRN MAMM (CAD)W/ROSHAN BILAT IMPRESSION: Stable bilateral screening mammogram. Yearly follow-up mammogram recommended. (A) ASSESSMENT CATEGORY: BIRADS Category 2: Benign. A letter regarding these results will be sent to the patient by the facility within 30 days. Approximately 10% of breast cancers are not detected by mammography. A normal mammogram should not delay biopsy of a clinically suspicious abnormality. [id number] Electronically Signed: Satya Brooks MD at 14:33 EST ,
== END | disposition home or self-care (01) ==
LOC: OPBI 13:26
PROVIDERS: PCP Family Medicine; Referring Provider Family Medicine; Visit Provider Family Medicine
DX: Z12.31 Encounter for screening mammogram for malignant neoplasm of breast (principal)
CPT/HCPCS: 77063; 77067

== ENCOUNTER → 2024-12-16 | Outpatient (CLI) | payer MEDICARE, OTHER, SELFPAY ==
[2024-12-16 12:29] LABS: Absolute Lymphocyte Count 1.76 X10^3/uL (0.83-4.51); Absolute Neutrophil Count 2.5 X10^3/uL (2.0-7.7); Basophil# 0.04 X10^3/uL; Basophil% 0.8 % (0-1); Eosinophil# 0.22 X10^3/uL; Eosinophils% 4.4 % (0-5); Lymphocyte # 1.76 X10^3/ul (0.83-4.51); Lymphocyte % 35.1 % (19-41); Mean Corp Hgb Conc 33.3 g/dL (32-36); Mean Corpuscular Hgb 30.4 pg (27.0-32.0); Mean Corpuscular Volume 91.3 fL (81-99); Mean Platelet Vol. 10.1 fl (6.2-12.0); Monocyte# 0.49 X10^3/uL; Monocyte% 9.8 % (0-10); NRBC Flagged by Analyzer 0 % (0-5); Neutrophil % 49.9 % (47-70); Platelet Count 260 K/mm3 (150-450); RBC Distribution Width CV 12.9 % (11.6-14.6); RBC Distribution Width SD 43.4 fl (35.1-43.9)
[2024-12-16 12:35] LABS: Vitamin D,25 Hydroxy 33.4 ng/mL
[2024-12-16 12:51] LABS: Erythrocyte Sedimentation Rate 4 mm/hr (0-30)
[2024-12-16 12:52] LABS: AST(SGOT) 15 U/L (15-37); Alanine Aminotransfer ALT/SGPT 20 U/L (13-56); Albumin, Serum 3.5 g/dL (3.2-5.0); Alkaline Phosphatase 60 U/L (45-117); Anion Gap 6 (5-15); BUN 14 mg/dL (7-18); BUN/Creat Ratio 22.7 RATIO (10-20); CRP < 2.90 mg/L (0.0-3.0); Calcium,Total 8.7 mg/dL (8.5-10.1); Chloride 109 mmol/L (98-107); Cholesterol 190 mg/dL (200); Creatinine, Serum 0.62 mg/dL (0.55-1.02); EST Glomerular Filtration Rate 103 mL/min (>60); Est Glom Filt Rate - Afr Amer 125 mL/min (>60); Globulin 3.6 g/dL (2.2-4.2); Glucose 100 mg/dL (74-106); High Density Lipoprotein 75 mg/dL; Potassium 3.9 mmol/L (3.5-5.1); Protein, Total 7.1 g/dL (6.4-8.2); Rheumatoid Factor < 10.0 IU/mL (<15); Sodium Level 140 mmol/L (136-145); Triglycerides 78 mg/dL; Very Low Density Lipoprotein 16 mg/dL (5-40)
[2024-12-17 10:07] LABS: ANTINUCLEAR ANTIBODIES DIRECT Negative (Negative)
[2024-12-17 13:07] LABS: CCP IgG Antibodies 0 units (0-19)
== END | disposition home or self-care (01) ==
LOC: BFHLAB 10:39
PROVIDERS: PCP Family Medicine; Referring Provider Family Medicine; Visit Provider Family Medicine
DX: M79.10 Myalgia, unspecified site (principal); M25.50 Pain in unspecified joint; E55.9 Vitamin D deficiency, unspecified; Z51.81 Encounter for therapeutic drug level monitoring
CPT/HCPCS: 36415; 80053; 80061; 82306; 85025; 85652; 86038; 86140; 86200; 86431

== ENCOUNTER → 2025-02-18 | Outpatient (CLI) | payer MEDICARE, OTHER, SELFPAY ==
[2025-02-18 12:27] LABS: Anion Gap 11 (5-15); BUN 13 mg/dL (4-19); BUN/Creat Ratio 21.3 RATIO (10-20); Calcium,Total 9.2 mg/dL (7.6-11.0); Carbon Dioxide 23.5 mmol/L (21.0-32.0); Chloride 105 mmol/L (98-108); Creatinine, Serum 0.62 mg/dL (0.70-1.20); EST Glomerular Filtration Rate 98 (>60); Glucose 94 mg/dL (70-99); Potassium 4.2 mmol/L (3.3-5.1); Sodium Level 139 mmol/L (133-145)
== END | disposition home or self-care (01) ==
LOC: LAB 10:34
PROVIDERS: PCP Family Medicine; Referring Provider Internal Medicine Cardiovascular Disease; Visit Provider Internal Medicine Cardiovascular Disease
DX: I48.0 Paroxysmal atrial fibrillation (principal)
CPT/HCPCS: 36415; 80048

== ENCOUNTER 2025-02-27 10:53 | Day surgery (SDC) | payer MEDICARE, OTHER, SELFPAY ==
[2025-02-26 10:24] VITALS: BMI 26.4
--- NOTE | 2025-02-27 12:38 | CL.IE_ITS ---
Patient: SANCHO SHANNON Study Date: 02/27/2025 Performing: Artie Veronica MD : 1960 Age: 64 Gender: female PROCEDURES PERFORMED LP02-([id number])REMOVAL OF LOOP RECORDER INDICATIONS Atrial fibrillation/TIA PROCEDURE DETAILS The patient was brought to the Catheterization Lab in the postabsorptive nonsedated state. Informed consent was obtained prior to the procedure. Local anesthetic was given subcutaneously to the left subclavian region with Lidocaine 2%. Incision was made to the left subclavicular area. ICM Loop Recorder was removed. Steri-strips applied to left subclavicular incision. The patient tolerated the procedure well. Estimated Blood Loss: 0 ml's IMPLANTED / EX-PLANTED DEVICES DEVICE PARAMETERS CONCLUSIONS / RECOMMENDATIONS Device Conclusions: Successful removal of a patient activated loop recorder. Device Recommendations: Follow up with Primary Care Physician PROCEDURE MEDICATIONS Antibiotic given in appropriate timeframe. Ancef 2 Gm IV @ 02/27/2025 12:20:27 Signed By Artie Veronica MD On 02/27/2025 12:37:38 Artie Veronica MD
== END 2025-02-27 12:50 | disposition home or self-care (01) ==
PROVIDERS: PCP Family Medicine; Referring Provider Internal Medicine Cardiovascular Disease; Visit Provider Internal Medicine Cardiovascular Disease
DX: Z45.09 Encounter for adjustment and management of other cardiac device (principal); I48.0 Paroxysmal atrial fibrillation; Z79.899 Other long term (current) drug therapy; Z86.73 Personal history of transient ischemic attack (TIA), and cerebral infarction without residual deficits; Z87.891 Personal history of nicotine dependence
CPT/HCPCS: 33286

== ENCOUNTER → 2025-03-03 | Outpatient (CLI) | payer MEDICARE, OTHER, SELFPAY ==
[2025-03-03 12:21] LABS: Free T3 2.7 pg/mL (2.18-3.98)
== END | disposition home or self-care (01) ==
LOC: LAB 11:03
PROVIDERS: PCP Family Medicine; Referring Provider Family Medicine; Visit Provider Family Medicine
DX: E03.9 Hypothyroidism, unspecified (principal)
CPT/HCPCS: 36415; 84432; 84439; 84442; 84443; 84481; 84482; 86376; 86800

== ENCOUNTER → 2025-05-22 | Outpatient (CLI) | payer MEDICARE, OTHER, SELFPAY ==
[2025-05-22 16:36] LABS: AST(SGOT) 19 U/L (<=31); Alanine Aminotransfer ALT/SGPT 16 U/L (<=34); Albumin, Serum 4.1 g/dL (3.4-4.8); Alkaline Phosphatase 59 U/L (35-104); Anion Gap 12 (5-15); BUN 13 mg/dL (4-19); BUN/Creat Ratio 22.6 RATIO (10-20); Calcium,Total 9.4 mg/dL (7.6-11.0); Carbon Dioxide 22.2 mmol/L (21.0-32.0); Chloride 106 mmol/L (98-108); Globulin 2.8 g/dL (2.2-4.2); Glucose 92 mg/dL (70-99); Magnesium 2.3 mg/dL (1.5-2.2); Potassium 4.3 mmol/L (3.3-5.1)
== END | disposition home or self-care (01) ==
LOC: BFHLAB 12:05
PROVIDERS: PCP Family Medicine; Visit Provider Family Medicine
DX: E83.42 Hypomagnesemia (principal); R25.2 Cramp and spasm
CPT/HCPCS: 36415; 80053; 83735

== ENCOUNTER → 2025-07-14 | Outpatient (CLI) | payer MEDICARE, OTHER, SELFPAY | END | disposition home or self-care (01) | LOC: PSN 08:02 | PROVIDERS: PCP Family Medicine; Referring Provider Nurse Practitioner Gerontology; Visit Provider Nurse Practitioner Gerontology | DX: R00.2 Palpitations (principal) | CPT/HCPCS: 93225; 93226 ==

== ENCOUNTER → 2025-11-03 | Outpatient (CLI) | payer MEDICARE, OTHER, SELFPAY ==
--- NOTE | 2025-11-03 08:07 | BI_ITS ---
EXAM: SCRN MAMM (CAD)W/ROSHAN BILAT DATE: 11/03/2025 CLINICAL HISTORY: F, Age 65 y/o , SCREENING TECHNIQUE: Procedure Code: [id number] Modality: MG Procedure: SCRN MAMM (CAD)W/ROSHAN BILAT COMPARISON: Prior exam(s) were compared FINDINGS: TISSUE DENSITY: The breasts are heterogeneously dense, which may obscure small masses. Bilateral Breast Mammographic Findings: No significant masses, calcifications or other abnormalities are identified. BI/SCRN MAMM (CAD)W/ROSHAN BILAT IMPRESSION: No mammographic evidence of malignancy. OVERALL FINAL ASSESSMENT BI-RADS 1: NEGATIVE. RECOMMENDATION: Routine annual follow-up in 1 Year Additional Recommendation none A letter with findings and recommendations will be mailed to the patient. Reading Location: [id number]
== END | disposition home or self-care (01) ==
LOC: OPBI 08:06
PROVIDERS: PCP Family Medicine; Referring Provider Family Medicine; Visit Provider Family Medicine
DX: Z12.31 Encounter for screening mammogram for malignant neoplasm of breast (principal)
CPT/HCPCS: 77063; 77067